=== PATIENT | female | born 1965 | race Caucasian/White ===

== ENCOUNTER 2018-08-12 06:33 | Inpatient (IN) | payer OTHER ==
[~2018-08-12] VITALS: Ht 144.8 cm; Wt 45.5 kg
[~2018-08-12 06:33] MED LIST: ACET-514 PO; ATOR20TA38 PO; CHOL100062 PO; CLON-379 PO; DICL100G37 TOP; DOCU-144 PO; ENOX40DI12 SQ; FER325 PO; HYDR5TAB7 PO; LACO10SO PO; LACT1CAP28 PO; LEVO500T48 PO; LEVO50TA7 PO; LIDO700A29 TP; LOPE-123 PO; METO-429 PO; METO-448 PO; MULTI PO; NIFE60TA18 PO; NIFE90TA PO; ONDA4TAB13 PO; ONDA4TAB14 PO; OXCA300T41 PO; PANT40TA4 PO; RISP0.2553 PO; SENOKOTS PO; SODI650T PO
--- NOTE | 2018-08-12 07:08 | ERD ---
ER Documentation Chief Complaint Chief Complaint ruma le pain r. more than l. HPI 53-year-old female history of hypertension, dyslipidemia, adrenal insufficiency, hypothyroidism, seizure disorder, recent left femoral subcapital femur fracture being treated conservatively, left pelvic fracture and recent admission August 02, 2018 through August 10, 2018 for encephalopathy presumed secondary to urinary tract infection presents the ED complaining of a 1 day history of severe, sharp, crampy and pressure-like right lower leg/calf pain which radiates up to her hip. Denies any trauma or injury since discharge. Denies weakness or numbness. No shortness of breath, cough or hemoptysis. Denies chest pain or palpitations. Mild nausea but no vomiting, hematochezia, melena or abdominal pain. No skin rash. No fevers or chills. ROS All systems reviewed and are negative except as per history of present illness. Medications Home Meds Active Scripts Levothyroxine Sodium* (Levothyroxine Sodium*) 50 Mcg Tablet, 50 MCG PO BEFORE BREAKFAST for 30 Days, #30 TAB Prov:ANALISA MOSS MD 08/10/18 Nifedipine (Procardia Xl) 90 Mg Tab.er.24, 90 MG PO DAILY for 10 Days, #10 TAB 1 Refill Prov:ANALISA MOSS MD 08/10/18 Metoprolol Tartrate* (Lopressor*) 50 Mg Tab, 50 MG PO BID for 10 Days, #20 TAB 1 Refill Prov:ANALISA MOSS MD 08/10/18 Ferrous Sulfate* (Ferrous Sulfate*) 325 Mg Tabec, 325 MG PO TID for 30 Days, #30 TAB 1 Refill Prov:ANALISA MOSS MD 08/10/18 Sennosides/Docusate Sodium (Dok Plus Tablet) 1 Each Tablet, 2 TAB PO HS for 7 Days, TAB Prov:ANALISA MOSS MD 08/09/18 Pantoprazole* (Pantoprazole*) 40 Mg Tablet.dr, 40 MG PO BID@0600,1800 for 10 Days Prov:ANALISA MOSS MD 08/09/18 Lactobacillus Rhamnosus GG (Culturelle) 1 Each Capsule, 1 CAP PO BID for 10 Days, CAP Prov:ANALISA MOSS MD 08/09/18 Risperidone* (Risperdal*) 0.25 Mg Tablet, 0.25 MG PO BID for 10 Days, TAB Prov:ANALISA MOSS MD 08/09/18 Lacosamide (Vimpat) 10 Mg/1 Ml Solution, 100 MG PO BID for 30 Days Prov:ANALISA MOSS MD 08/09/18 Oxcarbazepine* (Oxcarbazepine*) 300 Mg Tablet, 300 MG PO BID for 30 Days, TAB Prov:ANALISA MOSS MD 08/09/18 Docusate Sodium* (Colace*) 100 Mg Capsule, 100 MG PO TID, #30 CAP Prov:SARWAT CEDILLO 08/02/18 Reported Medications Sodium Bicarbonate* (Sodium Bicarbonate*) 650 Mg Tablet, 1950 MG PO TID, TAB 08/02/18 Ondansetron Hcl* (Zofran*) 4 Mg Tab, 4 MG PO Q6H PRN for NAUSEA AND OR VOMITING, TAB 08/02/18 Multivitamins* (Theragran*) 1 Tab Tab, 1 TAB PO DAILY, TAB 08/02/18 Lidocaine (Lidoderm) 1 Each Adh..patch, 1 EACH TP DAILY 08/02/18 Enoxaparin Sodium (Enoxaparin Sodium) 40 Mg/0.4 Ml Syringe, 40 MG SQ DAILY, SYR 08/02/18 Diclofenac Sodium* (Voltaren* Gel) 1% -100 Gm Gel, 2 GM TOP QID, #1 TUB 08/02/18 Clonidine Hcl* (Clonidine Hcl*) 0.1 Mg Tab, 0.1 MG PO BID PRN for ELEVATED BLOOD PRESSURE, TAB 08/02/18 Metoprolol Tartrate* (Lopressor*) 25 Mg Tab, 25 MG PO BID for HOLD IF BP <100 OR HR <55, #60 TAB 08/02/18 Loperamide Hcl* (Loperamide Hcl*) 2 Mg Cap, 2 MG PO QID PRN for DIARRHEA, CAP 08/02/18 Cholecalciferol* (Vitamin D3*) 1,000 Unit Tablet, 1000 UNIT PO DAILY, TAB 08/02/18 Nifedipine* (Nifedipine ER*) 60 Mg Tablet.sa, 60 MG PO DAILY, TAB.SA 08/02/18 Atorvastatin Calcium* (Atorvastatin Calcium*) 20 Mg Tablet, 40 MG PO DAILY, #30 TAB 08/02/18 Acetaminophen (Acetaminophen) 325 Mg Tablet, 650 MG PO Q6 PRN for PAIN, TAB 08/02/18 Discontinued Reported Medications Potassium Chloride* (Potassium Chloride*) 20 Meq Tablet.er, 20 MEQ PO BID, TAB.SA 08/02/18 Hydrocortisone* (Cortef*) 5 Mg Tab, 15 MG PO AT 9AM, #180 TAB 08/02/18 Hydrocortisone* (Cortef*) 5 Mg Tab, 10 MG PO QHS, #120 TAB 08/02/18 Hydrocortisone* (Cortef*) 5 Mg Tab, 5 MG PO AT 2PM, #60 TAB 08/02/18 Lacosamide (Vimpat) 200 Mg Tablet, 200 MG PO BID, TAB 08/02/18 Famotidine* (Famotidine*) 40 Mg Tablet, 40 MG PO BID, #60 TAB 08/02/18 Discontinued Scripts Hydrocortisone (Hydrocortisone) 5 Mg Tablet, 7.5 MG PO 1500 for 10 Days, TAB Prov:ANALISA MOSS MD 08/09/18 Hydrocortisone (Hydrocortisone) 5 Mg Tablet, 2.5 MG PO QHS for 10 Days, TAB Prov:ANALISA MOSS MD 08/09/18 Hydrocortisone (Hydrocortisone) 5 Mg Tablet, 12.5 MG PO AC BREAKFAST for 10 Days, TAB Prov:ANALISA MOSS MD 08/09/18 Levofloxacin* (Levaquin*) 500 Mg Tablet, 500 MG PO Q48H for 3 Days, TAB Prov:ANALISA MOSS MD 08/09/18 Ondansetron (Ondansetron Odt) 4 Mg Tab.rapdis, 4 MG PO Q6H PRN for NAUSEA AND/OR VOMITING, #10 TAB Prov:SARWAT CEDILLO 08/02/18 Tramadol HCl (Tramadol HCl) 50 Mg Tablet, 50 MG PO Q4 PRN for PAIN, #20 TAB Prov:SARWAT CEDILLO 08/02/18 Allergies Allergies: Coded Allergies: No Known Allergy (Unverified , 08/12/18) PMhx/Soc Reviewed in chart. As per HPI. Lives with family History of Surgery: Yes (HYSTERECTOMY, , STENTS) Anesthesia Reaction: No Hx Neurological Disorder: Yes (CVA, SEIZURES) Hx Respiratory Disorders: No Hx Cardiac Disorders: Yes (HTN, HYPOTENSION) Hx Psychiatric Problems: Yes (HALLUCINATIONS) Hx Miscellaneous Medical Probl: No Hx Alcohol Use: No Hx Substance Use: No Hx Tobacco Use: No FmHx No stroke or cancer Physical Exam Vitals Vital Signs Date Temp Pulse Resp B/P (MAP) Pulse Ox O2 O2 Flow FiO2 Time Delivery Rate 08/12/18 99.0 131 20 170/76 98 Room Air 12:00 (107) 08/12/18 99.0 120 20 168/66 98 Room Air 11:00 (100) 08/12/18 99.0 122 20 155/91 98 Room Air 10:58 (112) 08/12/18 101.6 126 20 155/91 100 Room Air 10:00 (112) 08/12/18 Nasal 08:09 Cannula 08/12/18 102.9 120 20 134/90 98 Room Air 08:00 (105) 08/12/18 103.2 129 20 174/85 100 Room Air 07:00 (114) Physical Exam Const: Severe distress due to pain Head: Atraumatic Eyes: Pupils equal reactive to light, extraocular movements are intact. No nystagmus. Normal Conjunctiva ENT: Normal External Ears, Nose and Mouth. Neck: Full range of motion. Nontender. No lymphadenopathy. No JVD. No meningismus. Resp: Breath sounds are equal and clear to auscultation bilaterally. No rales rhonchi or wheezes Cardio: Tachycardic. Regular rate and rhythm, no murmurs Abd: Soft, non tender, non distended. Normal bowel sounds Skin: No petechiae or rashes Back: No midline tenderness to palpation or percussion. No paraspinal muscle spasm. No CVA tenderness. Ext: Right lower extremity: No skin changes or rash. No edema. Severe calf tenderness but no swelling. No subcutaneous crepitus or lymphadenopathy. No ankle or knee swelling, tenderness or deformity. Range of motion is grossly normal. Distal neurovascular intact. Neur: Awake and alert. Cranial nerves II through XII are grossly intact. Motor and sensory are equal bilaterally. Plantar reflexes are downgoing. Psych: Anxious. Cooperative. Result Diagram: 08/16/18 0749 08/16/18 0749 Results 24 hrs Laboratory Tests Test 08/12/18 08:14 08/12/18 08:20 08/12/18 09:50 08/12/18 10:16 POC Venous Lactate 2.3 mmol/L 1.8 mmol/L White Blood Count 37.0 10^3/ul Red Blood Count 3.16 10^6/ul Hemoglobin 10.0 g/dl Hematocrit 30.7 % Mean Corpuscular 97.2 fl Volume Mean Corpuscular 31.6 pg Hemoglobin Mean Corpuscular 32.6 g/dl Hemoglobin Concent Red Cell 16.3 % Distribution Width Platelet Count 273 10^3/UL Mean Platelet 9.1 fl Volume Immature 1.900 % Granulocytes % Neutrophils % % Segmented 74 % Neutrophils % (Manual) Band Neutrophils % 7 % (Manual) Lymphocytes % % Lymphocytes % 9 % (Manual) Reactive 9 % Lymphocytes % (Manual) Monocytes % % Monocytes % 1 % (Manual) Eosinophils % % Basophils % % Nucleated Red Blood 0.0 /100WBC Cells % Immature 0.720 10^3/ul Granulocytes # Neutrophils # 10^3/ul Neutrophils # 28.3 10^3/ul (Manual) Band Neutrophils # 2.5 10^3/ul Lymphocytes 3.3 10^3/ul (Manual) Lymphocytes # 10^3/ul Reactive 3.3 10^3/ul Lymphocytes # Monocytes # 10^3/ul Monocytes # 0.3 10^3/ul (Manual) Eosinophils # 10^3/ul Basophils # 10^3/ul Nucleated Red Blood 10^3/ul Cells # White Cell @See below Morphology Comment Platelet Estimate NORMAL Polychromasia 2+ Poikilocytosis 1+ Anisocytosis 1+ Red Cell Morphology @See below Comment Prothrombin Time 13.1 Sec Prothrombin Time 1.0 Ratio INR International 0.98 Normalized Ratio Activated 29.2 Sec Partial Thromboplas t Time Sodium Level 139 mmol/L Potassium Level 4.0 mmol/L Chloride Level 112 mmol/L Carbon Dioxide 14 mmol/L Level Anion Gap 13 Blood Urea Nitrogen 17 mg/dl Creatinine 1.25 mg/dl Est Glomerular 45 mL/min Filtrat Rate mL/min Glucose Level 88 mg/dl Calcium Level 8.2 mg/dl Total Bilirubin 0.0 mg/dl Direct Bilirubin 0.00 mg/dl Indirect Bilirubin 0.0 mg/dl Aspartate Amino 43 IU/L Transf (AST/SGOT) Alanine 20 IU/L Aminotransferase (A LT/SGPT) Alkaline 98 IU/L Phosphatase Troponin I < 0.012 ng/ml C-Reactive Protein 4.4 mg/dl Total Protein 6.3 g/dl Albumin 3.5 g/dl Globulin 2.80 g/dl Albumin/Globulin 1.25 Ratio Urine Color YELLOW Urine Clarity CLEAR Urine pH 5.0 Urine Specific 1.013 [place] Urine Ketones NEGATIVE mg/dL Urine Nitrite NEGATIVE mg/dL Urine Bilirubin NEGATIVE mg/dL Urine Urobilinogen NEGATIVE mg/dL Urine Leukocyte NEGATIVE [place]/ul Esterase Urine Hemoglobin NEGATIVE mg/dL Urine Glucose NEGATIVE mg/dL Urine Total Protein NEGATIVE mg/dl Test 08/12/18 11:15 Lactic Acid Level 1.6 mmol/L Current Medications Medications Dose Sig/Mery Start Time Status Last (Trade) Ordered Route PRN Stop Time Admin Dose Reason Admin Sodium 1,360 ml BOLUS OVER 2 08/12/18 DC 08/12/18 Chloride HOURS STAT 07:13 08/12/18 07:49 (NS) IV* 07:15 650 mg ONCE STAT 08/12/18 DC 08/12/18 Acetaminophen PO 07:13 08/12/18 07:49 (Tylenol 07:15 Tab) Cefepime HCl 50 ml @ ONCE STAT 08/12/18 DC 08/12/18 100 mls/hr IVPB 07:13 08/12/18 08:23 07:42 Vancomycin 250 ml @ ONCE ONCE 08/12/18 DC 08/12/18 HCl 125 mls/hr IVPB 07:30 08/12/18 09:29 09:29 0.5 mg ONCE STAT 08/12/18 DC 08/12/18 Hydromorphone IM 07:37 08/12/18 07:47 HCl 07:39 (Dilaudid) Lidocaine 5 ml ONCE ONCE 08/12/18 DC (Xylocaine SC 09:00 08/12/18 1% (Mpf)) 09:01 0.5 mg ONCE STAT 08/12/18 DC 08/12/18 Hydromorphone IV 11:05 08/12/18 11:10 HCl 11:06 (Dilaudid) Ondansetron 4 mg ER BRIDGE 08/12/18 DC 08/13/18 HCl (Zofran PRN IV 12:00 08/13/18 08:53 Inj) NAUSEA/VOMITI 11:59 NG 650 mg ER BRIDGE 08/12/18 DC 08/12/18 Acetaminophen PRN PO 12:00 08/13/18 17:53 (Tylenol .MILD PAIN 11:59 Tab) 1-3 OR TEMP Procedures/MDM DOCUMENTS REVIEWED: ED nurse, prior ED, prior records and lab results. LAB INTERPRETATION: CBC to evaluate for leukocytosis, anemia and thrombocytopen ia reveals a significant leukocytosis of 37,000 and anemia with H/H 10/30.7 which is actually improved from 7.6/23.4 on August 08. Chemistry to evaluate for electrolyte abnormalities and renal insufficiency reveals a metabolic acidosis with a bicarb of 14, elevated creatinine consistent with previously diagnosed chronic kidney disease consistent with prior results but no acute electrolyte abnormalities or hyperglycemia. Troponin is negative. Initial lactate is 2.3 and repeat is 1.8. Urinalysis is negative for hematuria, pyuria or bacteria and a culture is pending. EKG: Time: 08. Sinus tachycardia. Ventricular rate 117. Nonspecific T wave changes. No acute ST elevation or depression. No ectopy. My Interpretation IMAGING: PROCEDURE: XR Chest. CLINICAL INDICATION: chest pain TECHNIQUE: Single frontal view of the chest was obtained COMPARISON: None FINDINGS: The heart and mediastinum are within normal limits. The lungs are clear. There is no pleural effusion or pneumothorax. RPTAT: AA IMPRESSION: No acute disease. .Hilton Monson MD, Date Time Electronically viewed and signed by .Hilton Monson MD, MD on 08/12/2018 07:59 .S/ PROCEDURE: US Lower extremity Venous. CLINICAL INDICATION: Right leg edema, pain TECHNIQUE: Multiple sonographic images of the right lower extremity deep venous system was obtained utilizing grayscale, color-flow, compressive sonography and doppler imaging with augmentation. The images were reviewed on a PACS workstation. COMPARISON: None. FINDINGS: There is normal compressibility and flow within the right common femoral, femoral, posterior tibial, peroneal and popliteal veins. RPTAT: AA IMPRESSION: No sonographic evidence for deep venous thrombosis. .Hilton Monson MD, MD Date Time Electronically viewed and signed by .Hilton Monson MD, MD on 08/12/2018 07:49 .S/ PROCEDURE: Right leg series CLINICAL INDICATION: Pain TECHNIQUE: AP and lateral portable right leg images were obtained. COMPARISON: None FINDINGS: No evidence of acute fractures or dislocations. The bony mineralization is normal. No focal bony blastic or lytic lesions or erosions. Soft tissues are unremarkable. IMPRESSION: No evidence of acute fracture or or malalignment. RPTAT:AAJJ Physician Afshan Date Time Electronically viewed and signed by Physician Afshan on 08/12/2018 09:12 BM/ ED COURSE: [] MEDICAL DECISION MAKIN-year-old female history of hypertension, dy slipidemia, adrenal insufficiency, hypothyroidism, seizure disorder, recent left femoral subcapital femur fracture being treated conservatively, left pelvic fracture and recent admission August 02, 2018 through August 10, 2018 for encephalopathy presumed secondary to ESBL urinary tract infection presents the ED complaining of a 1 day history of severe, sharp, crampy and pressure-like right lower leg/calf pain which radiates up to her hip. Patient with multiple criteria for systemic inflammatory response syndrome including fever, tachycardia, tachypnea and leukocytosis. Elevated lactate 2.3 mmol/L consistent with severe sepsis. No hypotension or criteria for septic shock. Normal salin e 30 cc/kg fluid boluses given and broad spectrum antibiotics initiated after cultures. Infectious etiology is not established. Urinalysis is negative as patient has just completed a course of antibiotics. No radiographic evidence of pneumonia. Abdominal exam is benign without significant tenderness, rebound, guarding, signs of peritonitis or an acute intra-abdominal process including but not limited to appendicitis, diverticulitis, mesenteric ischemia and colitis hence imaging is deferred. No meningismus, signs of meningitis or encephalitis and CT/lumbar puncture was deferred. MRI brain from08/04/2018 reviewed. Leg pain of uncertain etiology. No radiographic evidence of acute bony injury, fracture or dislocation. Venous Dopplers are negative for deep vein thrombosis. No signs of cellulitis or necrotizing fasciitis. No midline back tenderness or acute neurologic deficit or however discitis and spinal epidural abscess were considered. Patient required multiple doses of intravenous opiates for pain control. Patient's infectious symptoms have not stabilized and the patient is a t risk of rapid decompensation. The patient will be admitted to a monitored bed for careful hydration, antibiotic therapy, infectious source control, further evaluation and management. PATIENT CARE TRANSITIONED: Time: 10:24, Dr. Moss. Severe Sepsis criteria: Infectious source: Undefined End organ damage indicated by: Lactate > 2.0 mmol/L Sepsis Management: Time of recognition of severe sepsis: 08:14 Within 3 hours of recognition: Blood cultures x 2 before broad-spectrum antibiotics:Yes 30 ml/kg NS bolus Completed Initial lactate 2.3 Repeat lactate 1.8 Septic Shock Assessment: Any lactic acid > 4.0 No Persistent hypotension (SBP < 90 or 40 mmHg drop, MAP < 65) despite 30 mL/kg IV fluid bolus No Central line Not indicated and PICC is to be placed Critical Care Time: 35 minutes Treatments/Evaluations: Close monitoring and treatment of unstable vital signs, cardiorespiratory, and neurologic status, while maintaining tight balance of fluid, respiratory, and cardiac interventions. This includes the administration of emergency fluid management while maintaining close respiratory support as well as the provision of immediate and broad-spectrum antibiotic therapy, while performing a simultaneous assessment for possible sources in order to direct targeted therapy. This time includes discussing the case with the patient and the patient's family. This time also includes the consideration for invasive and chemical support to prevent cardiopulmonary collapse. This time does not include all procedures stated elsewhere in this record. This time also includes reviewing old records, labs and radiological studies. This time includes examining and re-examining the patient. Additionally, this time also includes arranging care with admitting and consulting physicians. Departure Diagnosis: Primary Impression: Pain of right leg Additional Impressions: Fever Fever type: unspecified Qualified Codes: R50.9 - Fever, unspecified SIRS (systemic inflammatory response syndrome) History of adrenal insufficiency Hypothyroidism Hypothyroidism type: unspecified Qualified Codes: E03.9 - Hypothyroidism, unspecified Subcapital fracture of left femur Encounter type: sequela Fracture type: closed Qualified Codes: S72.012S - Unspecified intracapsular fracture of left femur, sequela Condition: Serious NATA SCHWARTZ MD Aug 12, 2018 07:08
[2018-08-12] MEDS ORDERED: ACETAMINOPHEN 325 MG TAB PO STA (07:13)
[2018-08-12] MEDS ORDERED: CEFEPIME 2GM/50 ML (PMX) 50 ML IVPB STA (07:13)
[2018-08-12] MEDS ORDERED: SODIUM CHLORIDE 0.9% 1L BAG IV* STA (07:13)
[2018-08-12] MEDS ORDERED: VANCOMYCIN 1 GM (PMX) 250 ML IVPB ONE (07:30)
[2018-08-12] MEDS ORDERED: HYDROmorphONE 0.5 MG/0.5 ML SYG IM STA (07:37)
[2018-08-12] MEDS ORDERED: LIDOCAINE 1% (MPF) 5 ML VIAL SC ONE (09:00)
[2018-08-12] MEDS ORDERED: HYDROmorphONE 0.5 MG/0.5 ML SYG IV STA (11:05)
[2018-08-12] MEDS ORDERED: ACETAMINOPHEN 325 MG TAB PO PRN (12:00)
[2018-08-12 12:55] VITALS: PULSE 133
[2018-08-12 13:00] VITALS: BP 178/77; PULSE 134; RESP 26; Ht 144.8 cm; Wt 45.5 kg
[2018-08-12] MEDS ORDERED: NACL 0.9% 3 ML SYG IV SCH (13:30)
[2018-08-12] MEDS ORDERED: ACETAMINOPHEN 650 MG SUPP PR PRN (13:30)
[2018-08-12] MEDS: morphine 4 MG/ML VIAL IV PRN ×3 (14:18→22:41)
[2018-08-12] MEDS: SOD CHLORIDE 0.9% 1,000 ML IV SCH (14:20)
--- NOTE | 2018-08-12 15:22 | HP ---
Date/Time of Note Date/Time of Note DATE: 08/12/18 TIME: 15:18 Assessment/Plan VTE Prophylaxis SCD contraindicated: bilateral LE trauma Pharmacological prophylaxis: LMWH Lines/Catheters IV Catheter Type (from Nrsg): PICC Line Central line still needed: Yes Urinary Cath still in place: Yes Reason Cath still needed: skin wounds contaminated by urine Assessment/Plan Hospital Course Chief complaint Pain History of present illness 53-year-old female admitted with bilateral leg pain? Poor historian due to psychosis? -Recently discharged after a stay here for altered mental status. ER: Stable vital signs, kept fever Medical history Surgical history PELVIC XRIMPRESSION: Impacted, minimally displaced fracture through the subcapital left femoral neck. Sclerosis at the fracture site could reflect healing and the fracture could be subacute to chronic. The healing or healed left superior and inferior pubic rami fractures and left sacral ala fracture are not well visualized on the current x-ray. Osteopenia. Moderate osteoarthritis of both hips. Degenerative changes in the lower lumbar spine. Potential subcutaneous fat stranding over the left hip. Finding could reflect edema or bruising. If further characterization is needed CT or MRI could be helpful. If there is high clinical suspicion for additional traumatic injury, further evaluation with CT should be considered. Social history No active tobacco or alcohol. Has psychosis placement may be an issue Review of systems Neuro: No loss of vision or vision headache Cardia vascular: No chest pain no dyspnea no edema lungs Lungs: No cough no wheezing no fever Abdomen: Pain no nausea vomiting Genitourinary: No dysuria hematuria positive pain Musculoskeletal: Moderate gait dysfunction respiration anemia Psychiatry: Little bit agitation anxiety distress Endocrine: No increased diabetes dyslipidemia.. Positive adrenal insufficiency and hypothyroidism Hematologic system no: No hematochezia melena hematuria Constitutional: No fever no chills no weight loss that I am aware of Exam No pallor adenopathy Regular Clear Bs+ nt nd; no RRG Both extremities without any hypotonia reflex symmetrical. Diminished range of motion left greater than right hip A/P 1. Fever with leukocytosis r/o sepsis. [Await urine blood culture skin, consider om/ discitis]. Probable Sirs due to pelvic fracture pain. 2. Subacute pelvic fracture 3. Subacute left hip fracture on conservative management may need orthopedic surgery 4. Adrenal insufficiency 5. Hypothyroidism 6. 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 stable for re-eval as outpatient. 9. Nonadherence to meds, for her endocrine processes. Presently excepting replacement therapy. 10. History of stroke 11. History of seizures? 12. Chr hallucinations for many months possible acute psychosis vs delirium. 13. Recent ESBL cystitis s/p Levaquin. 14. Ckd III 15. Dyslipidemia 16. Hypertension 17. Constipation 18. Mechanical fall fractures a few months back 19. Left femur subcapital fracture, subacute. On conservative management treat pain PT probably nonweightbearing. 20. Left pelvic fracture, subacute 21. L4 fracture 22. Secondary osteoporosis? Result Diagram: 08/12/18 0820 08/12/18 0820 Results 24hrs Laboratory Tests Test 08/12/18 08:14 08/12/18 08:20 08/12/18 09:50 08/12/18 10:16 POC Venous Lactate 2.3 *H 1.8 White Blood Count 37.0 #H Red Blood Count 3.16 #L Hemoglobin 10.0 #L Hematocrit 30.7 #L Mean Corpuscular Volume 97.2 Mean Corpuscular 31.6 Hemoglobin Mean Corpuscular 32.6 Hemoglobin Concent Red Cell Distribution 16.3 H Width Platelet Count 273 Mean Platelet Volume 9.1 Immature Granulocytes % 1.900 H Neutrophils % Segmented Neutrophils 74 % (Manual) Band Neutrophils % 7 H (Manual) Lymphocytes % Lymphocytes % (Manual) 9 L Reactive Lymphocytes 9 H % (Manual) Monocytes % Monocytes % (Manual) 1 Eosinophils % Basophils % Nucleated Red Blood 0.0 Cells % Immature Granulocytes # 0.720 H Neutrophils # Neutrophils # (Manual) 28.3 H Band Neutrophils # 2.5 H Lymphocytes (Manual) 3.3 H Lymphocytes # Reactive Lymphocytes # 3.3 H Monocytes # Monocytes # (Manual) 0.3 Eosinophils # Basophils # Nucleated Red Blood Cells # White Cell Morphology @See below Comment Platelet Estimate NORMAL Polychromasia 2+ Poikilocytosis 1+ Anisocytosis 1+ Red Cell Morphology @See below Comment Prothrombin Time 13.1 Prothrombin Time Ratio 1.0 INR International 0.98 Normalized Ratio Activated 29.2 Partial Thromboplast Time Sodium Level 139 Potassium Level 4.0 Chloride Level 112 H Carbon Dioxide Level 14 L Anion Gap 13 Blood Urea Nitrogen 17 Creatinine 1.25 H Est Glomerular Filtrat 45 L Rate mL/min Glucose Level 88 Calcium Level 8.2 L Total Bilirubin 0.0 L Direct Bilirubin 0.00 Indirect Bilirubin 0.0 Aspartate Amino 43 Transf (AST/SGOT) Alanine 20 Aminotransferase (ALT/SG PT) Alkaline Phosphatase 98 Troponin I < 0.012 C-Reactive Protein 4.4 H Total Protein 6.3 Albumin 3.5 Globulin 2.80 Albumin/Globulin Ratio 1.25 Urine Color YELLOW Urine Clarity CLEAR Urine pH 5.0 Urine Specific [place] 1.013 Urine Ketones NEGATIVE Urine Nitrite NEGATIVE Urine Bilirubin NEGATIVE Urine Urobilinogen NEGATIVE Urine Leukocyte Esterase NEGATIVE Urine Hemoglobin NEGATIVE Urine Glucose NEGATIVE Urine Total Protein NEGATIVE Test 08/12/18 11:15 Lactic Acid Level 1.6 HPI/ROS Admit Date/Time Admit Date/Time Aug 12, 2018 at 12:45 PMH/Family/Social Past Medical History Medications Current Medications Ondansetron HCl (Zofran Inj) 4 mg ER BRIDGE PRN IV NAUSEA/VOMITING; Start 08/12/18 at 12:00; Stop 08/13/18 at 11:59 Acetaminophen (Tylenol Tab) 650 mg ER BRIDGE PRN PO .MILD PAIN 1-3 OR TEMP; Start 08/12/18 at 12:00; Stop 08/13/18 at 11:59 Sodium Chloride 1,000 ml @ 100 mls/hr Q10H IV Last administered on 08/12/18at 14:20; Admin Dose 100 MLS/HR; Start 08/12/18 at 13:16 IV Flush (NS 3 ml) 3 ml PER PROTOCOL IV ; Start 08/12/18 at 13:30 Ondansetron HCl (Zofran Inj) 4 mg Q6H PRN IV NAUSEA/VOMITING; Start 08/12/18 at 13:30 Acetaminophen (Tylenol Tab) 650 mg Q6H PRN PO .PAIN 1-3 OR TEMP; Start 08/12/18 at 13:30 Acetaminophen (Tylenol Supp) 650 mg Q6H PRN [place] .PAIN 1-3 OR TEMP; Start 08/12/18 at 13:30 Acetaminophen/ Hydrocodone Bitart ([place] (5/325)) 1 tab Q6H PRN PO .MOD PAIN 4- 6; Start 08/12/18 at 13:30 Morphine Sulfate (morphine) 2 mg Q4H PRN IV .SEVERE PAIN 7-10 Last administered on 08/12/18at 14:18; Admin Dose 2 MG; Start 08/12/18 at 13:30 Coded Allergies: No Known Allergy (Unverified , 08/12/18) Past Surgical History Past Surgical Hx: noncontributory Family History Significant Family History: no pertinent family hx Social History Smoking Status: Never smoker Exam/Review of Systems Vital Signs Vitals Vital Signs Date Temp Pulse Resp B/P (MAP) Pulse Ox O2 O2 Flow FiO2 Time Delivery Rate 08/12/18 99.8 134 26 178/77 98 Room Air 13:00 (110) ANALISA MOSS MD Aug 12, 2018 15:22
[2018-08-12] MEDS ORDERED: HYDROmorphONE 2 MG/ML SYG IV STA (15:28)
[2018-08-12] MEDS ORDERED: LABETALOL HCL 20MG INJ IV ONE (15:30)
[2018-08-12 15:46] VITALS: BP 129/58; PULSE 148; RESP 20
[2018-08-12 16:00] VITALS: PULSE 147
[2018-08-12] MEDS: CLONIDINE 0.1 MG/24 HR PATCH TRANSDERM SCH (17:54)
[2018-08-12] MEDS: PANTOPRAZOLE (EC) 40 MG TAB PO SCH (17:54)
[2018-08-12] MEDS: DICLOFENAC SODIUM 1% GEL 100 GM TUBE TP SCH ×2 (17:54→20:23)
[2018-08-12 20:00] VITALS: PULSE 129
[2018-08-12 20:16] VITALS: BP 125/58; PULSE 131; RESP 21
[2018-08-12] MEDS: LACOSAMIDE (100 MG/10 ML PO SYR) PO SCH (20:21)
[2018-08-12] MEDS: RISPERIDONE 0.25 MG TAB PO SCH (20:22)
[2018-08-12] MEDS: LACTOBACILLUS RHAMNOSUS CAP PO SCH (20:22)
[2018-08-12] MEDS: OXCARBAZEPINE 300 MG TAB PO SCH (20:22)
[2018-08-12] MEDS: SENNA/DOCUSATE NA (8.6MG/50MG) TAB PO SCH (20:22)
[2018-08-12] MEDS ORDERED: ZOLPIDEM 5 MG TAB PO ONE (21:00)
[2018-08-12] MEDS: ACETAMINOPHEN 325 MG TAB PO PRN (23:20)
[2018-08-13] VITALS (12 sets, daily range): BP systolic 84–141; BP diastolic 44–64; PULSE 76–138; RESP 18–22
[2018-08-13] MEDS: IBUPROFEN 600 MG TAB PO PRN (01:08)
[2018-08-13] MEDS: morphine 4 MG/ML VIAL IV PRN ×3 (04:13→16:06)
[2018-08-13] MEDS: ONDANSETRON 4 MG INJ IV PRN ×2 (05:37→08:53)
[2018-08-13] MEDS: PANTOPRAZOLE (EC) 40 MG TAB PO SCH ×2 (05:37→17:32)
[2018-08-13] MEDS: LEVOTHYROXINE 50 MCG TAB PO SCH (06:42)
[2018-08-13] MEDS: SOD CHLORIDE 0.9% 1,000 ML IV SCH ×2 (06:50→16:02)
[2018-08-13] MEDS: OXCARBAZEPINE 300 MG TAB PO SCH ×2 (08:46→20:40)
[2018-08-13] MEDS: NIFEdipine (XL) 90 MG TAB PO SCH (08:46)
[2018-08-13] MEDS: FAMOTIDINE 20 MG INJ IV SCH (08:46)
[2018-08-13] MEDS: LACOSAMIDE (100 MG/10 ML PO SYR) PO SCH ×2 (08:46→20:48)
[2018-08-13] MEDS: LACTOBACILLUS RHAMNOSUS CAP PO SCH ×2 (08:46→20:40)
[2018-08-13] MEDS: RISPERIDONE 0.25 MG TAB PO SCH ×2 (08:46→20:41)
[2018-08-13] MEDS: DICLOFENAC SODIUM 1% GEL 100 GM TUBE TP SCH ×4 (08:48→20:41)
[2018-08-13] MEDS: LIDOCAINE 5% PATCH TRANSDERM SCH (08:48)
[2018-08-13] MEDS: ENOXAPARIN 40 MG/0.4 ML SYG SC SCH (09:10)
--- NOTE | 2018-08-13 12:54 | CONS ---
DATE OF ADMISSION: 08/12/2018 DATE OF CONSULTATION: 08/13/2018 TYPE OF CONSULTATION: Infectious disease. REASON FOR CONSULTATION: Antibiotic management. HISTORY OF PRESENT ILLNESS: Itzel Casillas is a 53-year-old female who comes in with bilatera l lower extremity pain, right greater than left. Her past problems include: 1. Status post hysterectomy. 2. Status post . 3. Stents placed. 4. History of CVA. 5. Seizures. 6. Hypertension. 7. Hallucinations. On admission, her white count was 37,000, H and H of 10 and 30.7, platelet count 273,000. BUN and cr eatinine is 17/1.25. Her temperature was up to 103.4. The patient was in sinus tachycardia at a rat e of 117. Her chest x-ray showed no acute disease. Her DVT studies showed no sonographic evidence o f DVTs. There was no evidence of acute fracture or malalignment. The patient has systemic inflammat ory response syndrome. Her blood cultures so far are negative. Urine culture is negative. C. diffi cile is negative. The patient has a PICC line placed and a Flowers catheter placed. The patient has a history of psychosis, recently discharged after stay for altered mental status. PHYSICAL EXAMINATION: GENERAL: She is an elderly, ill-appearing female who is awake, responsive, in no acute distress. VITAL SIGNS: As outlined. Pulse is up to 130, T-max 103.4. SKIN: Without generalized rash. HEENT: Within normal limits. NECK: Supple. LYMPH NODES: None palpable. CHEST: Decreased breath sounds at the bases. HEART: Without murmur or gallop. ABDOMEN: Soft, nontender without organosplenomegaly or masses. EXTREMITIES: Without cyanosis, clubbing or edema. RECTAL AND GENITAL: Deferred. NEUROLOGICAL: No focal neurological abnormality. IMPRESSION AND PLAN: The patient presents now with systemic inflammatory response syndrome with feve rs. Etiology of her sepsis is unclear. We would consider osteomyelitis and diskitis. She has numer ous problems as outlined. She has chronic encephalopathy with myopathy, recent extended-spectrum bet a-lactamase cystitis. Continue on current therapy. At the present time from what I can see, she is off all antibiotics since all of her cultures so far are negative. We will continue to observe. I w ill dictate my findings to the hospitalist, Dr. Moss. Dictated By: KELVIN PIÑA MD, JD/JORDYN Conf#: [id number] DID#: [id number] CC: ANALISA MOSS MD;*EndCC*
[2018-08-13] MEDS: HYDROCODONE/APAP (5/325) TAB PO PRN (13:10)
--- NOTE | 2018-08-13 18:00 | PN ---
Date/Time of Note Date/Time of Note DATE: 08/13/18 TIME: 17:58 Assessment/Plan VTE Prophylaxis Risk score (from Ns)>0 risk: 10 SCD applied (from Ns): No SCD contraindicated: other Pharmacological prophylaxis: LMWH Lines/Catheters IV Catheter Type (from [facility]): PICC Line Central line still needed: Yes Urinary Cath still in place: Yes Reason Cath still needed: other (indicate) Assessment/Plan Hospital Course SUBJECTIVE: Complains of B/L LE pain. OBJECTIVE: Physical Exam general: Adequately build 53 year-old female lying in bed in no apparent distress. HEENT: Normocephalic, atraumatic. Eyes: Anicteric sclerae, conjunctivae clear. ENT: Nasal septum midline, oral mucosa moist. Neck supple. Respiratory: Bilaterally clear breath sounds. No use of accessory muscles of respiration. No adventitious breath sounds. Cardiovascular: S1, S2 heard. Regular rate and rhythm. Abdomen: Soft and nondistended. Left upper quadrant tenderness. Bowel sounds positive in all 4 quadrants. Genitourinary: Deferred. Extremities: No cyanosis, no clubbing, no edema. Peripheral pulses palpable. Neurologic: The patient is awake and alert. Oriented to self. Flat affect. Skin: Normal skin turgor. No skin rashes. Labs & Vitals per chart ASSESSMENT & PLAN 53-year-old female with comorbidities including hypertension, dyslipidemia, hypothyroidism, chronic kidney disease, GERD, CVA, and chronic pelvic fracture and chronic sub-capital left femoral fracture. The patient was recently discharged from [facility] on 08/10/2018 when she had a E. coli ESBL urinary tract infection. The patient returned back to the emergency room at [facility] on 08/12/2018 because of fevers and bilateral lower extremity edema. The patient was noticed to have leukocytosis with a WBC of 37,000 and febrile illn ess with underlying tachycardia. Therefore, the patient was admitted to inpatient setting for further treatment and evaluation. 1. Sepsis with leukocytosis, febrile illness, bandemia, and tachycardia, present on admission. -Etiology unclear. -Status post antimicrobials. -Currently off antimicrobials since cultures are negative. -Being followed by infectious diseases. 2. Persistent leukocytosis -Etiology unclear. -The patient be monitored off antimicrobials. 3. Chronic kidney disease. -Continue to monitor BUN and creatinine closely. 4. Seizure disorder. -Continue Vimpat. 5. 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 -Continue conservative management. 6. Essential hypertension. -Continue antihypertensives. 7. GERD. -Continue PPI. 8. Chronic encephalopathy. -Status post evaluation by neurology on her previous visit. -Refused lumbar puncture. 9. Dyslipidemia. -Continue statins. 10. Normocytic, normochromic anemia. -Monitor H&H closely. 11. Fluids, electrolytes, and nutrition. -Low-cholesterol diet. 12. DVT prophylaxis. -Subcutaneous Lovenox (renal dose). 13. Plan. -Monitor leukocytosis. -Await clinical improvement. The patient was seen in collaboration with Dr. Olson Result Diagram: 08/13/18 0554 08/13/18 0554 Results 24hrs Laboratory Tests Test 08/13/18 05:54 White Blood Count 51.5 #H Red Blood Count 2.73 L Hemoglobin 8.7 L Hematocrit 27.2 L Mean Corpuscular Volume 99.6 Mean Corpuscular Hemoglobin 31.9 Mean Corpuscular Hemoglobin Concent 32.0 Red Cell Distribution Width 17.2 H Platelet Count 245 Mean Platelet Volume 9.3 Immature Granulocytes % 9.400 H Neutrophils % Segmented Neutrophils % (Manual) 83 H Band Neutrophils % (Manual) 10 H Lymphocytes % Lymphocytes % (Manual) 6 L Monocytes % Monocytes % (Manual) 1 Eosinophils % Basophils % Nucleated Red Blood Cells % 0.0 Immature Granulocytes # 4.850 H Neutrophils # Neutrophils # (Manual) 45.4 H Band Neutrophils # 5.1 H Lymphocytes (Manual) 3.0 H Lymphocytes # Monocytes # Monocytes # (Manual) 0.5 Eosinophils # Basophils # Nucleated Red Blood Cells # Platelet Estimate NORMAL Poikilocytosis 1+ Sodium Level 139 Potassium Level 4.2 Chloride Level 120 H Carbon Dioxide Level 11 L Anion Gap 8 Blood Urea Nitrogen 22 H Creatinine 1.95 H Est Glomerular Filtrat Rate mL/min 27 L Glucose Level 74 Calcium Level 6.9 L Creatine Kinase 85 Troponin I 0.033 Exam/Review of Systems Exam Vitals Vital Signs Date Temp Pulse Resp B/P (MAP) Pulse Ox O2 O2 Flow FiO2 Time Delivery Rate 08/13/18 117 16:30 08/13/18 99.2 20 120/63 96 16:05 (82) 08/13/18 Room Air 05:07 Intake and Output 08/12/18 08/12/18 08/13/18 1515:00 23:00 07:00 IntakeIntake Total 850 ml OutputOutput Total 500 ml 425 ml BalanceBalance -500 ml 425 ml Results Results 24hrs Laboratory Tests Test 08/13/18 05:54 White Blood Count 51.5 #H Red Blood Count 2.73 L Hemoglobin 8.7 L Hematocrit 27.2 L Mean Corpuscular Volume 99.6 Mean Corpuscular Hemoglobin 31.9 Mean Corpuscular Hemoglobin Concent 32.0 Red Cell Distribution Width 17.2 H Platelet Count 245 Mean Platelet Volume 9.3 Immature Granulocytes % 9.400 H Neutrophils % Segmented Neutrophils % (Manual) 83 H Band Neutrophils % (Manual) 10 H Lymphocytes % Lymphocytes % (Manual) 6 L Monocytes % Monocytes % (Manual) 1 Eosinophils % Basophils % Nucleated Red Blood Cells % 0.0 Immature Granulocytes # 4.850 H Neutrophils # Neutrophils # (Manual) 45.4 H Band Neutrophils # 5.1 H Lymphocytes (Manual) 3.0 H Lymphocytes # Monocytes # Monocytes # (Manual) 0.5 Eosinophils # Basophils # Nucleated Red Blood Cells # Platelet Estimate NORMAL Poikilocytosis 1+ Sodium Level 139 Potassium Level 4.2 Chloride Level 120 H Carbon Dioxide Level 11 L Anion Gap 8 Blood Urea Nitrogen 22 H Creatinine 1.95 H Est Glomerular Filtrat Rate mL/min 27 L Glucose Level 74 Calcium Level 6.9 L Creatine Kinase 85 Troponin I 0.033 Medications Medication Current Medications Sodium Chloride 1,000 ml @ 50 mls/hr Q20H IV Last administered on 08/13/18at 16:02; Admin Dose 50 MLS/HR; Start 08/12/18 at 13:16 IV Flush (NS 3 ml) 3 ml PER PROTOCOL IV ; Start 08/12/18 at 13:30 Ondansetron HCl (Zofran Inj) 4 mg Q6H PRN IV NAUSEA/VOMITING; Start 08/12/18 at 13:30 Acetaminophen (Tylenol Tab) 650 mg Q6H PRN PO .PAIN 1-3 OR TEMP Last administered on 08/12/18at 23:20; Admin Dose 650 MG; Start 08/12/18 at 13:30 Acetaminophen (Tylenol Supp) 650 mg Q6H PRN [place] .PAIN 1-3 OR TEMP; Start 08/12/18 at 13:30 Acetaminophen/ Hydrocodone Bitart ([place] (5/325)) 1 tab Q6H PRN PO .MOD PAIN 4-6 Last administered on 08/13/18 13:10; Admin Dose 1 TAB; Start 08/12/18 at 13:30 Morphine Sulfate (morphine) 2 mg Q4H PRN IV .SEVERE PAIN 7-10 Last administered on 08/13/18 16:06; Admin Dose 2 MG; Start 08/12/18 at 13:30 Clonidine HCl (Catapres-Tts 1 Patch) 1 patch Q7D TRANSDERM Last administered on 08/12/18 17:54; Admin Dose 1 PATCH; Start 08/12/18 at 17:00 Famotidine (Pepcid Iv) 20 mg DAILY IV Last administered on 08/13/18 08:46; Admin Dose 20 MG; Start 08/13/18 at 09:00 Enoxaparin Sodium (Lovenox) 40 mg DAILY SC Last administered on 08/13/18 09:10; Admin Dose 40 MG; Start 08/13/18 at 09:00 Senna/Docusate Sodium (Senokot-S) 2 tab HS PO Last administered on 08/12/18 20:22; Admin Dose 2 TAB; Start 08/12/18 at 21:00 Diclofenac Sodium (Voltaren 1% Gel) 2 gm QID TP Last administered on 08/13/18 16:02; Admin Dose 2 GM; Start 08/12/18 at 17:00 Lacosamide (Vimpat Liq) 100 mg BID PO Last administered on 08/13/18 08:46; Admin Dose 100 MG; Start 08/12/18 at 21:00 Lactobacillus Acidophilus/ Rhamnosus (Culturelle) 1 cap BID PO Last administered on 08/13/18 08:46; Admin Dose 1 CAP; Start 08/12/18 at 21:00 Levothyroxine Sodium (Synthroid) 50 mcg BEFORE BREAKFAST PO Last administered on 08/13/18 06:42; Admin Dose 50 MCG; Start 08/13/18 at 07:00 Lidocaine (Lidoderm) 1 patch DAILY TRANSDERM Last administered on 08/13/18 08:48; Admin Dose 1 PATCH; Start 08/13/18 at 09:00 Nifedipine (Procardia Xl) 90 mg DAILY PO Last administered on 2/4/19at 08:46; Admin Dose 90 MG; Start 08/13/18 at 09:00 Oxcarbazepine (Trileptal) 300 mg BID PO Last administered on 08/13/18 08:46; Admin Dose 300 MG; Start 08/12/18 at 21:00 Pantoprazole (Protonix Tab) 40 mg BID@0600,1800 PO Last administered on 08/13/18at 17:32; Admin Dose 40 MG; Start 08/12/18 at 18:00 Risperidone (Risperdal) 0.25 mg BID PO Last administered on 08/13/18at 08:46; Admin Dose 0.25 MG; Start 08/12/18 at 21:00 Ibuprofen (Motrin) 600 mg Q6H PRN PO MILD PAIN LEVEL 1-3 Last administered on 08/13/18at 01:08; Admin Dose 600 MG; Start 08/13/18 at 01:00 FELIX FERNANDES NP Aug 13, 2018 18:00
[2018-08-13] MEDS: SENNA/DOCUSATE NA (8.6MG/50MG) TAB PO SCH (20:41)
[2018-08-14] VITALS (11 sets, daily range): BP systolic 90–126; BP diastolic 49–62; PULSE 96–117; RESP 16–20
[2018-08-14] MEDS: PANTOPRAZOLE (EC) 40 MG TAB PO SCH ×2 (05:19→18:01)
[2018-08-14] MEDS: HYDROCODONE/APAP (5/325) TAB PO PRN (05:19)
[2018-08-14] MEDS: LEVOTHYROXINE 50 MCG TAB PO SCH (06:09)
[2018-08-14] MEDS: OXCARBAZEPINE 300 MG TAB PO SCH ×2 (08:53→20:03)
[2018-08-14] MEDS: RISPERIDONE 0.25 MG TAB PO SCH ×2 (08:53→20:04)
[2018-08-14] MEDS: LACTOBACILLUS RHAMNOSUS CAP PO SCH ×2 (08:53→21:00)
[2018-08-14] MEDS: ONDANSETRON 4 MG INJ IV PRN (08:54)
[2018-08-14] MEDS: FAMOTIDINE 20 MG INJ IV SCH (08:57)
[2018-08-14] MEDS: LACOSAMIDE (100 MG/10 ML PO SYR) PO SCH ×2 (08:58→20:04)
[2018-08-14] MEDS: NIFEdipine (XL) 90 MG TAB PO SCH (09:00)
[2018-08-14] MEDS: ENOXAPARIN 40 MG/0.4 ML SYG SC SCH (09:08)
[2018-08-14] MEDS: LIDOCAINE 5% PATCH TRANSDERM SCH (09:55)
[2018-08-14] MEDS: DICLOFENAC SODIUM 1% GEL 100 GM TUBE TP SCH ×4 (09:55→20:04)
--- NOTE | 2018-08-14 10:57 | PN ---
Date/Time of Note Date/Time of Note DATE: 08/14/18 TIME: 10:55 Assessment/Plan VTE Prophylaxis Risk score (from Ns)>0 risk: 6 SCD applied (from Ns): No SCD contraindicated: other Pharmacological prophylaxis: LMWH [facility] Central line still needed: Yes Urinary Cath still in place: Yes Reason Cath still needed: other (indicate) Assessment/Plan Hospital Course SUBJECTIVE: Complains of B/L LE pain. OBJECTIVE: Physical Exam general: Adequately build 53 year-old female lying in bed in no apparent distress. HEENT: Normocephalic, atraumatic. Eyes: Anicteric sclerae, conjunctivae clear. ENT: Nasal septum midline, oral mucosa moist. Neck supple. Respiratory: Bilaterally clear breath sounds. No use of accessory muscles of respiration. No adventitious breath sounds. Cardiovascular: S1, S2 heard. Regular rate and rhythm. Abdomen: Soft and nondistended. Left upper quadrant tenderness. Bowel sounds positive in all 4 quadrants. Genitourinary: Deferred. Extremities: No cyanosis, no clubbing, no edema. Peripheral pulses palpable. Neurologic: The patient is awake and alert. Oriented to self. Flat affect. Skin: Normal skin turgor. No skin rashes. Labs & Vitals per chart ASSESSMENT & PLAN 53-year-old female with comorbidities including hypertension, dyslipidemia, hypothyroidism, chronic kidney disease, GERD, CVA, and chronic pelvic fracture and chronic sub-capital left femoral fracture. The patient was recently discharged from [facility] on 08/10/2018 when she had a E. coli ESBL urinary tract infection. The patient returned back to the emergency room at [facility] on 08/12/2018 because of fevers and bilateral lower extremity edema. The patient was noticed to have leukocytosis with a WBC of 37,000 and febrile illne ss with underlying tachycardia. Therefore, the patient was admitted to inpatient setting for further treatment and evaluation. 1. Sepsis with leukocytosis, febrile illness, bandemia, and tachycardia, present on admission. -Etiology unclear. -Status post antimicrobials. -Currently off antimicrobials since cultures are negative. -Being followed by infectious diseases. 2. Persistent leukocytosis -Etiology unclear. -The patient be monitored off antimicrobials. 3. Chronic kidney disease. -Continue to monitor BUN and creatinine closely. 4. Seizure disorder. -Continue Vimpat. 5. 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 -Continue conservative management. 6. Essential hypertension. -Continue antihypertensives. 7. GERD. -Continue PPI. 8. Chronic encephalopathy. -Status post evaluation by neurology on her previous visit. -Refused lumbar puncture. 9. Dyslipidemia. -Continue statins. 10. Normocytic, normochromic anemia. -Monitor H&H closely. 11. Fluids, electrolytes, and nutrition. -Low-cholesterol diet. 12. DVT prophylaxis. -Subcutaneous Lovenox (renal dose). Will hold this if the patient has worsening H&H on repeat labs. 13. Plan. -Monitor leukocytosis. -Await clinical improvement. -Repeat labs including BMP and CBC (possible lab error). The patient was seen in collaboration with Dr. Olson Result Diagram: 08/14/18 0850 08/14/18 0850 Results 24hrs Laboratory Tests Test 08/14/18 08:50 White Blood Count 26.7 #H Red Blood Count 2.11 #L Hemoglobin 6.6 #*L Hematocrit 20.7 #L Mean Corpuscular Volume 98.1 Mean Corpuscular Hemoglobin 31.3 Mean Corpuscular Hemoglobin Concent 31.9 L Red Cell Distribution Width 17.2 H Platelet Count 189 # Mean Platelet Volume 9.6 Immature Granulocytes % 7.600 H Neutrophils % Segmented Neutrophils % (Manual) 80 H Band Neutrophils % (Manual) 14 H Lymphocytes % Lymphocytes % (Manual) 5 L Monocytes % Monocytes % (Manual) 1 Eosinophils % Basophils % Nucleated Red Blood Cells % 0.0 Immature Granulocytes # 2.040 H Neutrophils # Neutrophils # (Manual) 22.3 H Band Neutrophils # 3.7 H Lymphocytes (Manual) 1.3 Lymphocytes # Monocytes # Monocytes # (Manual) 0.2 L Eosinophils # Basophils # Nucleated Red Blood Cells # Platelet Estimate NORMAL Polychromasia 3+ Poikilocytosis 3+ Anisocytosis 1+ Sodium Level 142 Potassium Level 3.4 L Chloride Level 123 H Carbon Dioxide Level 11 L Anion Gap 8 Blood Urea Nitrogen 21 H Creatinine 1.93 H Est Glomerular Filtrat Rate mL/min 27 L Glucose Level 56 #L Calcium Level 6.9 L Phosphorus Level 4.1 Magnesium Level 0.8 *L Exam/Review of Systems Exam Vitals Vital Signs Date Temp Pulse Resp B/P (MAP) Pulse Ox O2 O2 Flow FiO2 Time Delivery Rate 08/14/18 111 08:01 08/14/18 98.0 18 96/52 (67) 96 Room Air 07:17 Intake and Output 08/13/18 08/13/18 08/14/18 1515:00 23:00 07:00 IntakeIntake Total 850 ml 250 ml OutputOutput Total 650 ml 400 ml BalanceBalance 200 ml -150 ml Results Results 24hrs Laboratory Tests Test 08/14/18 08:50 White Blood Count 26.7 #H Red Blood Count 2.11 #L Hemoglobin 6.6 #*L Hematocrit 20.7 #L Mean Corpuscular Volume 98.1 Mean Corpuscular Hemoglobin 31.3 Mean Corpuscular Hemoglobin Concent 31.9 L Red Cell Distribution Width 17.2 H Platelet Count 189 # Mean Platelet Volume 9.6 Immature Granulocytes % 7.600 H Neutrophils % Segmented Neutrophils % (Manual) 80 H Band Neutrophils % (Manual) 14 H Lymphocytes % Lymphocytes % (Manual) 5 L Monocytes % Monocytes % (Manual) 1 Eosinophils % Basophils % Nucleated Red Blood Cells % 0.0 Immature Granulocytes # 2.040 H Neutrophils # Neutrophils # (Manual) 22.3 H Band Neutrophils # 3.7 H Lymphocytes (Manual) 1.3 Lymphocytes # Monocytes # Monocytes # (Manual) 0.2 L Eosinophils # Basophils # Nucleated Red Blood Cells # Platelet Estimate NORMAL Polychromasia 3+ Poikilocytosis 3+ Anisocytosis 1+ Sodium Level 142 Potassium Level 3.4 L Chloride Level 123 H Carbon Dioxide Level 11 L Anion Gap 8 Blood Urea Nitrogen 21 H Creatinine 1.93 H Est Glomerular Filtrat Rate mL/min 27 L Glucose Level 56 #L Calcium Level 6.9 L Phosphorus Level 4.1 Magnesium Level 0.8 *L Medications Medication Current Medications Sodium Chloride 1,000 ml @ 50 mls/hr Q20H IV Last administered on 08/13/18at 16 :02; Admin Dose 50 MLS/HR; Start 08/12/18 at 13:16 IV Flush (NS 3 ml) 3 ml PER PROTOCOL IV ; Start 08/12/18 at 13:30 Ondansetron HCl (Zofran Inj) 4 mg Q6H PRN IV NAUSEA/VOMITING Last administered on 08/14/18at 08:54; Admin Dose 4 MG; Start 08/12/18 at 13:30 Acetaminophen (Tylenol Tab) 650 mg Q6H PRN PO .PAIN 1-3 OR TEMP Last administered on 08/12/18 23:20; Admin Dose 650 MG; Start 08/12/18 at 13:30 Acetaminophen (Tylenol Supp) 650 mg Q6H PRN [place] .PAIN 1-3 OR TEMP; Start 08/12/18 at 13:30 Acetaminophen/ Hydrocodone Bitart ([place] (5/325)) 1 tab Q6H PRN PO .MOD PAIN 4- 6 Last administered on 08/14/18 05:19; Admin Dose 1 TAB; Start 08/12/18 at 13:30 Morphine Sulfate (morphine) 2 mg Q4H PRN IV .SEVERE PAIN 7-10 Last administered on 08/13/18 16:06; Admin Dose 2 MG; Start 08/12/18 at 13:30 Clonidine HCl (Catapres-Tts 1 Patch) 1 patch Q7D TRANSDERM Last administered on 08/12/18 17:54; Admin Dose 1 PATCH; Start 08/12/18 at 17:00 Famotidine (Pepcid Iv) 20 mg DAILY IV Last administered on 08/14/18 08:57; Admin Dose 20 MG; Start 08/13/18 at 09:00 Enoxaparin Sodium (Lovenox) 40 mg DAILY SC Last administered on 08/14/18 09:08; Admin Dose 40 MG; Start 08/13/18 at 09:00 Senna/Docusate Sodium (Senokot-S) 2 tab HS PO Last administered on 08/13/18 20:41; Admin Dose 2 TAB; Start 08/12/18 at 21:00 Diclofenac Sodium (Voltaren 1% Gel) 2 gm QID TP Last administered on 08/14/18 09:55; Admin Dose 2 GM; Start 08/12/18 at 17:00 Lacosamide (Vimpat Liq) 100 mg BID PO Last administered on 08/14/18 08:58; Admin Dose 100 MG; Start 08/12/18 at 21:00 Lactobacillus Acidophilus/ Rhamnosus (Culturelle) 1 cap BID PO Last administered on 08/14/18 08:53; Admin Dose 1 CAP; Start 08/12/18 at 21:00 Levothyroxine Sodium (Synthroid) 50 mcg BEFORE BREAKFAST PO Last administered on 08/14/18 06:09; Admin Dose 50 MCG; Start 08/13/18 at 07:00 Lidocaine (Lidoderm) 1 patch DAILY TRANSDERM Last administered on 08/14/18 09:55; Admin Dose 1 PATCH; Start 08/13/18 at 09:00 Nifedipine (Procardia Xl) 90 mg DAILY PO Last administered on 08/13/18 08:46; Admin Dose 90 MG; Start 08/13/18 at 09:00 Oxcarbazepine (Trileptal) 300 mg BID PO Last administered on 08/14/18 08:53; Admin Dose 300 MG; Start 08/12/18 at 21:00 Pantoprazole (Protonix Tab) 40 mg BID@0600,1800 PO Last administered on 08/14/18 05:19; Admin Dose 40 MG; Start 08/12/18 at 18:00 Risperidone (Risperdal) 0.25 mg BID PO Last administered on 08/14/18 08:53; Admin Dose 0.25 MG; Start 08/12/18 at 21:00 Ibuprofen (Motrin) 600 mg Q6H PRN PO MILD PAIN LEVEL 1-3 Last administered on 08/13/18 01:08; Admin Dose 600 MG; Start 08/13/18 at 01:00 Alteplase, Recombinant (Cathflo (Activase)) 2 mg MAY REPEAT X1 PRN CATHETER IF CATHETER REMAINS OCCULUDED; Start 08/14/18 at 11:00; Stop 08/14/18 at 17:00 FELIX FERNANDES NP Aug 14, 2018 10:57
[2018-08-14] MEDS ORDERED: ALTEPLASE (CATHFLO) 2 MG INJ CATHETER PRN (11:00)
[2018-08-14] MEDS ORDERED: POTASSIUM CHLORIDE (SR) 20 MEQ TAB PO STA (12:30)
[2018-08-14] MEDS ORDERED: SOD CHLORIDE 0.9% 250 ML IV* ONE (12:30)
[2018-08-14] MEDS ORDERED: MAGNESIUM SULFATE 4 GM/100 ML 100 ML IVPB ONE (13:00)
--- NOTE | 2018-08-14 14:45 | CONS ---
Assessment/Plan Assessment/Plan Hospital Course (Demo Recall) All noted, pt is awake, looks comfortable, with sluggish responses, no fevers Antimicrobials: Vanco Cefepime Microbiology: all cx's negative Physical examination: Well-nourished well-developed ill-appearing middle-aged woman in no distress. Head atraumatic normocephalic sclera nonicteric, neck is supple, chest rise symmetrical, breath sounds diminished bases, heart S1-S2, abdomen soft, bowel sounds present, extremities without cyanosis Assessment: 1. Sepsis ?etiology, poss urinary retention 2. Acute encephalopathy, resolving 3. S/p E coli ESBL UTI 4. History of CVA 5. Hypertension 6. Seizure disorder 7. Acute possibly on chronic kidney disease Plan: Clinically stable, continue abx, will order WBC scan Consultation Date/Type/Reason Admit Date/Time Aug 12, 2018 at 12:45 Initial Consult Date Type of Consult id Date/Time of Note DATE: 08/14/18 TIME: 14:41 Exam/Review of Systems Exam Vitals Vital Signs Date Temp Pulse Resp B/P (MAP) Pulse Ox O2 O2 Flow FiO2 Time Delivery Rate 08/14/18 103 12:01 08/14/18 98.1 18 112/59 100 Room Air 11:35 (76) Intake and Output 08/13/18 08/13/18 08/14/18 1515:00 23:00 07:00 IntakeIntake Total 850 ml 250 ml OutputOutput Total 650 ml 400 ml BalanceBalance 200 ml -150 ml Results Result Diagram: 08/14/18 1140 08/14/18 1140 Results 24hrs Laboratory Tests Test 08/14/18 08:50 08/14/18 11:40 White Blood Count 26.7 #H Red Blood Count 2.11 #L Hemoglobin 6.6 #*L 7.2 L Hematocrit 20.7 #L 22.5 L Mean Corpuscular Volume 98.1 Mean Corpuscular Hemoglobin 31.3 Mean Corpuscular Hemoglobin Concent 31.9 L Red Cell Distribution Width 17.2 H Platelet Count 189 # Mean Platelet Volume 9.6 Immature Granulocytes % 7.600 H Neutrophils % Segmented Neutrophils % (Manual) 80 H Band Neutrophils % (Manual) 14 H Lymphocytes % Lymphocytes % (Manual) 5 L Monocytes % Monocytes % (Manual) 1 Eosinophils % Basophils % Nucleated Red Blood Cells % 0.0 Immature Granulocytes # 2.040 H Neutrophils # Neutrophils # (Manual) 22.3 H Band Neutrophils # 3.7 H Lymphocytes (Manual) 1.3 Lymphocytes # Monocytes # Monocytes # (Manual) 0.2 L Eosinophils # Basophils # Nucleated Red Blood Cells # Platelet Estimate NORMAL Polychromasia 3+ Poikilocytosis 3+ Anisocytosis 1+ Sodium Level 142 142 Potassium Level 3.4 L 3.3 L Chloride Level 123 H 119 H Carbon Dioxide Level 11 L 12 L Anion Gap 8 11 Blood Urea Nitrogen 21 H 21 H Creatinine 1.93 H 1.93 H Est Glomerular Filtrat Rate mL/min 27 L 27 L Glucose Level 56 #L 77 Calcium Level 6.9 L 7.2 L Phosphorus Level 4.1 Magnesium Level 0.8 *L 0.9 *L Medications Medication Current Medications Sodium Chloride 1,000 ml @ 50 mls/hr Q20H IV Last administered on 08/13/18 16:02; Admin Dose 50 MLS/HR; Start 08/12/18 at 13:16 IV Flush (NS 3 ml) 3 ml PER PROTOCOL IV ; Start 08/12/18 at 13:30 Ondansetron HCl (Zofran Inj) 4 mg Q6H PRN IV NAUSEA/VOMITING Last administered on 08/14/18 08:54; Admin Dose 4 MG; Start 08/12/18 at 13:30 Acetaminophen (Tylenol Tab) 650 mg Q6H PRN PO .PAIN 1-3 OR TEMP Last administered on 08/12/18 23:20; Admin Dose 650 MG; Start 08/12/18 at 13:30 Acetaminophen (Tylenol Supp) 650 mg Q6H PRN [place] .PAIN 1-3 OR TEMP; Start 08/12/18 at 13:30 Acetaminophen/ Hydrocodone Bitart ([place] (5/325)) 1 tab Q6H PRN PO .MOD PAIN 4- 6 Last administered on 08/14/18 05:19; Admin Dose 1 TAB; Start 08/12/18 at 13:30 Morphine Sulfate (morphine) 2 mg Q4H PRN IV .SEVERE PAIN 7-10 Last administered on 08/13/18 16:06; Admin Dose 2 MG; Start 08/12/18 at 13:30 Clonidine HCl (Catapres-Tts 1 Patch) 1 patch Q7D TRANSDERM Last administered on 08/12/18 17:54; Admin Dose 1 PATCH; Start 08/12/18 at 17:00 Famotidine (Pepcid Iv) 20 mg DAILY IV Last administered on 08/14/18 08:57; Admin Dose 20 MG; Start 08/13/18 at 09:00 Enoxaparin Sodium (Lovenox) 40 mg DAILY SC Last administered on 08/14/18 09:08; Admin Dose 40 MG; Start 08/13/18 at 09:00 Senna/Docusate Sodium (Senokot-S) 2 tab HS PO Last administered on 08/13/18 20:41; Admin Dose 2 TAB; Start 08/12/18 at 21:00 Diclofenac Sodium (Voltaren 1% Gel) 2 gm QID TP Last administered on 08/14/18 13:16; Admin Dose 2 GM; Start 08/12/18 at 17:00 Lacosamide (Vimpat Liq) 100 mg BID PO Last administered on 08/14/18 08:58; Adm in Dose 100 MG; Start 08/12/18 at 21:00 Lactobacillus Acidophilus/ Rhamnosus (Culturelle) 1 cap BID PO Last administered on 08/14/18 08:53; Admin Dose 1 CAP; Start 08/12/18 at 21:00 Levothyroxine Sodium (Synthroid) 50 mcg BEFORE BREAKFAST PO Last administered on 08/14/18 06:09; Admin Dose 50 MCG; Start 08/13/18 at 07:00 Lidocaine (Lidoderm) 1 patch DAILY TRANSDERM Last administered on 08/14/18 09 :55; Admin Dose 1 PATCH; Start 08/13/18 at 09:00 Nifedipine (Procardia Xl) 90 mg DAILY PO Last administered on 08/13/18 08:46; Admin Dose 90 MG; Start 08/13/18 at 09:00 Oxcarbazepine (Trileptal) 300 mg BID PO Last administered on 08/14/18 08:53; Admin Dose 300 MG; Start 08/12/18 at 21:00 Pantoprazole (Protonix Tab) 40 mg BID@0600,1800 PO Last administered on 08/14/18 05:19; Admin Dose 40 MG; Start 08/12/18 at 18:00 Risperidone (Risperdal) 0.25 mg BID PO Last administered on 08/14/18at 08:53; Admin Dose 0.25 MG; Start 08/12/18 at 21:00 Ibuprofen (Motrin) 600 mg Q6H PRN PO MILD PAIN LEVEL 1-3 Last administered on 08/13/18at 01:08; Admin Dose 600 MG; Start 08/13/18 at 01:00 Alteplase, Recombinant (Cathflo (Activase)) 2 mg MAY REPEAT X1 PRN CATHETER IF CATHETER REMAINS OCCULUDED Last administered on 08/14/18at 10:55; Admin Dose 2 MG; Start 08/14/18 at 11:00; Stop 08/14/18 at 17:00 Magnesium Sulfate 100 ml @ 25 mls/hr ONCE ONCE IVPB ; Start 08/14/18 at 13:00; Stop 08/14/18 at 16:59 CAILIN ROBBINS NP Aug 14, 2018 14:45
[2018-08-14] MEDS ORDERED: VANCOMYCIN IV PER PHARMACY XX SCH (15:00)
[2018-08-14] MEDS ORDERED: VANCOMYCIN 1 GM 250 ML IVPB SCH ×2 (16:30→20:00)
[2018-08-14] MEDS ORDERED: CEFEPIME 1GM/50 ML (PMX) 50 ML IVPB SCH (16:30)
[2018-08-14] MEDS: SENNA/DOCUSATE NA (8.6MG/50MG) TAB PO SCH (20:04)
[2018-08-14] MEDS ORDERED: VANCOMYCIN 1 GM (PMX) 250 ML IVPB SCH (20:30)
[2018-08-14] MEDS: CEFEPIME 1GM/50 ML (PMX) 50 ML IVPB SCH (22:06)
[2018-08-14] MEDS: SOD CHLORIDE 0.9% 1,000 ML IV SCH (23:16)
[2018-08-15 01:28] VITALS: BP 109/51; PULSE 101; RESP 16
[2018-08-15] MEDS: PANTOPRAZOLE (EC) 40 MG TAB PO SCH ×2 (06:27→18:23)
[2018-08-15] MEDS: LEVOTHYROXINE 50 MCG TAB PO SCH (06:27)
[2018-08-15] MEDS: morphine 4 MG/ML VIAL IV PRN (06:52)
[2018-08-15 08:00] VITALS: BP 119/57; PULSE 88; RESP 18
[2018-08-15] MEDS: OXCARBAZEPINE 300 MG TAB PO SCH ×2 (09:52→21:31)
[2018-08-15] MEDS: LACOSAMIDE (100 MG/10 ML PO SYR) PO SCH ×2 (09:53→21:31)
[2018-08-15] MEDS: LACTOBACILLUS RHAMNOSUS CAP PO SCH ×2 (09:53→21:31)
[2018-08-15] MEDS: NIFEdipine (XL) 90 MG TAB PO SCH (09:53)
[2018-08-15] MEDS: FAMOTIDINE 20 MG INJ IV SCH (09:53)
[2018-08-15] MEDS: RISPERIDONE 0.25 MG TAB PO SCH ×2 (09:54→21:31)
[2018-08-15] MEDS: DICLOFENAC SODIUM 1% GEL 100 GM TUBE TP SCH ×4 (09:55→21:32)
[2018-08-15] MEDS: ENOXAPARIN 40 MG/0.4 ML SYG SC SCH (09:58)
[2018-08-15] MEDS: LIDOCAINE 5% PATCH TRANSDERM SCH (10:09)
--- NOTE | 2018-08-15 13:15 | CONS ---
Assessment/Plan Assessment/Plan Hospital Course (Demo Recall) All noted, no acute events, looks comfortable, no fevers Antimicrobials: Vanco Cefepime Microbiology: all cx's negative Physical examination: Well-nourished well-developed ill-appearing middle-aged woman in no distress. Head atraumatic normocephalic sclera nonicteric, neck is supple, chest rise symmetrical, breath sounds diminished bases, heart S1-S2, abdomen soft, bowel sounds present, extremities without cyanosis Assessment: 1. Sepsis ?etiology, poss urinary retention 2. Acute encephalopathy, resolving 3. S/p E coli ESBL UTI 4. History of CVA 5. Hypertension 6. Seizure disorder 7. Acute possibly on chronic kidney disease Plan: Clinically stable, wbc continues to decrease, continue abx, pending WBC scan Consultation Date/Type/Reason Admit Date/Time Aug 12, 2018 at 12:45 Initial Consult Date Type of Consult id Date/Time of Note DATE: 08/15/18 TIME: 13:14 Exam/Review of Systems Exam Vitals Vital Signs Date Temp Pulse Resp B/P (MAP) Pulse Ox O2 O2 Flow FiO2 Time Delivery Rate 08/15/18 98.2 88 18 119/57 98 Room Air 08:00 (77) Intake and Output 08/14/18 08/14/18 08/15/18 1515:00 23:00 07:00 IntakeIntake Total 600 ml 300 ml 450 ml OutputOutput Total 550 ml 1500 ml BalanceBalance 600 ml -250 ml -1050 ml Results Result Diagram: 08/15/18 0555 08/15/18 0555 Results 24hrs Laboratory Tests Test 08/15/18 05:55 08/15/18 07:20 White Blood Count 20.0 #H Red Blood Count 2.93 #L Hemoglobin 9.2 #L Hematocrit 28.9 #L Mean Corpuscular Volume 98.6 Mean Corpuscular Hemoglobin 31.4 Mean Corpuscular Hemoglobin Concent 31.8 L Red Cell Distribution Width 16.7 H Platelet Count 152 Mean Platelet Volume 9.4 Immature Granulocytes % 1.900 H Neutrophils % 85.6 H Lymphocytes % 6.8 L Monocytes % 5.1 Eosinophils % 0.3 Basophils % 0.3 Nucleated Red Blood Cells % 0.1 H Immature Granulocytes # 0.370 H Neutrophils # 17.1 H Lymphocytes # 1.4 Monocytes # 1.0 H Eosinophils # 0.1 Basophils # 0.1 Nucleated Red Blood Cells # 0.0 Sodium Level 142 Potassium Level 4.3 Chloride Level 123 H Carbon Dioxide Level 11 L Anion Gap 8 Blood Urea Nitrogen 15 Creatinine 1.53 H Est Glomerular Filtrat Rate mL/min 35 L Glucose Level 109 Calcium Level 7.8 L Phosphorus Level 3.4 Magnesium Level 2.6 #H Lab Scanned Report BLOOD TRANSFUSION Medications Medication Current Medications Sodium Chloride 1,000 ml @ 50 mls/hr Q20H IV Last administered on 08/14/18 23:16; Admin Dose 50 MLS/HR; Start 08/12/18 at 13:16 IV Flush (NS 3 ml) 3 ml PER PROTOCOL IV ; Start 08/12/18 at 13:30 Ondansetron HCl (Zofran Inj) 4 mg Q6H PRN IV NAUSEA/VOMITING Last administered on 08/14/18 08:54; Admin Dose 4 MG; Start 08/12/18 at 13:30 Acetaminophen (Tylenol Tab) 650 mg Q6H PRN PO .PAIN 1-3 OR TEMP Last administered on 08/12/18 23:20; Admin Dose 650 MG; Start 08/12/18 at 13:30 Acetaminophen (Tylenol Supp) 650 mg Q6H PRN [place] .PAIN 1-3 OR TEMP; Start 08/12/18 at 13:30 Acetaminophen/ Hydrocodone Bitart ([place] (5/325)) 1 tab Q6H PRN PO .MOD PAIN 4- 6 Last administered on 08/14/18 05:19; Admin Dose 1 TAB; Start 08/12/18 at 13:30 Morphine Sulfate (morphine) 2 mg Q4H PRN IV .SEVERE PAIN 7-10 Last administered on 08/15/18 06:52; Admin Dose 2 MG; Start 08/12/18 at 13:30 Clonidine HCl (Catapres-Tts 1 Patch) 1 patch Q7D TRANSDERM Last administered on 08/12/18 17:54; Admin Dose 1 PATCH; Start 08/12/18 at 17:00 Famotidine (Pepcid Iv) 20 mg DAILY IV Last administered on 08/15/18 09:53; Admin Dose 20 MG; Start 08/13/18 at 09:00 Enoxaparin Sodium (Lovenox) 40 mg DAILY SC Last administered on 08/15/18 09:58; Admin Dose 40 MG; Start 08/13/18 at 09:00 Senna/Docusate Sodium (Senokot-S) 2 tab HS PO Last administered on 08/14/18 20:04; Admin Dose 2 TAB; Start 08/12/18 at 21:00 Diclofenac Sodium (Voltaren 1% Gel) 2 gm QID TP Last administered on 08/15/18 09:55; Admin Dose 2 GM; Start 08/12/18 at 17:00 Lacosamide (Vimpat Liq) 100 mg BID PO Last administered on 08/15/18 09:53; Admin Dose 100 MG; Start 08/12/18 at 21:00 Lactobacillus Acidophilus/ Rhamnosus (Culturelle) 1 cap BID PO Last administered on 08/15/18 09:53; Admin Dose 1 CAP; Start 08/12/18 at 21:00 Levothyroxine Sodium (Synthroid) 50 mcg BEFORE BREAKFAST PO Last administered on 08/15/18 06:27; Admin Dose 50 MCG; Start 08/13/18 at 07:00 Lidocaine (Lidoderm) 1 patch DAILY TRANSDERM Last administered on 08/15/18 10:09; Admin Dose 1 PATCH; Start 08/13/18 at 09:00 Nifedipine (Procardia Xl) 90 mg DAILY PO Last administered on 08/15/18 09:53; Admin Dose 90 MG; Start 08/13/18 at 09:00 Oxcarbazepine (Trileptal) 300 mg BID PO Last administered on 08/15/18 09:52; Admin Dose 300 MG; Start 08/12/18 at 21:00 Pantoprazole (Protonix Tab) 40 mg BID@0600,1800 PO Last administered on 06:27; Admin Dose 40 MG; Start 08/12/18 at 18:00 Risperidone (Risperdal) 0.25 mg BID PO Last administered on 08/15/18 09:54; Admin Dose 0.25 MG; Start 08/12/18 at 21:00 Ibuprofen (Motrin) 600 mg Q6H PRN PO MILD PAIN LEVEL 1-3 Last administered on 08/13/18 01:08; Admin Dose 600 MG; Start 08/13/18 at 01:00 Vancomycin HCl (Vanco Iv Per Pharmacy) VANCOMYCIN PER PHARMACY PER PROTOCOL XX ; Start 08/14/18 at 15:00 Vancomycin HCl 100 ml @ 100 mls/hr Q24H IVPB ; Start 08/15/18 at 16:30 Cefepime HCl 50 ml @ 100 mls/hr Q24H IVPB Last administered on 08/14/18at 22:06; Admin Dose 100 MLS/HR; Start 08/14/18 at 20:00 Vancomycin HCl 250 ml @ 125 mls/hr ONCE@2200 IVPB ; Start 08/15/18 at 22:00; Stop 08/15/18 at 23:59 CAILIN ROBBINS NP Aug 15, 2018 13:15
--- NOTE | 2018-08-15 13:44 | PN ---
Date/Time of Note Date/Time of Note DATE: 08/15/18 TIME: 13:39 Assessment/Plan VTE Prophylaxis Risk score (from N[facility])>0 risk: 8 [place] [facility] [place] contraindicated: other Pharmacological prophylaxis: NA/contraindicated Pharm contraindication: anticoag not tolerated Lines/Catheters [facility] Mid Line Urinary Cath still in place: Yes Reason Cath still needed: urinary retention Assessment/Plan Hospital Course SUBJECTIVE: The patient was more confused on 08/14/2018 and pulled out her PICC line. OBJECTIVE: Physical Exam General: Adequately build 53 year-old female lying in bed in no apparent distress. HEENT: Normocephalic, atraumatic. Eyes: Anicteric sclerae, conjunctivae clear. ENT: Nasal septum midline, oral mucosa moist. Neck supple. Respiratory: Bilaterally clear breath sounds. No use of accessory muscles of respiration. No adventitious breath sounds. Cardiovascular: S1, S2 heard. Regular rate and rhythm. Abdomen: Soft and nondistended. Left upper quadrant tenderness. Bowel sounds positive in all 4 quadrants. Genitourinary: Deferred. Extremities: No cyanosis, no clubbing, no edema. Peripheral pulses palpable. Neurologic: The patient is awake and alert. Oriented to self. Flat affect. Skin: Normal skin turgor. No skin rashes. Labs & Vitals per chart ASSESSMENT & PLAN 53-year-old female with comorbidities including hypertension, dyslipidemia, hypothyroidism, chronic kidney disease, GERD, CVA, and chronic pelvic fracture and chronic sub-capital left femoral fracture. The patient was recently discharged from [facility] on 08/10/2018 when she had a E. coli ESBL urinary tract infection. The patient returned back to the emergency room at [facility] on 08/12/2018 because of fevers and bilateral lower extremity edema. The patient was noticed to have leukocytosis with a WBC of 37,000 and febrile illness with underlying tachycardia. Therefore, the patient was admitted to inpatient setting for further treatment and evaluation. 1. Sepsis with leukocytosis, febrile illness, bandemia, and tachycardia, present on admission. -Etiology unclear. -On antimicrobials. -Being followed by infectious diseases. 2. Chronic kidney disease. -Continue to monitor BUN and creatinine closely. 3. Seizure disorder. -Continue Vimpat. 4. 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 -Continue conservative management. -Status post evaluation by orthopedic surgery during her prior visit. 5. Essential hypertension. -Continue antihypertensives. 6. GERD. -Continue PPI. 7. Chronic encephalopathy. -Recent brain CT scan negative. -Neurology reconsulted. 8. Dyslipidemia. -Continue statins. 9. Normocytic, normochromic anemia. -Monitor H&H closely. -Status post 1 unit of PRBC transfusion on 08/14/2018. 10. Fluids, electrolytes, and nutrition. -Low-cholesterol diet. 11. DVT prophylaxis. -Subcutaneous Lovenox (on hold because of anemia) 12. Plan. -Monitor leukocytosis. -Await clinical improvement. -Await neurology evaluation. -Pending WBC scan. The patient was seen in collaboration with Dr. Olson. The patient's current status, the plan of care regarding the chronic fractures, and prognosis was explained to the patient's daughter over the phone on 08/14/2018. Result Diagram: 08/15/18 0555 08/15/18 0555 Results 24hrs Laboratory Tests Test 08/15/18 05:55 08/15/18 07:20 White Blood Count 20.0 #H Red Blood Count 2.93 #L Hemoglobin 9.2 #L Hematocrit 28.9 #L Mean Corpuscular Volume 98.6 Mean Corpuscular Hemoglobin 31.4 Mean Corpuscular Hemoglobin Concent 31.8 L Red Cell Distribution Width 16.7 H Platelet Count 152 Mean Platelet Volume 9.4 Immature Granulocytes % 1.900 H Neutrophils % 85.6 H Lymphocytes % 6.8 L Monocytes % 5.1 Eosinophils % 0.3 Basophils % 0.3 Nucleated Red Blood Cells % 0.1 H Immature Granulocytes # 0.370 H Neutrophils # 17.1 H Lymphocytes # 1.4 Monocytes # 1.0 H Eosinophils # 0.1 Basophils # 0.1 Nucleated Red Blood Cells # 0.0 Sodium Level 142 Potassium Level 4.3 Chloride Level 123 H Carbon Dioxide Level 11 L Anion Gap 8 Blood Urea Nitrogen 15 Creatinine 1.53 H Est Glomerular Filtrat Rate mL/min 35 L Glucose Level 109 Calcium Level 7.8 L Phosphorus Level 3.4 Magnesium Level 2.6 #H Lab Scanned Report BLOOD TRANSFUSION Exam/Review of Systems Exam Vitals Vital Signs Date Temp Pulse Resp B/P (MAP) Pulse Ox O2 O2 Flow FiO2 Time Delivery Rate 08/15/18 98.2 88 18 119/57 98 Room Air 08:00 (77) Intake and Output 08/14/18 08/14/18 08/15/18 1414:59 22:59 06:59 IntakeIntake Total 850 ml 200 ml 550 ml OutputOutput Total 400 ml 550 ml 1500 ml BalanceBalance 450 ml -350 ml -950 ml Results Results 24hrs Laboratory Tests Test 08/15/18 05:55 08/15/18 07:20 White Blood Count 20.0 #H Red Blood Count 2.93 #L Hemoglobin 9.2 #L Hematocrit 28.9 #L Mean Corpuscular Volume 98.6 Mean Corpuscular Hemoglobin 31.4 Mean Corpuscular Hemoglobin Concent 31.8 L Red Cell Distribution Width 16.7 H Platelet Count 152 Mean Platelet Volume 9.4 Immature Granulocytes % 1.900 H Neutrophils % 85.6 H Lymphocytes % 6.8 L Monocytes % 5.1 Eosinophils % 0.3 Basophils % 0.3 Nucleated Red Blood Cells % 0.1 H Immature Granulocytes # 0.370 H Neutrophils # 17.1 H Lymphocytes # 1.4 Monocytes # 1.0 H Eosinophils # 0.1 Basophils # 0.1 Nucleated Red Blood Cells # 0.0 Sodium Level 142 Potassium Level 4.3 Chloride Level 123 H Carbon Dioxide Level 11 L Anion Gap 8 Blood Urea Nitrogen 15 Creatinine 1.53 H Est Glomerular Filtrat Rate mL/min 35 L Glucose Level 109 Calcium Level 7.8 L Phosphorus Level 3.4 Magnesium Level 2.6 #H Lab Scanned Report BLOOD TRANSFUSION Medications Medication Current Medications Sodium Chloride 1,000 ml @ 50 mls/hr Q20H IV Last administered on 08/14/18at 23:16; Admin Dose 50 MLS/HR; Start 08/12/18 at 13:16 IV Flush (NS 3 ml) 3 ml PER PROTOCOL IV ; Start 08/12/18 at 13:30 Ondansetron HCl (Zofran Inj) 4 mg Q6H PRN IV NAUSEA/VOMITING Last administered on 08/14/18at 08:54; Admin Dose 4 MG; Start 08/12/18 at 13:30 Acetaminophen (Tylenol Tab) 650 mg Q6H PRN PO .PAIN 1-3 OR TEMP Last administered on 08/12/18at 23:20; Admin Dose 650 MG; Start 08/12/18 at 13:30 Acetaminophen (Tylenol Supp) 650 mg Q6H PRN [place] .PAIN 1-3 OR TEMP; Start 08/12/18 at 13:30 Acetaminophen/ Hydrocodone Bitart ([place] (5/325)) 1 tab Q6H PRN PO .MOD PAIN 4- 6 Last administered on 08/14/18 05:19; Admin Dose 1 TAB; Start 08/12/18 at 13:30 Morphine Sulfate (morphine) 2 mg Q4H PRN IV .SEVERE PAIN 7-10 Last administered on 08/15/18 06:52; Admin Dose 2 MG; Start 08/12/18 at 13:30 Clonidine HCl (Catapres-Tts 1 Patch) 1 patch Q7D TRANSDERM Last administered on 08/12/18 17:54; Admin Dose 1 PATCH; Start 08/12/18 at 17:00 Famotidine (Pepcid Iv) 20 mg DAILY IV Last administered on 08/15/18 09:53; Admin Dose 20 MG; Start 08/13/18 at 09:00 Enoxaparin Sodium (Lovenox) 40 mg DAILY SC Last administered on 08/15/18 09:58; Admin Dose 40 MG; Start 08/13/18 at 09:00 Senna/Docusate Sodium (Senokot-S) 2 tab HS PO Last administered on 08/14/18 20:04; Admin Dose 2 TAB; Start 08/12/18 at 21:00 Diclofenac Sodium (Voltaren 1% Gel) 2 gm QID TP Last administered on 08/15/18 09:55; Admin Dose 2 GM; Start 08/12/18 at 17:00 Lacosamide (Vimpat Liq) 100 mg BID PO Last administered on 08/15/18 09:53; Admin Dose 100 MG; Start 08/12/18 at 21:00 Lactobacillus Acidophilus/ Rhamnosus (Culturelle) 1 cap BID PO Last admi nistered on 08/15/18 09:53; Admin Dose 1 CAP; Start 08/12/18 at 21:00 Levothyroxine Sodium (Synthroid) 50 mcg BEFORE BREAKFAST PO Last administered on 08/15/18 06:27; Admin Dose 50 MCG; Start 08/13/18 at 07:00 Lidocaine (Lidoderm) 1 patch DAILY TRANSDERM Last administered on 08/15/18 10:09; Admin Dose 1 PATCH; Start 08/13/18 at 09:00 Nifedipine (Procardia Xl) 90 mg DAILY PO Last administered on 08/15/18 09:53; Admin Dose 90 MG; Start 08/13/18 at 09:00 Oxcarbazepine (Trileptal) 300 mg BID PO Last administered on 08/15/18 09:52; Admin Dose 300 MG; Start 08/12/18 at 21:00 Pantoprazole (Protonix Tab) 40 mg BID@0600,1800 PO Last administered on 08/15/18 06:27; Admin Dose 40 MG; Start 08/12/18 at 18:00 Risperidone (Risperdal) 0.25 mg BID PO Last administered on 08/15/18 09:54; Admin Dose 0.25 MG; Start 08/12/18 at 21:00 Ibuprofen (Motrin) 600 mg Q6H PRN PO MILD PAIN LEVEL 1-3 Last administered on 08/13/18 01:08; Admin Dose 600 MG; Start 08/13/18 at 01:00 Vancomycin HCl (Vanco Iv Per Pharmacy) VANCOMYCIN PER PHARMACY PER PROTOCOL XX ; Start 08/14/18 at 15:00 Vancomycin HCl 100 ml @ 100 mls/hr Q24H IVPB ; Start 08/15/18 at 16:30 Cefepime HCl 50 ml @ 100 mls/hr Q24H IVPB Last administered on 08/14/18at 22:06; Admin Dose 100 MLS/HR; Start 08/14/18 at 20:00 Vancomycin HCl 250 ml @ 125 mls/hr ONCE@2200 IVPB ; Start 08/15/18 at 22:00; Stop 08/15/18 at 23:59 FELIX FERNANDES NP Aug 15, 2018 13:44
[2018-08-15 14:00] VITALS: BP 142/64; PULSE 110; RESP 18
[2018-08-15] MEDS: BALSAM PERU/CASTOR OIL 60 GM TUBE TOP SCH ×2 (14:15→21:32)
--- NOTE | 2018-08-15 14:35 | CONS ---
Assessment/Plan Assessment/Plan Hospital Course 53 F c/ Hx of prior strokes c/b epilepsy...and other comorbidities...who reportedly presents for evaluation of ams. 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 The clinical picture suggests an acute toxic-metabolic encephalopathy.. Recurrent seizure is unlikely.. Recurrent stroke is unlikely.. Head CT is reassuringly without acute intracranial pathology. P: Start low dose asa for secondary stroke prevention when medically able Continued medical management per primary Continue Trileptal 300 mg bid for now; repeat trileptal level Continue Vimpat 100mg bid for now Reorient as necessary Limit sedating medications where possible PT/OT/ST as necessary Will follow clinically Consultation Date/Type/Reason Admit Date/Time Aug 12, 2018 at 12:45 Type of Consult Neurology Reason for Consultation ams Requesting Provider: FELIX FERNANDES NP Date/Time of Note DATE: 08/15/18 TIME: 14:20 Hx of Present Illness 53 F c/ prior Hx of adrenal insufficiency, prior strokes c/b epilepsy and other comorbidities, who presents for evaluation of ams. She is unable to contribute a Hx.. limited by ams Exam/Review of Systems Exam Vitals Vital Signs Date Temp Pulse Resp B/P (MAP) Pulse Ox O2 O2 Flow FiO2 Time Delivery Rate 08/15/18 98.2 88 18 119/57 98 Room Air 08:00 (77) Intake and Output 08/14/18 08/14/18 08/15/18 1515:00 23:00 07:00 IntakeIntake Total 600 ml 300 ml 450 ml OutputOutput Total 550 ml 1500 ml BalanceBalance 600 ml -250 ml -1050 ml Exam PE: Gen Appearance: No Apparent Distress HEENT: Normocephalic Cardiovascular: Regular rate Abdomen: Soft Extremities: Dry NE: The patient was lethargic and incomprehensibly verbal (hypophonic)... perseverative.. Cranial nerve examination was limited by mental status. Pupils were equal and reactive to light. There was no afferent pupillary defect. Funduscopic examination was limited. Face was grossly symmetric, w/ present corneal and cough reflexes. Tone was increased on the left. Muscle bulk was normal. I did not see fasciculations. Appreciably weak on the left... Coordination and gait testing was limited by mental status. Arm and leg reflexes were within normal limits and symmetric. Calloway's sign was absent. Plantar responses were flexor. Results Result Diagram: 08/15/18 0555 08/15/18 0555 Results 24hrs Laboratory Tests Test 08/15/18 05:55 08/15/18 07:20 White Blood Count 20.0 #H Red Blood Count 2.93 #L Hemoglobin 9.2 #L Hematocrit 28.9 #L Mean Corpuscular Volume 98.6 Mean Corpuscular Hemoglobin 31.4 Mean Corpuscular Hemoglobin Concent 31.8 L Red Cell Distribution Width 16.7 H Platelet Count 152 Mean Platelet Volume 9.4 Immature Granulocytes % 1.900 H Neutrophils % 85.6 H Lymphocytes % 6.8 L Monocytes % 5.1 Eosinophils % 0.3 Basophils % 0.3 Nucleated Red Blood Cells % 0.1 H Immature Granulocytes # 0.370 H Neutrophils # 17.1 H Lymphocytes # 1.4 Monocytes # 1.0 H Eosinophils # 0.1 Basophils # 0.1 Nucleated Red Blood Cells # 0.0 Sodium Level 142 Potassium Level 4.3 Chloride Level 123 H Carbon Dioxide Level 11 L Anion Gap 8 Blood Urea Nitrogen 15 Creatinine 1.53 H Est Glomerular Filtrat Rate mL/min 35 L Glucose Level 109 Calcium Level 7.8 L Phosphorus Level 3.4 Magnesium Level 2.6 #H Lab Scanned Report BLOOD TRANSFUSION Medications Medication Current Medications Sodium Chloride 1,000 ml @ 50 mls/hr Q20H IV Last administered on 08/14/18at 23:16; Admin Dose 50 MLS/HR; Start 08/12/18 at 13:16 IV Flush (NS 3 ml) 3 ml PER PROTOCOL IV ; Start 08/12/18 at 13:30 Ondansetron HCl (Zofran Inj) 4 mg Q6H PRN IV NAUSEA/VOMITING Last administered on 08/14/18at 08:54; Admin Dose 4 MG; Start 08/12/18 at 13:30 Acetaminophen (Tylenol Tab) 650 mg Q6H PRN PO .PAIN 1-3 OR TEMP Last administered on 08/12/18at 23:20; Admin Dose 650 MG; Start 08/12/18 at 13:30 Acetaminophen (Tylenol Supp) 650 mg Q6H PRN [place] .PAIN 1-3 OR TEMP; Start 08/12/18 at 13:30 Acetaminophen/ Hydrocodone Bitart ([place] (5/325)) 1 tab Q6H PRN PO .MOD PAIN 4- 6 Last administered on 08/14/18 05:19; Admin Dose 1 TAB; Start 08/12/18 at 13:30 Morphine Sulfate (morphine) 2 mg Q4H PRN IV .SEVERE PAIN 7-10 Last administered on 08/15/18 06:52; Admin Dose 2 MG; Start 08/12/18 at 13:30 Clonidine HCl (Catapres-Tts 1 Patch) 1 patch Q7D TRANSDERM Last administered on 08/12/18 17:54; Admin Dose 1 PATCH; Start 08/12/18 at 17:00 Famotidine (Pepcid Iv) 20 mg DAILY IV Last administered on 08/15/18 09:53; Admin Dose 20 MG; Start 08/13/18 at 09:00 Enoxaparin Sodium (Lovenox) 40 mg DAILY SC Last administered on 08/15/18 09:58; Admin Dose 40 MG; Start 08/13/18 at 09:00; Status Hold Senna/Docusate Sodium (Senokot-S) 2 tab HS PO Last administered on 08/14/18 20:04; Admin Dose 2 TAB; Start 08/12/18 at 21:00 Diclofenac Sodium (Voltaren 1% Gel) 2 gm QID TP Last administered on 08/15/18 14:18; Admin Dose 2 GM; Start 08/12/18 at 17:00 Lacosamide (Vimpat Liq) 100 mg BID PO Last administered on 08/15/18 09:53; Admin Dose 100 MG; Start 08/12/18 at 21:00 Lactobacillus Acidophilus/ Rhamnosus (Culturelle) 1 cap BID PO Last administered on 08/15/18 09:53; Admin Dose 1 CAP; Start 08/12/18 at 21:00 Levothyroxine Sodium (Synthroid) 50 mcg BEFORE BREAKFAST PO Last administered on 08/15/18 06:27; Admin Dose 50 MCG; Start 08/13/18 at 07:00 Lidocaine (Lidoderm) 1 patch DAILY TRANSDERM Last administered on 08/15/18 10:09; Admin Dose 1 PATCH; Start 08/13/18 at 09:00 Nifedipine (Procardia Xl) 90 mg DAILY PO Last administered on 08/15/18 09:53; Admin Dose 90 MG; Start 08/13/18 at 09:00 Oxcarbazepine (Trileptal) 300 mg BID PO Last administered on 08/15/18at 09:52; A dmin Dose 300 MG; Start 08/12/18 at 21:00 Pantoprazole (Protonix Tab) 40 mg BID@0600,1800 PO Last administered on 08/15/18at 06:27; Admin Dose 40 MG; Start 08/12/18 at 18:00 Risperidone (Risperdal) 0.25 mg BID PO Last administered on 08/15/18at 09:54; Admin Dose 0.25 MG; Start 08/12/18 at 21:00 Ibuprofen (Motrin) 600 mg Q6H PRN PO MILD PAIN LEVEL 1-3 Last administered on 08/13/18at 01:08; Admin Dose 600 MG; Start 08/13/18 at 01:00 Vancomycin HCl (Vanco Iv Per Pharmacy) VANCOMYCIN PER PHARMACY PER PROTOCOL XX ; Start 08/14/18 at 15:00 Vancomycin HCl 100 ml @ 100 mls/hr Q24H IVPB ; Start 08/15/18 at 16:30 Cefepime HCl 50 ml @ 100 mls/hr Q24H IVPB Last administered on 08/14/18at 22:06; Admin Dose 100 MLS/HR; Start 08/14/18 at 20:00 Vancomycin HCl 250 ml @ 125 mls/hr ONCE@2200 IVPB ; Start 08/15/18 at 22:00; Stop 08/15/18 at 23:59 Past Medical History reviewed Home Meds Active Scripts Levothyroxine Sodium* (Levothyroxine Sodium*) 50 Mcg Tablet, 50 MCG PO BEFORE BREAKFAST for 30 Days, #30 TAB Prov:ANALISA MOSS MD 08/10/18 Nifedipine (Procardia Xl) 90 Mg Tab.er.24, 90 MG PO DAILY for 10 Days, #10 TAB 1 Refill Prov:ANALISA MOSS MD 08/10/18 Metoprolol Tartrate* (Lopressor*) 50 Mg Tab, 50 MG PO BID for 10 Days, #20 TAB 1 Refill Prov:ANALISA MOSS MD 08/10/18 Ferrous Sulfate* (Ferrous Sulfate*) 325 Mg Tabec, 325 MG PO TID for 30 Days, #30 TAB 1 Refill Prov:ANALISA MOSS MD 08/10/18 Sennosides/Docusate Sodium (Dok Plus Tablet) 1 Each Tablet, 2 TAB PO HS for 7 Days, TAB Prov:ANALISA MOSS MD 08/09/18 Pantoprazole* (Pantoprazole*) 40 Mg Tablet.dr, 40 MG PO BID@0600,1800 for 10 Days Prov:ANALISA MOSS MD 08/09/18 Lactobacillus Rhamnosus GG (Culturelle) 1 Each Capsule, 1 CAP PO BID for 10 Days, CAP Prov:ANALISA MOSS MD 08/09/18 Risperidone* (Risperdal*) 0.25 Mg Tablet, 0.25 MG PO BID for 10 Days, TAB Prov:ANALISA MOSS MD 08/09/18 Lacosamide (Vimpat) 10 Mg/1 Ml Solution, 100 MG PO BID for 30 Days Prov:ANALISA MOSS MD 08/09/18 Oxcarbazepine* (Oxcarbazepine*) 300 Mg Tablet, 300 MG PO BID for 30 Days, TAB Prov:ANALISA MOSS MD 08/09/18 Docusate Sodium* (Colace*) 100 Mg Capsule, 100 MG PO TID, #30 CAP Prov:SARWAT CEDILLO 08/02/18 Reported Medications Sodium Bicarbonate* (Sodium Bicarbonate*) 650 Mg Tablet, 1950 MG PO TID, TAB 08/02/18 Ondansetron Hcl* (Zofran*) 4 Mg Tab, 4 MG PO Q6H PRN for NAUSEA AND OR VOMITING, TAB 08/02/18 Multivitamins* (Theragran*) 1 Tab Tab, 1 TAB PO DAILY, TAB 08/02/18 Lidocaine (Lidoderm) 1 Each Adh..patch, 1 EACH TP DAILY 08/02/18 Enoxaparin Sodium (Enoxaparin Sodium) 40 Mg/0.4 Ml Syringe, 40 MG SQ DAILY, SYR 08/02/18 Diclofenac Sodium* (Voltaren* Gel) 1% -100 Gm Gel, 2 GM TOP QID, #1 TUB 08/02/18 Clonidine Hcl* (Clonidine Hcl*) 0.1 Mg Tab, 0.1 MG PO BID PRN for ELEVATED BLOOD PRESSURE, TAB 08/02/18 Metoprolol Tartrate* (Lopressor*) 25 Mg Tab, 25 MG PO BID for HOLD IF BP <100 OR HR <55, #60 TAB 08/02/18 Loperamide Hcl* (Loperamide Hcl*) 2 Mg Cap, 2 MG PO QID PRN for DIARRHEA, CAP 08/02/18 Cholecalciferol* (Vitamin D3*) 1,000 Unit Tablet, 1000 UNIT PO DAILY, TAB 08/02/18 Nifedipine* (Nifedipine ER*) 60 Mg Tablet.sa, 60 MG PO DAILY, TAB.SA 08/02/18 Atorvastatin Calcium* (Atorvastatin Calcium*) 20 Mg Tablet, 40 MG PO DAILY, #30 TAB 08/02/18 Acetaminophen (Acetaminophen) 325 Mg Tablet, 650 MG PO Q6 PRN for PAIN, TAB 08/02/18 Discontinued Reported Medications Potassium Chloride* (Potassium Chloride*) 20 Meq Tablet.er, 20 MEQ PO BID, TAB.SA 08/02/18 Hydrocortisone* (Cortef*) 5 Mg Tab, 15 MG PO AT 9AM, #180 TAB 08/02/18 Hydrocortisone* (Cortef*) 5 Mg Tab, 10 MG PO QHS, #120 TAB 08/02/18 Hydrocortisone* (Cortef*) 5 Mg Tab, 5 MG PO AT 2PM, #60 TAB 08/02/18 Lacosamide (Vimpat) 200 Mg Tablet, 200 MG PO BID, TAB 08/02/18 Famotidine* (Famotidine*) 40 Mg Tablet, 40 MG PO BID, #60 TAB 08/02/18 Discontinued Scripts Hydrocortisone (Hydrocortisone) 5 Mg Tablet, 7.5 MG PO 1500 for 10 Days, TAB Prov:ANALISA MOSS MD 08/09/18 Hydrocortisone (Hydrocortisone) 5 Mg Tablet, 2.5 MG PO QHS for 10 Days, TAB Prov:ANALISA MOSS MD 08/09/18 Hydrocortisone (Hydrocortisone) 5 Mg Tablet, 12.5 MG PO AC BREAKFAST for 10 Days, TAB Prov:ANALISA MOSS MD 08/09/18 Levofloxacin* (Levaquin*) 500 Mg Tablet, 500 MG PO Q48H for 3 Days, TAB Prov:ANALISA MOSS MD 08/09/18 Ondansetron (Ondansetron Odt) 4 Mg Tab.rapdis, 4 MG PO Q6H PRN for NAUSEA AND/OR VOMITING, #10 TAB Prov:SARWAT CEDILLO 08/02/18 Tramadol HCl (Tramadol HCl) 50 Mg Tablet, 50 MG PO Q4 PRN for PAIN, #20 TAB Prov:SARWAT CEDILLO 08/02/18 Medications Current Medications Sodium Chloride 1,000 ml @ 50 mls/hr Q20H IV Last administered on 08/14/18 23:16; Admin Dose 50 MLS/HR; Start 08/12/18 at 13:16 IV Flush (NS 3 ml) 3 ml PER PROTOCOL IV ; Start 08/12/18 at 13:30 Ondansetron HCl (Zofran Inj) 4 mg Q6H PRN IV NAUSEA/VOMITING Last administered on 08/14/18 08:54; Admin Dose 4 MG; Start 08/12/18 at 13:30 Acetaminophen (Tylenol Tab) 650 mg Q6H PRN PO .PAIN 1-3 OR TEMP Last administered on 08/12/18 23:20; Admin Dose 650 MG; Start 08/12/18 at 13:30 Acetaminophen (Tylenol Supp) 650 mg Q6H PRN [place] .PAIN 1-3 OR TEMP; Start 08/12/18 at 13:30 Acetaminophen/ Hydrocodone Bitart ([place] (5/325)) 1 tab Q6H PRN PO .MOD PAIN 4- 6 Last administered on 08/14/18 05:19; Admin Dose 1 TAB; Start 08/12/18 at 13:30 Morphine Sulfate (morphine) 2 mg Q4H PRN IV .SEVERE PAIN 7-10 Last administered on 08/15/18 06:52; Admin Dose 2 MG; Start 08/12/18 at 13:30 Clonidine HCl (Catapres-Tts 1 Patch) 1 patch Q7D TRANSDERM Last administered on 08/12/18 17:54; Admin Dose 1 PATCH; Start 08/12/18 at 17:00 Famotidine (Pepcid Iv) 20 mg DAILY IV Last administered on 08/15/18 09:53; Admin Dose 20 MG; Start 08/13/18 at 09:00 Enoxaparin Sodium (Lovenox) 40 mg DAILY SC Last administered on 08/15/18 09:58; Admin Dose 40 MG; Start 08/13/18 at 09:00; Status Hold Senna/Docusate Sodium (Senokot-S) 2 tab HS PO Last administered on 08/14/18 20:04; Admin Dose 2 TAB; Start 08/12/18 at 21:00 Diclofenac Sodium (Voltaren 1% Gel) 2 gm QID TP Last administered on 08/15/18 14:18; Admin Dose 2 GM; Start 08/12/18 at 17:00 Lacosamide (Vimpat Liq) 100 mg BID PO Last administered on 08/15/18 09:53; Admin Dose 100 MG; Start 08/12/18 at 21:00 Lactobacillus Acidophilus/ Rhamnosus (Culturelle) 1 cap BID PO Last administered on 08/15/18 09:53; Admin Dose 1 CAP; Start 08/12/18 at 21:00 Levothyroxine Sodium (Synthroid) 50 mcg BEFORE BREAKFAST PO Last administered on 08/15/18 06:27; Admin Dose 50 MCG; Start 08/13/18 at 07:00 Lidocaine (Lidoderm) 1 patch DAILY TRANSDERM Last administered on 08/15/18 10:09; Admin Dose 1 PATCH; Start 08/13/18 at 09:00 Nifedipine (Procardia Xl) 90 mg DAILY PO Last administered on 08/15/18 09:53; Admin Dose 90 MG; Start 08/13/18 at 09:00 Oxcarbazepine (Trileptal) 300 mg BID PO Last administered on 08/15/18 09:52; Admin Dose 300 MG; Start 08/12/18 at 21:00 Pantoprazole (Protonix Tab) 40 mg BID@0600,1800 PO Last administered on 08/15/18 06:27; Admin Dose 40 MG; Start 08/12/18 at 18:00 Risperidone (Risperdal) 0.25 mg BID PO Last administered on 08/15/18 09:54; Admin Dose 0.25 MG; Start 08/12/18 at 21:00 Ibuprofen (Motrin) 600 mg Q6H PRN PO MILD PAIN LEVEL 1-3 Last administered on 08/13/18 01:08; Admin Dose 600 MG; Start 08/13/18 at 01:00 Vancomycin HCl (Vanco Iv Per Pharmacy) VANCOMYCIN PER PHARMACY PER PROTOCOL XX ; Start 08/14/18 at 15:00 Vancomycin HCl 100 ml @ 100 mls/hr Q24H IVPB ; Start 08/15/18 at 16:30 Cefepime HCl 50 ml @ 100 mls/hr Q24H IVPB Last administered on 08/14/18at 22:06; Admin Dose 100 MLS/HR; Start 08/14/18 at 20:00 Vancomycin HCl 250 ml @ 125 mls/hr ONCE@2200 IVPB ; Start 08/15/18 at 22:00; Stop 08/15/18 at 23:59 Allergies: Coded Allergies: No Known Allergy (Unverified , 08/12/18) Past Surgical History Past Surgical Hx: noncontributory Social History reviewed Smoking Status: Never smoker PATRIC LAWLER Aug 15, 2018 14:30
[2018-08-15 19:53] VITALS: BP 144/67; PULSE 108; RESP 20
[2018-08-15] MEDS: SOD CHLORIDE 0.9% 1,000 ML IV SCH (21:30)
[2018-08-15] MEDS: SENNA/DOCUSATE NA (8.6MG/50MG) TAB PO SCH (21:31)
[2018-08-15] MEDS: CEFEPIME 1GM/50 ML (PMX) 50 ML IVPB SCH (21:31)
[2018-08-15] MEDS ORDERED: VANCOMYCIN 1 GM 250 ML IVPB SCH (22:00)
[2018-08-16] MEDS: VANCOMYCIN 500 MG (PMX) 100 ML IVPB SCH (01:09)
[2018-08-16 02:30] VITALS: BP 112/59; RESP 18
[2018-08-16] MEDS: LEVOTHYROXINE 50 MCG TAB PO SCH (06:33)
[2018-08-16] MEDS: PANTOPRAZOLE (EC) 40 MG TAB PO SCH ×2 (06:33→17:10)
[2018-08-16] MEDS: HYDROCODONE/APAP (5/325) TAB PO PRN ×2 (07:34→18:10)
[2018-08-16 08:01] VITALS: BP 146/79; PULSE 97; RESP 18
[2018-08-16] MEDS: OXCARBAZEPINE 300 MG TAB PO SCH ×2 (08:32→20:40)
[2018-08-16] MEDS: RISPERIDONE 0.25 MG TAB PO SCH ×2 (08:32→20:39)
[2018-08-16] MEDS: LACOSAMIDE (100 MG/10 ML PO SYR) PO SCH ×2 (08:33→20:41)
[2018-08-16] MEDS: LACTOBACILLUS RHAMNOSUS CAP PO SCH ×2 (08:33→20:38)
[2018-08-16] MEDS: FAMOTIDINE 20 MG TAB PO SCH (08:33)
[2018-08-16] MEDS: NIFEdipine (XL) 90 MG TAB PO SCH (08:33)
[2018-08-16] MEDS: BALSAM PERU/CASTOR OIL 60 GM TUBE TOP SCH ×2 (08:34→20:46)
[2018-08-16] MEDS: DICLOFENAC SODIUM 1% GEL 100 GM TUBE TP SCH ×4 (08:34→20:46)
[2018-08-16] MEDS: LIDOCAINE 5% PATCH TRANSDERM SCH (08:34)
--- NOTE | 2018-08-16 11:45 | PN ---
Date/Time of Note Date/Time of Note DATE: 08/16/18 TIME: 11:44 Assessment/Plan VTE Prophylaxis Risk score (from Ns)>0 risk: 2 SCD applied (from [facility]): No SCD contraindicated: other Pharmacological prophylaxis: NA/contraindicated Pharm contraindication: anticoag not tolerated Lines/Catheters IV C[facility] Type [facility]from [facility] Mid Line Urinary Cath still in place: Yes Reason Cath still needed: urinary retention Assessment/Plan Hospital Course SUBJECTIVE: Patient is more calm and cooperative today. Remains afebrile. OBJECTIVE: Physical Exam General: Adequately build 53 year-old female lying in bed in no apparent distress. HEENT: Normocephalic, atraumatic. Eyes: Anicteric sclerae, conjunctivae clear. E NT: Nasal septum midline, oral mucosa moist. Neck supple. Respiratory: Bilaterally clear breath sounds. No use of accessory muscles of respiration. No adventitious breath sounds. Cardiovascular: S1, S2 heard. Regular rate and rhythm. Abdomen: Soft and nondistended. Left upper quadrant tenderness. Bowel sounds positive in all 4 quadrants. Genitourinary: Deferred. Extremities: No cyanosis, no clubbing, no edema. Peripheral pulses palpable. Neurologic: The patient is awake and alert. Oriented to self. Flat affect. Skin: Normal skin turgor. No skin rashes. Labs & Vitals per chart ASSESSMENT & PLAN 53-year-old female with comorbidities including hypertension, dyslipidemia, h ypothyroidism, chronic kidney disease, GERD, CVA, and chronic pelvic fracture and chronic sub-capital left femoral fracture. The patient was recently discharged from [facility] on 08/10/2018 when she had a E. coli ESBL urinary tract infection. The patient returned back to the emergency room at [facility] on 08/12/2018 because of fevers and bilateral lower extremity edema. The patient was noticed to have leukocytosis with a WBC of 37,000 and febrile illness with underlying tachycardia. Therefore, the patient was admitted to inpatient setting for further treatment and evaluation. 1. Sepsis with leukocytosis, febrile illness, bandemia, and tachycardia, present on admission. -Etiology unclear. -On antimicrobials. -Being followed by infectious diseases. 2. Chronic kidney disease. -Continue to monitor BUN and creatinine closely. 3. Seizure disorder. -Continue Vimpat. 4. 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 -Continue conservative management. -Status post evaluation by orthopedic surgery during her prior visit. 5. Essential hypertension. -Continue antihypertensives. 6. GERD. -Continue H2 receptor blockers.. 7. Chronic encephalopathy. -?Toxic metabolic. -Recent brain CT scan negative. -Neurology following. 8. Dyslipidemia. -Continue statins. 9. Normocytic, normochromic anemia. -Monitor H&H closely. -Status post 1 unit of PRBC transfusion on 08/14/2018. 10. Fluids, electrolytes, and nutrition. -Low-cholesterol diet. 11. DVT prophylaxis. -Subcutaneous Lovenox (on hold because of anemia) 12. Plan. -Monitor leukocytosis. -Await clinical improvement. -Pending WBC scan. The patient was seen in collaboration with Dr. Olson. The patient's current status, the plan of care regarding the chronic fractures, and prognosis was explained to the patient's daughter over the phone on 08/14/2018. Result Diagram: 08/16/18 0749 08/16/18 0749 Results 24hrs Laboratory Tests Test 08/16/18 07:49 White Blood Count 15.0 #H Red Blood Count 3.03 L Hemoglobin 9.5 L Hematocrit 28.8 L Mean Corpuscular Volume 95.0 Mean Corpuscular Hemoglobin 31.4 Mean Corpuscular Hemoglobin Concent 33.0 Red Cell Distribution Width 17.1 H Platelet Count 204 # Mean Platelet Volume 9.4 Immature Granulocytes % 0.700 H Neutrophils % Segmented Neutrophils % (Manual) 68 Band Neutrophils % (Manual) 6 H Lymphocytes % Lymphocytes % (Manual) 14 L Reactive Lymphocytes % (Manual) 5 H Monocytes % Monocytes % (Manual) 6 Eosinophils % Basophils % Basophils % (Manual) 1 Nucleated Red Blood Cells % 0.0 Immature Granulocytes # 0.100 H Neutrophils # Neutrophils # (Manual) 10.3 H Band Neutrophils # 0.9 H Lymphocytes (Manual) 2.1 Lymphocytes # Reactive Lymphocytes # 0.7 H Monocytes # Monocytes # (Manual) 0.9 Eosinophils # Basophils # Basophils # (Manual) 0.1 H Nucleated Red Blood Cells # Platelet Estimate NORMAL Giant Platelets 1 H Polychromasia 1+ Poikilocytosis 1+ Anisocytosis 1+ Microcytosis 1+ Sodium Level 140 Potassium Level 3.7 Chloride Level 118 H Carbon Dioxide Level 13 L Anion Gap 9 Blood Urea Nitrogen 10 Creatinine 1.18 H Est Glomerular Filtrat Rate mL/min 48 L Glucose Level 88 Calcium Level 8.2 L Phosphorus Level 3.5 Magnesium Level 1.9 Exam/Review of Systems Exam Vitals Vital Signs Date Temp Pulse Resp B/P (MAP) Pulse Ox O2 O2 Flow FiO2 Time Delivery Rate 08/16/18 98.1 97 18 146/79 99 Room Air 08:01 (101) Intake and Output 08/15/18 08/15/18 08/16/18 1414:59 22:59 06:59 IntakeIntake Total 240 ml 1020 ml OutputOutput Total 700 ml BalanceBalance -460 ml 1020 ml Results Results 24hrs Laboratory Tests Test 08/16/18 07:49 White Blood Count 15.0 #H Red Blood Count 3.03 L Hemoglobin 9.5 L Hematocrit 28.8 L Mean Corpuscular Volume 95.0 Mean Corpuscular Hemoglobin 31.4 Mean Corpuscular Hemoglobin Concent 33.0 Red Cell Distribution Width 17.1 H Platelet Count 204 # Mean Platelet Volume 9.4 Immature Granulocytes % 0.700 H Neutrophils % Segmented Neutrophils % (Manual) 68 Band Neutrophils % (Manual) 6 H Lymphocytes % Lymphocytes % (Manual) 14 L Reactive Lymphocytes % (Manual) 5 H Monocytes % Monocytes % (Manual) 6 Eosinophils % Basophils % Basophils % (Manual) 1 Nucleated Red Blood Cells % 0.0 Immature Granulocytes # 0.100 H Neutrophils # Neutrophils # (Manual) 10.3 H Band Neutrophils # 0.9 H Lymphocytes (Manual) 2.1 Lymphocytes # Reactive Lymphocytes # 0.7 H Monocytes # Monocytes # (Manual) 0.9 Eosinophils # Basophils # Basophils # (Manual) 0.1 H Nucleated Red Blood Cells # Platelet Estimate NORMAL Giant Platelets 1 H Polychromasia 1+ Poikilocytosis 1+ Anisocytosis 1+ Microcytosis 1+ Sodium Level 140 Potassium Level 3.7 Chloride Level 118 H Carbon Dioxide Level 13 L Anion Gap 9 Blood Urea Nitrogen 10 Creatinine 1.18 H Est Glomerular Filtrat Rate mL/min 48 L Glucose Level 88 Calcium Level 8.2 L Phosphorus Level 3.5 Magnesium Level 1.9 Medications Medication Current Medications Sodium Chloride 1,000 ml @ 50 mls/hr Q20H IV Last administered on 08/15/18at 21:30; Admin Dose 50 MLS/HR; Start 08/12/18 at 13:16 IV Flush (NS 3 ml) 3 ml PER PROTOCOL IV ; Start 08/12/18 at 13:30 Ondansetron HCl (Zofran Inj) 4 mg Q6H PRN IV NAUSEA/VOMITING Last administered on 08/14/18 08:54; Admin Dose 4 MG; Start 08/12/18 at 13:30 Acetaminophen (Tylenol Tab) 650 mg Q6H PRN PO .PAIN 1-3 OR TEMP Last administered on 08/12/18 23:20; Admin Dose 650 MG; Start 08/12/18 at 13:30 Acetaminophen (Tylenol Supp) 650 mg Q6H PRN [place] .PAIN 1-3 OR TEMP; Start 08/12/18 at 13:30 Acetaminophen/ Hydrocodone Bitart ([place] (5/325)) 1 tab Q6H PRN PO .MOD PAIN 4- 6 Last administered on 08/16/18 07:34; Admin Dose 1 TAB; Start 08/12/18 at 13:30 Clonidine HCl (Catapres-Tts 1 Patch) 1 patch Q7D TRANSDERM Last administered on 08/12/18 17:54; Admin Dose 1 PATCH; Start 08/12/18 at 17:00 Enoxaparin Sodium (Lovenox) 40 mg DAILY SC Last administered on 08/15/18 09:58; Admin Dose 40 MG; Start 08/13/18 at 09:00; Status Hold Senna/Docusate Sodium (Senokot-S) 2 tab HS PO Last administered on 08/15/18 21:31; Admin Dose 2 TAB; Start 08/12/18 at 21:00 Diclofenac Sodium (Voltaren 1% Gel) 2 gm QID TP Last administered on 08/16/18 08:34; Admin Dose 2 GM; Start 08/12/18 at 17:00 Lacosamide (Vimpat Liq) 100 mg BID PO Last administered on 08/16/18 08:33; Admin Dose 100 MG; Start 08/12/18 at 21:00 Lactobacillus Acidophilus/ Rhamnosus (Culturelle) 1 cap BID PO Last administered on 08/16/18 08:33; Admin Dose 1 CAP; Start 08/12/18 at 21:00 Levothyroxine Sodium (Synthroid) 50 mcg BEFORE BREAKFAST PO Last administered on 08/16/18 06:33; Admin Dose 50 MCG; Start 08/13/18 at 07:00 Lidocaine (Lidoderm) 1 patch DAILY TRANSDERM Last administered on 08/16/18 08:34; Admin Dose 1 PATCH; Start 08/13/18 at 09:00 Nifedipine (Procardia Xl) 90 mg DAILY PO Last administered on 08/16/18 08:33; Admin Dose 90 MG; Start 08/13/18 at 09:00 Oxcarbazepine (Trileptal) 300 mg BID PO Last administered on 08/16/18 08:32; Admin Dose 300 MG; Start 08/12/18 at 21:00 Pantoprazole (Protonix Tab) 40 mg BID@0600,1800 PO Last administered on 08/16/18 06:33; Admin Dose 40 MG; Start 08/12/18 at 18:00 Risperidone (Risperdal) 0.25 mg BID PO Last administered on 08/16/18 08:32; Admin Dose 0.25 MG; Start 08/12/18 at 21:00 Ibuprofen (Motrin) 600 mg Q6H PRN PO MILD PAIN LEVEL 1-3 Last administered on 08/13/18 01:08; Admin Dose 600 MG; Start 08/13/18 at 01:00 Vancomycin HCl (Vanco Iv Per Pharmacy) VANCOMYCIN PER PHARMACY PER PROTOCOL XX ; Start 08/14/18 at 15:00 Vancomycin HCl 100 ml @ 100 mls/hr Q24H IVPB Last administered on 08/16/18 01:09; Admin Dose 100 MLS/HR; Start 08/16/18 at 01:00 Cefepime HCl 50 ml @ 100 mls/hr Q24H IVPB Last administered on 08/15/18 21:31; Admin Dose 100 MLS/HR; Start 08/14/18 at 20:00 Morphine Sulfate (morphine) 6 mg Q4H PRN PO SEVERE PAIN LEVEL 7-10; Start 08/15/18 at 16:00 Famotidine (Pepcid) 20 mg DAILY PO Last administered on 08/16/18 08:33; Admin Dose 20 MG; Start 08/16/18 at 09:00 FELIX FERNANDES NP Aug 16, 2018 11:45
--- NOTE | 2018-08-16 13:47 | CONS ---
Assessment/Plan Assessment/Plan Hospital Course (Demo Recall) Clinically unchanged on and off confused. WBC today 15 bands 6 BUN 10 creatinine 1.18 Antimicrobials: Vanco Cefepime Microbiology: all cx's negative Physical examination: Well-nourished well-developed ill-appearing middle-aged woman in no distress. Head atraumatic normocephalic sclera nonicteric, neck is supple, chest rise symmetrical, breath sounds diminished bases, heart S1-S2, abdomen soft, bowel sounds present, extremities without cyanosis Assessment: 1. Sepsis ?etiology, poss urinary retention 2. Acute encephalopathy 3. S/p E coli ESBL UTI 4. History of CVA 5. Hypertension 6. Seizure disorder 7. Acute possibly on chronic kidney disease Plan: Clinically unchanged, wbc continues to decrease, continue abx, pending WBC scan Consultation Date/Type/Reason Admit Date/Time Aug 12, 2018 at 12:45 Initial Consult Date Type of Consult id Requesting Provider: FELIX FERNANDES NP Date/Time of Note DATE: 08/16/18 TIME: 13:47 Exam/Review of Systems Exam Vitals Vital Signs Date Temp Pulse Resp B/P (MAP) Pulse Ox O2 O2 Flow FiO2 Time Delivery Rate 08/16/18 98.1 97 18 146/79 99 Room Air 08:01 (101) Intake and Output 08/15/18 08/15/18 08/16/18 1515:00 23:00 07:00 IntakeIntake Total 240 ml 1020 ml OutputOutput Total 700 ml BalanceBalance -460 ml 1020 ml Results Result Diagram: 08/16/18 0749 08/16/18 0749 Results 24hrs Laboratory Tests Test 08/16/18 07:49 White Blood Count 15.0 #H Red Blood Count 3.03 L Hemoglobin 9.5 L Hematocrit 28.8 L Mean Corpuscular Volume 95.0 Mean Corpuscular Hemoglobin 31.4 Mean Corpuscular Hemoglobin Concent 33.0 Red Cell Distribution Width 17.1 H Platelet Count 204 # Mean Platelet Volume 9.4 Immature Granulocytes % 0.700 H Neutrophils % Segmented Neutrophils % (Manual) 68 Band Neutrophils % (Manual) 6 H Lymphocytes % Lymphocytes % (Manual) 14 L Reactive Lymphocytes % (Manual) 5 H Monocytes % Monocytes % (Manual) 6 Eosinophils % Basophils % Basophils % (Manual) 1 Nucleated Red Blood Cells % 0.0 Immature Granulocytes # 0.100 H Neutrophils # Neutrophils # (Manual) 10.3 H Band Neutrophils # 0.9 H Lymphocytes (Manual) 2.1 Lymphocytes # Reactive Lymphocytes # 0.7 H Monocytes # Monocytes # (Manual) 0.9 Eosinophils # Basophils # Basophils # (Manual) 0.1 H Nucleated Red Blood Cells # Platelet Estimate NORMAL Giant Platelets 1 H Polychromasia 1+ Poikilocytosis 1+ Anisocytosis 1+ Microcytosis 1+ Sodium Level 140 Potassium Level 3.7 Chloride Level 118 H Carbon Dioxide Level 13 L Anion Gap 9 Blood Urea Nitrogen 10 Creatinine 1.18 H Est Glomerular Filtrat Rate mL/min 48 L Glucose Level 88 Calcium Level 8.2 L Phosphorus Level 3.5 Magnesium Level 1.9 Medications Medication Current Medications Sodium Chloride 1,000 ml @ 50 mls/hr Q20H IV Last administered on 08/15/18 21:30; Admin Dose 50 MLS/HR; Start 08/12/18 at 13:16 IV Flush (NS 3 ml) 3 ml PER PROTOCOL IV ; Start 08/12/18 at 13:30 Ondansetron HCl (Zofran Inj) 4 mg Q6H PRN IV NAUSEA/VOMITING Last administered on 08/14/18 08:54; Admin Dose 4 MG; Start 08/12/18 at 13:30 Acetaminophen (Tylenol Tab) 650 mg Q6H PRN PO .PAIN 1-3 OR TEMP Last administered on 08/12/18 23:20; Admin Dose 650 MG; Start 08/12/18 at 13:30 Acetaminophen (Tylenol Supp) 650 mg Q6H PRN [place] .PAIN 1-3 OR TEMP; Start 08/12/18 at 13:30 Acetaminophen/ Hydrocodone Bitart ([place] (5/325)) 1 tab Q6H PRN PO .MOD PAIN 4- 6 Last administered on 08/16/18 07:34; Admin Dose 1 TAB; Start 08/12/18 at 13:30 Clonidine HCl (Catapres-Tts 1 Patch) 1 patch Q7D TRANSDERM Last administered on 08/12/18 17:54; Admin Dose 1 PATCH; Start 08/12/18 at 17:00 Enoxaparin Sodium (Lovenox) 40 mg DAILY SC Last administered on 08/15/18 09:58; Admin Dose 40 MG; Start 08/13/18 at 09:00; Status Hold Senna/Docusate Sodium (Senokot-S) 2 tab HS PO Last administered on 08/15/18 21:31; Admin Dose 2 TAB; Start 08/12/18 at 21:00 Diclofenac Sodium (Voltaren 1% Gel) 2 gm QID TP Last administered on 08/16/18 12:18; Admin Dose 2 GM; Start 08/12/18 at 17:00 Lacosamide (Vimpat Liq) 100 mg BID PO Last administered on 08/16/18 08:33; Admin Dose 100 MG; Start 08/12/18 at 21:00 Lactobacillus Acidophilus/ Rhamnosus (Culturelle) 1 cap BID PO Last administered on 08/16/18 08:33; Admin Dose 1 CAP; Start 08/12/18 at 21:00 Levothyroxine Sodium (Synthroid) 50 mcg BEFORE BREAKFAST PO Last administered on 08/16/18 06:33; Admin Dose 50 MCG; Start 08/13/18 at 07:00 Lidocaine (Lidoderm) 1 patch DAILY TRANSDERM Last administered on 08/16/18 08:34; Admin Dose 1 PATCH; Start 08/13/18 at 09:00 Nifedipine (Procardia Xl) 90 mg DAILY PO Last administered on 08/16/18 08:33; Admin Dose 90 MG; Start 08/13/18 at 09:00 Oxcarbazepine (Trileptal) 300 mg BID PO Last administered on 08/16/18 08:32; Admin Dose 300 MG; Start 08/12/18 at 21:00 Pantoprazole (Protonix Tab) 40 mg BID@0600,1800 PO Last administered on 08/16 06:33; Admin Dose 40 MG; Start 08/12/18 at 18:00 Risperidone (Risperdal) 0.25 mg BID PO Last administered on 08/16/18 08:32; Admin Dose 0.25 MG; Start 08/12/18 at 21:00 Ibuprofen (Motrin) 600 mg Q6H PRN PO MILD PAIN LEVEL 1-3 Last administered on 08/13/18 01:08; Admin Dose 600 MG; Start 08/13/18 at 01:00 Vancomycin HCl (Vanco Iv Per Pharmacy) VANCOMYCIN PER PHARMACY PER PROTOCOL XX ; Start 08/14/18 at 15:00 Vancomycin HCl 100 ml @ 100 mls/hr Q24H IVPB Last administered on 08/16/18at 01:09; Admin Dose 100 MLS/HR; Start 08/16/18 at 01:00 Cefepime HCl 50 ml @ 100 mls/hr Q24H IVPB Last administered on 08/15/18at 21:31; Admin Dose 100 MLS/HR; Start 08/14/18 at 20:00 Morphine Sulfate (morphine) 6 mg Q4H PRN PO SEVERE PAIN LEVEL 7-10; Start 08/15/18 at 16:00 Famotidine (Pepcid) 20 mg DAILY PO Last administered on 08/16/18at 08:33; Admin Dose 20 MG; Start 08/16/18 at 09:00 CAILIN ROBBINS NP Aug 16, 2018 13:47
[2018-08-16 14:00] VITALS: BP 140/75; PULSE 115; RESP 18
[2018-08-16] MEDS: SOD CHLORIDE 0.9% 1,000 ML IV SCH ×2 (15:03→20:50)
--- NOTE | 2018-08-16 16:16 | CONS ---
Assessment/Plan Assessment/Plan Hospital Course 53 F c/ Hx of prior strokes c/b epilepsy...and other comorbidities...who reportedly presents for evaluation of ams. 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 The clinical picture suggests an acute toxic-metabolic encephalopathy.. Recurrent seizure is unlikely.. Recurrent stroke is unlikely.. Head CT is reassuringly without acute intracranial pathology. P: Start low dose asa for secondary stroke prevention when medically able Continued medical management per primary Continue Trileptal 300 mg bid for now; await trileptal level Continue Vimpat 100mg bid for now Reorient as necessary Limit sedating medications where possible PT/OT/ST as necessary Will follow clinically Consultation Date/Type/Reason Admit Date/Time Aug 12, 2018 at 12:45 Type of Consult Neurology Requesting Provider: FELIX FERNANDES NP Date/Time of Note DATE: 08/16/18 TIME: 16:06 24 HR Interval Summary Free Text/Dictation Continues medsurg monitoring. No acute events reported. Pt unable to contribute at this time Exam Vital Signs Vitals Vital Signs Date Temp Pulse Resp B/P (MAP) Pulse Ox O2 O2 Flow FiO2 Time Delivery Rate 08/16/18 98.1 115 18 140/75 100 Room Air 14:00 (96) Intake and Output 08/15/18 08/15/18 08/16/18 1515:00 23:00 07:00 IntakeIntake Total 240 ml 1020 ml OutputOutput Total 700 ml BalanceBalance -460 ml 1020 ml Exam PE: Gen Appearance: Appears withdrawn, with flat affect HEENT: Normocephalic Cardiovascular: Regular rate Abdomen: Soft Extremities: Dry NE: The patient was lethargic and incomprehensibly verbal (hypophonic)... perseverative.. Cranial nerve examination was limited by mental status. Pupils were equal and reactive to light. There was no afferent pupillary defect. Funduscopic examination was limited. Face was grossly symmetric, w/ present corneal and cough reflexes. Tone was increased on the left. Muscle bulk was normal. I did not see fasciculations. Appreciably weak on the left... Coordination and gait testing was limited by mental status. Arm and leg reflexes were within normal limits and symmetric. Calloway's sign was absent. Plantar responses were flexor. SID LYNCH NP Aug 16, 2018 16:16
[2018-08-16 20:00] VITALS: BP 134/65; PULSE 104; RESP 19
[2018-08-16] MEDS: CEFEPIME 1GM/50 ML (PMX) 50 ML IVPB SCH (20:35)
[2018-08-16] MEDS: SENNA/DOCUSATE NA (8.6MG/50MG) TAB PO SCH (20:40)
[2018-08-17] MEDS: VANCOMYCIN 500 MG (PMX) 100 ML IVPB SCH (00:08)
[2018-08-17 02:00] VITALS: BP 138/69; PULSE 98; RESP 19
[2018-08-17] MEDS: PANTOPRAZOLE (EC) 40 MG TAB PO SCH ×2 (06:06→17:10)
[2018-08-17] MEDS: LEVOTHYROXINE 50 MCG TAB PO SCH (06:07)
[2018-08-17 07:49] VITALS: BP 135/71; PULSE 94; RESP 18
[2018-08-17] MEDS: LACOSAMIDE (100 MG/10 ML PO SYR) PO SCH ×2 (08:18→20:18)
[2018-08-17] MEDS: RISPERIDONE 0.25 MG TAB PO SCH ×2 (08:18→20:19)
[2018-08-17] MEDS: FAMOTIDINE 20 MG TAB PO SCH (08:19)
[2018-08-17] MEDS: OXCARBAZEPINE 300 MG TAB PO SCH ×2 (08:19→20:18)
[2018-08-17] MEDS: LACTOBACILLUS RHAMNOSUS CAP PO SCH ×2 (08:19→20:19)
[2018-08-17] MEDS: NIFEdipine (XL) 90 MG TAB PO SCH (08:19)
[2018-08-17] MEDS: LIDOCAINE 5% PATCH TRANSDERM SCH (08:20)
[2018-08-17] MEDS: BALSAM PERU/CASTOR OIL 60 GM TUBE TOP SCH ×2 (08:20→20:31)
[2018-08-17] MEDS: DICLOFENAC SODIUM 1% GEL 100 GM TUBE TP SCH ×4 (08:20→20:31)
--- NOTE | 2018-08-17 11:00 | PN ---
Date/Time of Note Date/Time of Note DATE: 08/17/18 TIME: 10:58 Assessment/Plan VTE Prophylaxis Risk score (from Ns)>0 risk: 2 SCD applied (from Ns): Yes Pharmacological prophylaxis: NA/contraindicated Pharm contraindication: anticoag not tolerated Lines/Catheters [facility] Urinary Cath still in place: Yes Reason Cath still needed: other (indicate) Assessment/Plan Hospital Course SUBJECTIVE: Patient is more calm and cooperative today. Remains afebrile. OBJECTIVE: Physical Exam General: Adequately build 53 year-old female lying in bed in no apparent distress. HEENT: Normocephalic, atraumatic. Eyes: Anicteric sclerae, conjunctivae clear. ENT: Nasal septum midline, oral mucosa moist. Neck supple. Respiratory: Bilaterally clear breath sounds. No use of accessory muscles of respiration. No adventitious breath sounds. Cardiovascular: S1, S2 heard. Regular rate and rhythm. Abdomen: Soft and nondistended. Left upper quadrant tenderness. Bowel sounds positive in all 4 quadrants. Genitourinary: Deferred. Extremities: No cyanosis, no clubbing, no edema. Peripheral pulses palpable. Neurologic: The patient is awake and alert. Oriented to self. Flat affect. Skin: Normal skin turgor. No skin rashes. Labs & Vitals per chart ASSESSMENT & PLAN 53-year-old female with comorbidities including hypertension, dyslipidemia, hypothyroidism, chronic kidney disease, GERD, CVA, and chronic pelvic fracture and chronic sub-capital left femoral fracture. The patient was recently discharged from [facility] on 08/10/2018 when she had a E. coli ESBL urinary tract infection. The patient returned back to the emergency room at [facility] on 08/12/2018 because of fevers and bilateral lower extremity edema. The patient was noticed to have leukocytosis with a WBC of 37,000 and febrile illness with underlying tachycardia. Therefore, the patient was admitted to inpatient setting for further treatment and evaluation. 1. Sepsis with leukocytosis, febrile illness, bandemia, and tachycardia, present on admission. -Etiology unclear. -On antimicrobials. -Being followed by infectious diseases. -WBC scan showed area of increased activity in the right proximal thigh/right proximal femur; 2. Chronic kidney disease. -Continue to monitor BUN and creatinine closely. 3. Seizure disorder. -Continue Vimpat. 4. 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 -Continue conservative management. -Status post evaluation by orthopedic surgery during her prior visit. 5. Essential hypertension. -Continue antihypertensives. 6. GERD. -Continue H2 receptor blockers.. 7. Chronic encephalopathy. -?Toxic metabolic. -Recent brain CT scan negative. -Neurology following. 8. Dyslipidemia. -Continue statins. 9. Normocytic, normochromic anemia. -Monitor H&H closely. -Status post 1 unit of PRBC transfusion on 08/14/2018. -Stool OBX1 negative. 10. Fluids, electrolytes, and nutrition. -Low-cholesterol diet. 11. DVT prophylaxis. -Subcutaneous Lovenox (on hold because of anemia) 12. Plan. -Monitor leukocytosis. -Await clinical improvement. The patient was seen in collaboration with Dr. Olson. The patient's current status, the plan of care regarding the chronic fractures, and prognosis was explained to the patient's daughter over the phone on 08/14/2018. Result Diagram: 08/17/18 0536 08/17/18 0536 Results 24hrs Laboratory Tests Test 08/16/18 12:25 08/16/18 23:04 08/17/18 05:36 Stool Occult Blood NEGATIVE Lactic Acid Level 1.1 White Blood Count 8.7 # Red Blood Count 3.07 L Hemoglobin 9.5 L Hematocrit 28.5 L Mean Corpuscular Volume 92.8 Mean Corpuscular Hemoglobin 30.9 Mean Corpuscular Hemoglobin Concent 33.3 Red Cell Distribution Width 16.6 H Platelet Count 237 Mean Platelet Volume 8.9 Immature Granulocytes % 1.600 H Neutrophils % 67.7 Lymphocytes % 18.1 Monocytes % 11.5 H Eosinophils % 0.6 Basophils % 0.5 Nucleated Red Blood Cells % 0.0 Immature Granulocytes # 0.140 H Neutrophils # 5.9 Lymphocytes # 1.6 Monocytes # 1.0 H Eosinophils # 0.1 Basophils # 0.0 Nucleated Red Blood Cells # 0.0 Sodium Level 143 Potassium Level 3.4 L Chloride Level 123 H Carbon Dioxide Level 13 L Anion Gap 7 Blood Urea Nitrogen 9 Creatinine 1.11 H Est Glomerular Filtrat Rate mL/min 51 L Glucose Level 80 Calcium Level 8.1 L Phosphorus Level 4.4 Magnesium Level 1.6 L Exam/Review of Systems Exam Vitals Vital Signs Date Temp Pulse Resp B/P (MAP) Pulse Ox O2 O2 Flow FiO2 Time Delivery Rate 08/17/18 98.1 94 18 135/71 100 Room Air 07:49 (92) Intake and Output 08/16/18 08/16/18 08/17/18 1414:59 22:59 06:59 IntakeIntake Total 120 ml 670 ml 820 ml OutputOutput Total 1850 ml 800 ml 1500 ml BalanceBalance -1730 ml -130 ml -680 ml Results Results 24hrs Laboratory Tests Test 08/16/18 12:25 08/16/18 23:04 08/17/18 05:36 Stool Occult Blood NEGATIVE Lactic Acid Level 1.1 White Blood Count 8.7 # Red Blood Count 3.07 L Hemoglobin 9.5 L Hematocrit 28.5 L Mean Corpuscular Volume 92.8 Mean Corpuscular Hemoglobin 30.9 Mean Corpuscular Hemoglobin Concent 33.3 Red Cell Distribution Width 16.6 H Platelet Count 237 Mean Platelet Volume 8.9 Immature Granulocytes % 1.600 H Neutrophils % 67.7 Lymphocytes % 18.1 Monocytes % 11.5 H Eosinophils % 0.6 Basophils % 0.5 Nucleated Red Blood Cells % 0.0 Immature Granulocytes # 0.140 H Neutrophils # 5.9 Lymphocytes # 1.6 Monocytes # 1.0 H Eosinophils # 0.1 Basophils # 0.0 Nucleated Red Blood Cells # 0.0 Sodium Level 143 Potassium Level 3.4 L Chloride Level 123 H Carbon Dioxide Level 13 L Anion Gap 7 Blood Urea Nitrogen 9 Creatinine 1.11 H Est Glomerular Filtrat Rate mL/min 51 L Glucose Level 80 Calcium Level 8.1 L Phosphorus Level 4.4 Magnesium Level 1.6 L Medications Medication Current Medications Sodium Chloride 1,000 ml @ 50 mls/hr Q20H IV Last administered on 08/16/18at 20:50; Admin Dose 50 MLS/HR; Start 08/12/18 at 13:16 IV Flush (NS 3 ml) 3 ml PER PROTOCOL IV ; Start 08/12/18 at 13:30 Ondansetron HCl (Zofran Inj) 4 mg Q6H PRN IV NAUSEA/VOMITING Last administered on 08/14/18at 08:54; Admin Dose 4 MG; Start 08/12/18 at 13:30 Acetaminophen (Tylenol Tab) 650 mg Q6H PRN PO .PAIN 1-3 OR TEMP Last administered on 08/12/18 23:20; Admin Dose 650 MG; Start 08/12/18 at 13:30 Acetaminophen (Tylenol Supp) 650 mg Q6H PRN [place] .PAIN 1-3 OR TEMP; Start 08/12/18 at 13:30 Acetaminophen/ Hydrocodone Bitart ([place] (5/325)) 1 tab Q6H PRN PO .MOD PAIN 4- 6 Last administered on 08/16/18 18:10; Admin Dose 1 TAB; Start 08/12/18 at 13:30 Clonidine HCl (Catapres-Tts 1 Patch) 1 patch Q7D TRANSDERM Last administered on 08/12/18 17:54; Admin Dose 1 PATCH; Start 08/12/18 at 17:00 Enoxaparin Sodium (Lovenox) 40 mg DAILY SC Last administered on 08/15/18 09:58; Admin Dose 40 MG; Start 08/13/18 at 09:00; Status Hold Senna/Docusate Sodium (Senokot-S) 2 tab HS PO Last administered on 08/16/18 20:40; Admin Dose 2 TAB; Start 08/12/18 at 21:00 Diclofenac Sodium (Voltaren 1% Gel) 2 gm QID TP Last administered on 08/17/18 08:20; Admin Dose 2 GM; Start 08/12/18 at 17:00 Lacosamide (Vimpat Liq) 100 mg BID PO Last administered on 08/17/18 08:18; Admin Dose 100 MG; Start 08/12/18 at 21:00 Lactobacillus Acidophilus/ Rhamnosus (Culturelle) 1 cap BID PO Last administered on 08/17/18 08:19; Admin Dose 1 CAP; Start 08/12/18 at 21:00 Levothyroxine Sodium (Synthroid) 50 mcg BEFORE BREAKFAST PO Last administered on 08/17/18 06:07; Admin Dose 50 MCG; Start 08/13/18 at 07:00 Lidocaine (Lidoderm) 1 patch DAILY TRANSDERM Last administered on 08/17/18 08:20; Admin Dose 1 PATCH; Start 08/13/18 at 09:00 Nifedipine (Procardia Xl) 90 mg DAILY PO Last administered on 08/17/18 08:19; Admin Dose 90 MG; Start 08/13/18 at 09:00 Oxcarbazepine (Trileptal) 300 mg BID PO Last administered on 08/17/18 08:19; Admin Dose 300 MG; Start 08/12/18 at 21:00 Pantoprazole (Protonix Tab) 40 mg BID@0600,1800 PO Last administered on 08/17/18 t 06:06; Admin Dose 40 MG; Start 08/12/18 at 18:00 Risperidone (Risperdal) 0.25 mg BID PO Last administered on 08/17/18 08:18; Admin Dose 0.25 MG; Start 08/12/18 at 21:00 Ibuprofen (Motrin) 600 mg Q6H PRN PO MILD PAIN LEVEL 1-3 Last administered on 08/13/18 01:08; Admin Dose 600 MG; Start 08/13/18 at 01:00 Vancomycin HCl (Vanco Iv Per Pharmacy) VANCOMYCIN PER PHARMACY PER PROTOCOL XX ; Start 08/14/18 at 15:00 Vancomycin HCl 100 ml @ 100 mls/hr Q24H IVPB Last administered on 08/17/18 00:08; Admin Dose 100 MLS/HR; Start 08/16/18 at 01:00 Cefepime HCl 50 ml @ 100 mls/hr Q24H IVPB Last administered on 08/16/18 20:35; Admin Dose 100 MLS/HR; Start 08/14/18 at 20:00 Morphine Sulfate (morphine) 6 mg Q4H PRN PO SEVERE PAIN LEVEL 7-10; Start 08/15/18 at 16:00 Famotidine (Pepcid) 20 mg DAILY PO Last administered on 08/17/18 08:19; Admin Dose 20 MG; Start 08/16/18 at 09:00 FELIX FERNANDES NP Aug 17, 2018 11:00
[2018-08-17] MEDS: HYDROCODONE/APAP (5/325) TAB PO PRN (11:10)
[2018-08-17] MEDS: ONDANSETRON 4 MG INJ IV PRN (11:14)
--- NOTE | 2018-08-17 11:14 | CONS ---
Assessment/Plan Assessment/Plan Hospital Course (Demo Recall) All noted, no fevers over night WBC scan revealed area of increased activity in the right proximal thigh/right proximal femur; inflammatory/infectious process cannot be ruled out. Antimicrobials: Vanco Cefepime Microbiology: all cx's negative Physical examination: Well-nourished well-developed ill-appearing middle-aged woman in no distress. Head atraumatic normocephalic sclera nonicteric, neck is supple, chest rise symmetrical, breath sounds diminished bases, heart S1-S2, abdomen soft, bowel sounds present, extremities without cyanosis Assessment: 1. Sepsis present on admission 2. Acute encephalopathy 3. S/p E coli ESBL UTI 4. History of CVA 5. Hypertension 6. Seizure disorder 7. Acute possibly on chronic kidney disease Plan: Clinically unchanged, wbc normalized, continue abx, consider R thigh MRI Consultation Date/Type/Reason Admit Date/Time Aug 12, 2018 at 12:45 Initial Consult Date Type of Consult id Requesting Provider: FELIX FERNANDES NP Date/Time of Note DATE: 08/17/18 TIME: 11:11 Exam/Review of Systems Exam Vitals Vital Signs Date Temp Pulse Resp B/P (MAP) Pulse Ox O2 O2 Flow FiO2 Time Delivery Rate 08/17/18 98.1 94 18 135/71 100 Room Air 07:49 (92) Intake and Output 08/16/18 08/16/18 08/17/18 1515:00 23:00 07:00 IntakeIntake Total 120 ml 670 ml 820 ml OutputOutput Total 1850 ml 800 ml 1500 ml BalanceBalance -1730 ml -130 ml -680 ml Results Result Diagram: 08/17/18 0536 08/17/18 0536 Results 24hrs Laboratory Tests Test 08/16/18 12:25 08/16/18 23:04 08/17/18 05:36 Stool Occult Blood NEGATIVE Lactic Acid Level 1.1 White Blood Count 8.7 # Red Blood Count 3.07 L Hemoglobin 9.5 L Hematocrit 28.5 L Mean Corpuscular Volume 92.8 Mean Corpuscular Hemoglobin 30.9 Mean Corpuscular Hemoglobin Concent 33.3 Red Cell Distribution Width 16.6 H Platelet Count 237 Mean Platelet Volume 8.9 Immature Granulocytes % 1.600 H Neutrophils % 67.7 Lymphocytes % 18.1 Monocytes % 11.5 H Eosinophils % 0.6 Basophils % 0.5 Nucleated Red Blood Cells % 0.0 Immature Granulocytes # 0.140 H Neutrophils # 5.9 Lymphocytes # 1.6 Monocytes # 1.0 H Eosinophils # 0.1 Basophils # 0.0 Nucleated Red Blood Cells # 0.0 Sodium Level 143 Potassium Level 3.4 L Chloride Level 123 H Carbon Dioxide Level 13 L Anion Gap 7 Blood Urea Nitrogen 9 Creatinine 1.11 H Est Glomerular Filtrat Rate mL/min 51 L Glucose Level 80 Calcium Level 8.1 L Phosphorus Level 4.4 Magnesium Level 1.6 L Medications Medication Current Medications Sodium Chloride 1,000 ml @ 50 mls/hr Q20H IV Last administered on 08/16/18 20:50; Admin Dose 50 MLS/HR; Start 08/12/18 at 13:16 IV Flush (NS 3 ml) 3 ml PER PROTOCOL IV ; Start 08/12/18 at 13:30 Ondansetron HCl (Zofran Inj) 4 mg Q6H PRN IV NAUSEA/VOMITING Last administered on 08/14/18 08:54; Admin Dose 4 MG; Start 08/12/18 at 13:30 Acetaminophen (Tylenol Tab) 650 mg Q6H PRN PO .PAIN 1-3 OR TEMP Last administered on 08/12/18 23:20; Admin Dose 650 MG; Start 08/12/18 at 13:30 Acetaminophen (Tylenol Supp) 650 mg Q6H PRN [place] .PAIN 1-3 OR TEMP; Start 08/12/18 at 13:30 Acetaminophen/ Hydrocodone Bitart ([place] (5/325)) 1 tab Q6H PRN PO .MOD PAIN 4- 6 Last administered on 08/17/18 11:10; Admin Dose 1 TAB; Start 08/12/18 at 13:30 Clonidine HCl (Catapres-Tts 1 Patch) 1 patch Q7D TRANSDERM Last administered on 08/12/18 17:54; Admin Dose 1 PATCH; Start 08/12/18 at 17:00 Enoxaparin Sodium (Lovenox) 40 mg DAILY SC Last administered on 08/15/18 09:58; Admin Dose 40 MG; Start 08/13/18 at 09:00; Status Hold Senna/Docusate Sodium (Senokot-S) 2 tab HS PO Last administered on 08/16/18 20:40; Admin Dose 2 TAB; Start 08/12/18 at 21:00 Diclofenac Sodium (Voltaren 1% Gel) 2 gm QID TP Last administered on 08/17/18 08:20; Admin Dose 2 GM; Start 08/12/18 at 17:00 Lacosamide (Vimpat Liq) 100 mg BID PO Last administered on 08/17/18 08:18; Admin Dose 100 MG; Start 08/12/18 at 21:00 Lactobacillus Acidophilus/ Rhamnosus (Culturelle) 1 cap BID PO Last administered on 08/17/18 08:19; Admin Dose 1 CAP; Start 08/12/18 at 21:00 Levothyroxine Sodium (Synthroid) 50 mcg BEFORE BREAKFAST PO Last administered on 08/17/18 06:07; Admin Dose 50 MCG; Start 08/13/18 at 07:00 Lidocaine (Lidoderm) 1 patch DAILY TRANSDERM Last administered on 08/17/18 08:20; Admin Dose 1 PATCH; Start 08/13/18 at 09:00 Nifedipine (Procardia Xl) 90 mg DAILY PO Last administered on 08/17/18 08:19; Admin Dose 90 MG; Start 08/13/18 at 09:00 Oxcarbazepine (Trileptal) 300 mg BID PO Last administered on 08/17/18 08:19; Admin Dose 300 MG; Start 08/12/18 at 21:00 Pantoprazole (Protonix Tab) 40 mg BID@0600,1800 PO Last administered on 08/17/18 06:06; Admin Dose 40 MG; Start 08/12/18 at 18:00 Risperidone (Risperdal) 0.25 mg BID PO Last administered on 08/17/18 08:18; Admin Dose 0.25 MG; Start 08/12/18 at 21:00 Ibuprofen (Motrin) 600 mg Q6H PRN PO MILD PAIN LEVEL 1-3 Last administered on 08/13/18 01:08; Admin Dose 600 MG; Start 08/13/18 at 01:00 Vancomycin HCl (Vanco Iv Per Pharmacy) VANCOMYCIN PER PHARMACY PER PROTOCOL XX ; Start 08/14/18 at 15:00 Vancomycin HCl 100 ml @ 100 mls/hr Q24H IVPB Last administered on 2/8/19at 00: 08; Admin Dose 100 MLS/HR; Start 08/16/18 at 01:00 Cefepime HCl 50 ml @ 100 mls/hr Q24H IVPB Last administered on 08/16/18at 20:35; Admin Dose 100 MLS/HR; Start 08/14/18 at 20:00 Morphine Sulfate (morphine) 6 mg Q4H PRN PO SEVERE PAIN LEVEL 7-10; Start 08/15/18 at 16:00 Famotidine (Pepcid) 20 mg DAILY PO Last administered on 08/17/18at 08:19; Admin Dose 20 MG; Start 08/16/18 at 09:00 Magnesium Sulfate 50 ml @ 25 mls/hr ONCE ONCE IVPB ; Start 08/17/18 at 12:00; Stop 08/17/18 at 13:59 Potassium Chloride (Klor-Con 10) 30 meq ONCE ONCE PO ; Start 08/17/18 at 12:00; Stop 08/17/18 at 12:01 CAILIN ROBBINS NP Aug 17, 2018 11:14
[2018-08-17] MEDS ORDERED: MAGNESIUM SULFATE 2 GM/50 ML 50 ML IVPB ONE (12:00)
[2018-08-17] MEDS ORDERED: POTASSIUM CHLORIDE (SR) 10 MEQ TAB PO ONE (12:00)
[2018-08-17 14:07] VITALS: BP 156/72; PULSE 93; RESP 16
--- NOTE | 2018-08-17 18:08 | CONS ---
Assessment/Plan Assessment/Plan Hospital Course 53 F c/ Hx of prior strokes c/b epilepsy...and other comorbidities...who reportedly presents for evaluation of ams. 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 The clinical picture suggests an acute toxic-metabolic encephalopathy.. Recurrent seizure is unlikely.. Recurrent stroke is unlikely.. Head CT is reassuringly without acute intracranial pathology. P: Start low dose asa for secondary stroke prevention when medically able Continued medical management per primary Continue Trileptal 300 mg bid for now; await trileptal level Continue Vimpat 100mg bid for now Reorient as necessary Limit sedating medications where possible PT/OT/ST as necessary Will follow clinically Consultation Date/Type/Reason Admit Date/Time Aug 12, 2018 at 12:45 Type of Consult Neurology Requesting Provider: FELIX FERNANDES NP Date/Time of Note DATE: 08/17/18 TIME: 18:08 24 HR Interval Summary Free Text/Dictation Continues medsurg monitoring. Reportedly more awake today. Pt states that she feels less confused than yesterday. Exam Vital Signs Vitals Vital Signs Date Temp Pulse Resp B/P (MAP) Pulse Ox O2 O2 Flow FiO2 Time Delivery Rate 08/17/18 97.2 93 16 156/72 100 Room Air 14:07 (100) Intake and Output 08/16/18 08/16/18 08/17/18 1515:00 23:00 07:00 IntakeIntake Total 120 ml 670 ml 820 ml OutputOutput Total 1850 ml 800 ml 1500 ml BalanceBalance -1730 ml -130 ml -680 ml Exam PE: Gen Appearance: No Apparent Distress HEENT: Normocephalic Cardiovascular: Regular rate Lungs: Clear bilaterally Abdomen: Soft Extremities: Dry NE: The patient was alert though mildly disoriented. Oriented to self, hospital, and situation. Language was normal. Fund of knowledge was normal. Pupils were equal and reactive to light. There was no afferent pupillary defect. Visual carven were normal. Funduscopic examination was limited. Extra-ocular movements were full. Ptosis was absent. There was no nystagmus. Facial sensation was normal. Face was symmetric with normal strength. Hearing was intact. Palate movements were normal. Neck strength was normal. There was normal tongue bulk and speed of movement. Tone was normal. Muscle bulk was normal. I did not see fasciculations. Arms and legs were mildly weak and symmetric. Vibration sensation was normal. Temperature and pinprick sensation was normal. Rapid alternating movements were normal. There was no dysmetria. There was no intention tremor. Gait was deferred due to bedrest. Arm and leg reflexes were 2+ and symmetric. Calloway's sign was absent. Plantar responses were flexor. SID LYNCH NP Aug 17, 2018 18:08
[2018-08-17 19:32] VITALS: BP 139/74; PULSE 81; RESP 18
[2018-08-17 19:49] VITALS: BP 137/66; PULSE 94; RESP 18
[2018-08-17] MEDS: SENNA/DOCUSATE NA (8.6MG/50MG) TAB PO SCH (20:19)
[2018-08-17] MEDS: CEFEPIME 1GM/50 ML (PMX) 50 ML IVPB SCH (20:19)
[2018-08-17] MEDS: IBUPROFEN 600 MG TAB PO PRN (20:22)
[2018-08-17] MEDS: SOD CHLORIDE 0.9% 1,000 ML IV SCH (20:36)
[2018-08-18] VITALS (8 sets, daily range): BP systolic 126–177; BP diastolic 58–89; PULSE 82–139; RESP 16–20
[2018-08-18] MEDS: VANCOMYCIN 500 MG (PMX) 100 ML IVPB SCH (02:19)
--- NOTE | 2018-08-18 06:22 | PN ---
Date/Time of Note Date/Time of Note DATE: 08/18/18 TIME: 06:21 Assessment/Plan VTE Prophylaxis Risk score (from Ns)>0 risk: 2 SCD applied (from [facility]): No SCD contraindicated: other Pharmacological prophylaxis: NA/contraindicated Pharm contraindication: anticoag not tolerated Lines/Catheters IV C[facility]ter Type (from [facility] Mid Line Urinary Cath still in place: Yes Reason Cath still needed: other (indicate) Assessment/Plan Hospital Course SUBJECTIVE: Patient is more calm and cooperative today. Remains afebrile. OBJECTIVE: Physical Exam General: Adequately build 53 year-old female lying in bed in no apparent distress. HEENT: Normocephalic, atraumatic. Eyes: Anicteric sclerae, conjunctivae clear. ENT: Nasal septum midline, oral mucosa moist. Neck supple. Respiratory: Bilaterally clear breath sounds. No use of accessory muscles of respiration. No adventitious breath sounds. Cardiovascular: S1, S2 heard. Regular rate and rhythm. Abdomen: Soft and nondistended. Left upper quadrant tenderness. Bowel sounds positive in all 4 quadrants. Genitourinary: Deferred. Extremities: No cyanosis, no clubbing, no edema. Peripheral pulses palpable. Neurologic: The patient is awake and alert. Oriented to self. Flat affect. Skin: Normal skin turgor. No skin rashes. Labs & Vitals per chart ASSESSMENT & PLAN 53-year-old female with comorbidities including hypertension, dyslipidemia, hy pothyroidism, chronic kidney disease, GERD, CVA, and chronic pelvic fracture and chronic sub-capital left femoral fracture. The patient was recently discharged from [facility] on 08/10/2018 when she had a E. coli ESBL urinary tract infection. The patient returned back to the emergency room at [facility] on 08/12/2018 because of fevers and bilateral lower extremity edema. The patient was noticed to have leukocytosis with a WBC of 37,000 and febrile illness with underlying tachycardia. Therefore, the patient was admitted to inpatient setting for further treatment and evaluation. 1. Sepsis with leukocytosis, febrile illness, bandemia, and tachycardia, present on admission. -Etiology unclear. -On antimicrobials. -Being followed by infectious diseases. -WBC scan showed area of increased activity in the right proximal thigh/right proximal femur. Will order MRI of the right femur. 2. Chronic kidney disease. -Continue to monitor BUN and creatinine closely. 3. Seizure disorder. -Continue Vimpat. 4. 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 -Continue conservative management. -Status post evaluation by orthopedic surgery during her prior visit. 5. Essential hypertension. -Continue antihypertensives. 6. GERD. -Continue H2 receptor blockers.. 7. Chronic encephalopathy. -?Toxic metabolic. -Recent brain CT scan negative. -Neurology following. 8. Dyslipidemia. -Continue statins. 9. Normocytic, normochromic anemia. -Monitor H&H closely. -Status post 1 unit of PRBC transfusion on 08/14/2018. -Stool OBX1 negative. 10. Fluids, electrolytes, and nutrition. -Low-cholesterol diet. 11. DVT prophylaxis. -Subcutaneous Lovenox (on hold because of anemia) 12. Plan. -Monitor leukocytosis. -MRI of the right femur. -Await clinical improvement. The patient was seen in collaboration with Dr. Olson. The patient's current status, the plan of care regarding the chronic fractures, and prognosis was explained to the patient's daughter over the phone on 08/14/2018. Result Diagram: 08/17/18 0536 08/17/18 0536 Results 24hrs Laboratory Tests Test 08/18/18 00:18 Vancomycin Level Trough 12.5 Exam/Review of Systems Exam Vitals Vital Signs Date Temp Pulse Resp B/P (MAP) Pulse Ox O2 O2 Flow FiO2 Time Delivery Rate 08/18/18 97.6 86 18 126/58 99 02:04 (80) 08/17/18 Room Air 14:07 Intake and Output 08/17/18 08/17/18 08/18/18 1515:00 23:00 07:00 IntakeIntake Total 50 ml 1910 ml OutputOutput Total 800 ml BalanceBalance 50 ml 1110 ml Results Results 24hrs Laboratory Tests Test 08/18/18 00:18 Vancomycin Level Trough 12.5 Medications Medication Current Medications Sodium Chloride 1,000 ml @ 50 mls/hr Q20H IV Last administered on 08/17/18at 20:36; Admin Dose 50 MLS/HR; Start 08/12/18 at 13:16 IV Flush (NS 3 ml) 3 ml PER PROTOCOL IV ; Start 08/12/18 at 13:30 Ondansetron HCl (Zofran Inj) 4 mg Q6H PRN IV NAUSEA/VOMITING Last administered on 08/17/18 11:14; Admin Dose 4 MG; Start 08/12/18 at 13:30 Acetaminophen (Tylenol Tab) 650 mg Q6H PRN PO .PAIN 1-3 OR TEMP Last administered on 08/12/18 23:20; Admin Dose 650 MG; Start 08/12/18 at 13:30 Acetaminophen (Tylenol Supp) 650 mg Q6H PRN [place] .PAIN 1-3 OR TEMP; Start 08/12/18 at 13:30 Acetaminophen/ Hydrocodone Bitart ([place] (5/325)) 1 tab Q6H PRN PO .MOD PAIN 4- 6 Last administered on 08/17/18 11:10; Admin Dose 1 TAB; Start 08/12/18 at 13:30 Clonidine HCl (Catapres-Tts 1 Patch) 1 patch Q7D TRANSDERM Last administered on 08/12/18 17:54; Admin Dose 1 PATCH; Start 08/12/18 at 17:00 Enoxaparin Sodium (Lovenox) 40 mg DAILY SC Last administered on 08/15/18 09:58; Admin Dose 40 MG; Start 08/13/18 at 09:00; Status Hold Senna/Docusate Sodium (Senokot-S) 2 tab HS PO Last administered on 08/17/18 2 0:19; Admin Dose 2 TAB; Start 08/12/18 at 21:00 Diclofenac Sodium (Voltaren 1% Gel) 2 gm QID TP Last administered on 08/17/18 20:31; Admin Dose 2 GM; Start 08/12/18 at 17:00 Lacosamide (Vimpat Liq) 100 mg BID PO Last administered on 08/17/18 20:18; Admin Dose 100 MG; Start 08/12/18 at 21:00 Lactobacillus Acidophilus/ Rhamnosus (Culturelle) 1 cap BID PO Last administered on 08/17/18 20:19; Admin Dose 1 CAP; Start 08/12/18 at 21:00 Levothyroxine Sodium (Synthroid) 50 mcg BEFORE BREAKFAST PO Last administered on 08/17/18 06:07; Admin Dose 50 MCG; Start 08/13/18 at 07:00 Lidocaine (Lidoderm) 1 patch DAILY TRANSDERM Last administered on 08/17/18 08:20; Admin Dose 1 PATCH; Start 08/13/18 at 09:00 Nifedipine (Procardia Xl) 90 mg DAILY PO Last administered on 08/17/18 08:19; Admin Dose 90 MG; Start 08/13/18 at 09:00 Oxcarbazepine (Trileptal) 300 mg BID PO Last administered on 08/17/18 20:18; Ad min Dose 300 MG; Start 08/12/18 at 21:00 Pantoprazole (Protonix Tab) 40 mg BID@0600,1800 PO Last administered on 08/17/18 17:10; Admin Dose 40 MG; Start 08/12/18 at 18:00 Risperidone (Risperdal) 0.25 mg BID PO Last administered on 08/17/18 20:19; Admin Dose 0.25 MG; Start 08/12/18 at 21:00 Ibuprofen (Motrin) 600 mg Q6H PRN PO MILD PAIN LEVEL 1-3 Last administered on 08/17/18 20:22; Admin Dose 600 MG; Start 08/13/18 at 01:00 Vancomycin HCl (Vanco Iv Per Pharmacy) VANCOMYCIN PER PHARMACY PER PROTOCOL XX ; Start 08/14/18 at 15:00 Vancomycin HCl 100 ml @ 100 mls/hr Q24H IVPB Last administered on 08/18/18 02:19; Admin Dose 100 MLS/HR; Start 08/16/18 at 01:00 Cefepime HCl 50 ml @ 100 mls/hr Q24H IVPB Last administered on 08/17/18 20:19; Admin Dose 100 MLS/HR; Start 08/14/18 at 20:00 Morphine Sulfate (morphine) 6 mg Q4H PRN PO SEVERE PAIN LEVEL 7-10; Start 08/15/18 at 16:00 Famotidine (Pepcid) 20 mg DAILY PO Last administered on 08/17/18 08:19; Admin Dose 20 MG; Start 08/16/18 at 09:00 FELIX FERNANDES NP Aug 18, 2018 06:22
[2018-08-18] MEDS: PANTOPRAZOLE (EC) 40 MG TAB PO SCH ×2 (06:24→18:17)
[2018-08-18] MEDS: LEVOTHYROXINE 50 MCG TAB PO SCH (06:24)
[2018-08-18] MEDS: SOD CHLORIDE 0.9% 1,000 ML IV SCH ×2 (07:03→17:41)
[2018-08-18] MEDS: LACOSAMIDE (100 MG/10 ML PO SYR) PO SCH ×2 (08:50→21:23)
[2018-08-18] MEDS: FAMOTIDINE 20 MG TAB PO SCH (08:50)
[2018-08-18] MEDS: OXCARBAZEPINE 300 MG TAB PO SCH ×2 (08:50→21:23)
[2018-08-18] MEDS: RISPERIDONE 0.25 MG TAB PO SCH ×2 (08:51→21:23)
[2018-08-18] MEDS: NIFEdipine (XL) 90 MG TAB PO SCH (08:51)
[2018-08-18] MEDS: LACTOBACILLUS RHAMNOSUS CAP PO SCH ×2 (08:51→21:23)
[2018-08-18] MEDS: LIDOCAINE 5% PATCH TRANSDERM SCH (08:52)
[2018-08-18] MEDS: DICLOFENAC SODIUM 1% GEL 100 GM TUBE TP SCH ×4 (09:00→21:36)
[2018-08-18] MEDS: BALSAM PERU/CASTOR OIL 60 GM TUBE TOP SCH ×2 (09:00→21:36)
--- NOTE | 2018-08-18 12:09 | CONS ---
Assessment/Plan Assessment/Plan Hospital Course (Demo Recall) All noted, no fevers over night, awake, looks comfortable, no fevers WBC scan revealed area of increased activity in the right proximal thigh/right proximal femur; inflammatory/infectious process cannot be ruled out. Antimicrobials: Vanco Cefepime Microbiology: all cx's negative Physical examination: Well-nourished well-developed ill-appearing middle-aged woman in no distress. Head atraumatic normocephalic sclera nonicteric, neck is supple, chest rise symmetrical, breath sounds diminished bases, heart S1-S2, abdomen soft, bowel sounds present, extremities without cyanosis Assessment: 1. Sepsis present on admission 2. Acute encephalopathy 3. S/p E coli ESBL UTI 4. History of CVA 5. Hypertension 6. Seizure disorder 7. Acute possibly on chronic kidney disease Plan: Stable, wbc normalized, continue abx, pending R thigh MRI Consultation Date/Type/Reason Admit Date/Time Aug 12, 2018 at 12:45 Initial Consult Date Type of Consult id Requesting Provider: FELIX FERNANDES NP Date/Time of Note DATE: 08/18/18 TIME: 12:09 Exam/Review of Systems Exam Vitals Vital Signs Date Temp Pulse Resp B/P (MAP) Pulse Ox O2 O2 Flow FiO2 Time Delivery Rate 08/18/18 97.9 82 16 139/65 100 Room Air 07:39 (89) Intake and Output 08/17/18 08/17/18 08/18/18 1515:00 23:00 07:00 IntakeIntake Total 50 ml 1910 ml 525 ml OutputOutput Total 800 ml BalanceBalance 50 ml 1110 ml 525 ml Results Result Diagram: 08/18/18 0755 08/18/18 0755 Results 24hrs Laboratory Tests Test 08/18/18 00:18 08/18/18 07:55 Vancomycin Level Trough 12.5 White Blood Count 8.2 Red Blood Count 3.31 L Hemoglobin 10.1 L Hematocrit 31.6 L Mean Corpuscular Volume 95.5 Mean Corpuscular Hemoglobin 30.5 Mean Corpuscular Hemoglobin Concent 32.0 Red Cell Distribution Width 17.2 H Platelet Count 279 Mean Platelet Volume 9.1 Immature Granulocytes % 2.100 H Neutrophils % 71.9 Lymphocytes % 16.2 Monocytes % 8.5 Eosinophils % 0.9 Basophils % 0.4 Nucleated Red Blood Cells % 0.0 Immature Granulocytes # 0.170 H Neutrophils # 5.9 Lymphocytes # 1.3 Monocytes # 0.7 Eosinophils # 0.1 Basophils # 0.0 Nucleated Red Blood Cells # 0.0 Sodium Level 141 Potassium Level 3.8 Chloride Level 121 H Carbon Dioxide Level 12 L Anion Gap 8 Blood Urea Nitrogen 9 Creatinine 1.05 H Est Glomerular Filtrat Rate mL/min 55 L Glucose Level 76 Calcium Level 8.5 Phosphorus Level 4.0 Magnesium Level 2.2 Medications Medication Current Medications Sodium Chloride 1,000 ml @ 50 mls/hr Q20H IV Last administered on 08/17/18 20:36; Admin Dose 50 MLS/HR; Start 08/12/18 at 13:16 IV Flush (NS 3 ml) 3 ml PER PROTOCOL IV ; Start 08/12/18 at 13:30 Ondansetron HCl (Zofran Inj) 4 mg Q6H PRN IV NAUSEA/VOMITING Last administered on 08/17/18 11:14; Admin Dose 4 MG; Start 08/12/18 at 13:30 Acetaminophen (Tylenol Tab) 650 mg Q6H PRN PO .PAIN 1-3 OR TEMP Last administered on 08/12/18 23:20; Admin Dose 650 MG; Start 08/12/18 at 13:30 Acetaminophen (Tylenol Supp) 650 mg Q6H PRN [place] .PAIN 1-3 OR TEMP; Start 08/12/18 at 13:30 Acetaminophen/ Hydrocodone Bitart ([place] (5/325)) 1 tab Q6H PRN PO .MOD PAIN 4- 6 Last administered on 08/17/18 11:10; Admin Dose 1 TAB; Start 08/12/18 at 13:30 Clonidine HCl (Catapres-Tts 1 Patch) 1 patch Q7D TRANSDERM Last administered on 08/12/18 17:54; Admin Dose 1 PATCH; Start 08/12/18 at 17:00 Enoxaparin Sodium (Lovenox) 40 mg DAILY SC Last administered on 08/15/18 09:58; Admin Dose 40 MG; Start 08/13/18 at 09:00; Status Hold Senna/Docusate Sodium (Senokot-S) 2 tab HS PO Last administered on 08/17/18 20:19; Admin Dose 2 TAB; Start 08/12/18 at 21:00 Diclofenac Sodium (Voltaren 1% Gel) 2 gm QID TP Last administered on 08/18/18 09:00; Admin Dose 2 GM; Start 08/12/18 at 17:00 Lacosamide (Vimpat Liq) 100 mg BID PO Last administered on 08/18/18 08:50; Admin Dose 100 MG; Start 08/12/18 at 21:00 Lactobacillus Acidophilus/ Rhamnosus (Culturelle) 1 cap BID PO Last administered on 08/18/18 08:51; Admin Dose 1 CAP; Start 08/12/18 at 21:00 Levothyroxine Sodium (Synthroid) 50 mcg BEFORE BREAKFAST PO Last administered on 08/18/18 06:24; Admin Dose 50 MCG; Start 08/13/18 at 07:00 Lidocaine (Lidoderm) 1 patch DAILY TRANSDERM Last administered on 08/18/18 08:52; Admin Dose 1 PATCH; Start 08/13/18 at 09:00 Nifedipine (Procardia Xl) 90 mg DAILY PO Last administered on 08/18/18 08:51; Admin Dose 90 MG; Start 08/13/18 at 09:00 Oxcarbazepine (Trileptal) 300 mg BID PO Last administered on 08/18/18 08:50; Admin Dose 300 MG; Start 08/12/18 at 21:00 Pantoprazole (Protonix Tab) 40 mg BID@0600,1800 PO Last administered on 08/18/18 06:24; Admin Dose 40 MG; Start 08/12/18 at 18:00 Risperidone (Risperdal) 0.25 mg BID PO Last administered on 08/18/18 08:51; Admin Dose 0.25 MG; Start 08/12/18 at 21:00 Ibuprofen (Motrin) 600 mg Q6H PRN PO MILD PAIN LEVEL 1-3 Last administered on 08/17/18 20:22; Admin Dose 600 MG; Start 08/13/18 at 01:00 Vancomycin HCl (Vanco Iv Per Pharmacy) VANCOMYCIN PER PHARMACY PER PROTOCOL XX ; Start 08/14/18 at 15:00 Vancomycin HCl 100 ml @ 100 mls/hr Q24H IVPB Last administered on 08/18/18 02:19; Admin Dose 100 MLS/HR; Start 08/16/18 at 01:00 Cefepime HCl 50 ml @ 100 mls/hr Q24H IVPB Last administered on 08/17/18at 20:19; Admin Dose 100 MLS/HR; Start 08/14/18 at 20:00 Morphine Sulfate (morphine) 6 mg Q4H PRN PO SEVERE PAIN LEVEL 7-10; Start 08/15/18 at 16:00 Famotidine (Pepcid) 20 mg DAILY PO Last administered on 08/18/18at 08:50; Admin Dose 20 MG; Start 08/16/18 at 09:00 CAILIN ROBBINS NP Aug 18, 2018 12:09
[2018-08-18] MEDS: IBUPROFEN 600 MG TAB PO PRN (13:48)
--- NOTE | 2018-08-18 15:02 | CONS ---
Assessment/Plan Assessment/Plan Hospital Course 53 F c/ Hx of prior strokes c/b epilepsy...and other comorbidities...who reportedly presents for evaluation of ams. 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 The clinical picture suggests an acute toxic-metabolic encephalopathy.. Recurrent seizure is unlikely.. Recurrent stroke is unlikely.. Head CT is reassuringly without acute intracranial pathology. P: Start low dose asa for secondary stroke prevention when medically able Continued medical management per primary Continue Trileptal 300 mg bid for now; await trileptal level Continue Vimpat 100mg bid for now Reorient as necessary Limit sedating medications where possible PT/OT/ST as necessary Will follow clinically Consultation Date/Type/Reason Admit Date/Time Aug 12, 2018 at 12:45 Type of Consult Neurology Requesting Provider: FELIX FERNANDES NP Date/Time of Note DATE: 08/18/18 TIME: 15:02 24 HR Interval Summary Free Text/Dictation Continues medsurg monitoring. Pt reportedly more confused today. Pt states that she feels somewhat confused today. Exam Vital Signs Vitals Vital Signs Date Temp Pulse Resp B/P (MAP) Pulse Ox O2 O2 Flow FiO2 Time Delivery Rate 08/18/18 97.8 125 18 177/89 98 Room Air 14:00 (118) Intake and Output 08/17/18 08/17/18 08/18/18 1515:00 23:00 07:00 IntakeIntake Total 50 ml 1910 ml 525 ml OutputOutput Total 800 ml BalanceBalance 50 ml 1110 ml 525 ml Exam PE: Gen Appearance: No Apparent Distress HEENT: Normocephalic Cardiovascular: Regular rate Lungs: Clear bilaterally Abdomen: Soft Extremities: Dry NE: The patient was alert though mildly disoriented. Oriented to self, hospital, and situation. Language was normal. Fund of knowledge was limited. Pupils were equal and reactive to light. There was no afferent pupillary defect. Visual craven were normal. Funduscopic examination was limited. Extra-ocular movements were full. Ptosis was absent. There was no nystagmus. Facial sensation was normal. Face was symmetric with normal strength. Hearing was intact. Palate movements were normal. Neck strength was normal. There was normal tongue bulk and speed of movement. Tone was normal. Muscle bulk was normal. I did not see fasciculations. Arms and legs were mildly weak and symmetric. Vibration sensation was normal. Temperature and pinprick sensation was normal. Rapid alternating movements were normal. There was no dysmetria. There was no intention tremor. Gait was deferred due to bedrest. Arm and leg reflexes were 2+ and symmetric. Calloway's sign was absent. Plantar responses were flexor. SID LYNCH NP Aug 18, 2018 15:02
[2018-08-18] MEDS: hydrALAzine 20 MG INJ IV PRN (16:41)
[2018-08-18] MEDS ORDERED: LORAZEPAM 2 MG INJ IV ONE (17:00)
[2018-08-18] MEDS: ACETAMINOPHEN 325 MG TAB PO PRN (19:23)
[2018-08-18] MEDS ORDERED: SOD CHLORIDE 0.9% 500 ML IV ONE ×2 (20:00→22:00)
[2018-08-18] MEDS: SENNA/DOCUSATE NA (8.6MG/50MG) TAB PO SCH (21:23)
[2018-08-18] MEDS: morphine LIQ (10 MG/5 ML) CUP PO PRN (21:25)
[2018-08-18] MEDS: CEFEPIME 1GM/50 ML (PMX) 50 ML IVPB SCH (21:33)
[2018-08-19] MEDS: VANCOMYCIN 500 MG (PMX) 100 ML IVPB SCH (01:24)
[2018-08-19 01:52] VITALS: BP 148/72; PULSE 111; RESP 20
[2018-08-19] MEDS: LEVOTHYROXINE 50 MCG TAB PO SCH (06:06)
[2018-08-19] MEDS: PANTOPRAZOLE (EC) 40 MG TAB PO SCH ×2 (06:06→17:29)
[2018-08-19] MEDS: morphine LIQ (10 MG/5 ML) CUP PO PRN (06:07)
[2018-08-19 07:22] VITALS: BP 177/79; PULSE 110; RESP 22
[2018-08-19] MEDS: ACETAMINOPHEN 325 MG TAB PO PRN ×2 (07:32→14:08)
[2018-08-19] MEDS: hydrALAzine 20 MG INJ IV PRN ×2 (07:32→14:08)
[2018-08-19 08:37] VITALS: BP 128/60; PULSE 107
[2018-08-19] MEDS: LIDOCAINE 5% PATCH TRANSDERM SCH (09:00)
[2018-08-19] MEDS: DICLOFENAC SODIUM 1% GEL 100 GM TUBE TP SCH ×4 (09:00→20:04)
[2018-08-19] MEDS: BALSAM PERU/CASTOR OIL 60 GM TUBE TOP SCH ×2 (09:02→20:04)
[2018-08-19] MEDS: LACOSAMIDE (100 MG/10 ML PO SYR) PO SCH ×2 (11:09→20:03)
[2018-08-19] MEDS: NIFEdipine (XL) 90 MG TAB PO SCH (11:11)
[2018-08-19] MEDS: FAMOTIDINE 20 MG TAB PO SCH (11:11)
[2018-08-19] MEDS: OXCARBAZEPINE 300 MG TAB PO SCH ×2 (11:11→20:03)
[2018-08-19] MEDS: LACTOBACILLUS RHAMNOSUS CAP PO SCH ×2 (11:11→20:03)
[2018-08-19] MEDS: RISPERIDONE 0.25 MG TAB PO SCH ×2 (11:11→21:01)
--- NOTE | 2018-08-19 12:40 | PN ---
Date/Time of Note Date/Time of Note DATE: 08/19/18 TIME: 12:38 Assessment/Plan VTE Prophylaxis Risk score (from Ns)>0 risk: 2 SCD applied (from Ns): No SCD contraindicated: other Pharmacological prophylaxis: LMWH Lines/Catheters IV Catheter Type (from [facility]): Mid Line Urinary Cath still in place: Yes Reason Cath still needed: urinary retention, other (indicate) Assessment/Plan Hospital Course SUBJECTIVE: Patient is more calm and cooperative today. Had febrile episodes early in the morning. Also had a high blood pressure readings. OBJECTIVE: Physical Exam General: Adequately build 53 year-old female lying in bed in no apparent distress. HEENT: Normocephalic, atraumatic. Eyes: Anicteric sclerae, conjunctivae clear. ENT: Nasal septum midline, oral mucosa moist. Neck supple. Respiratory: Bilaterally clear breath sounds. No use of accessory muscles of respiration. No adventitious breath sounds. Cardiovascular: S1, S2 heard. Regular rate and rhythm. Abdomen: Soft and nondistended. Left upper quadrant tenderness. Bowel sounds positive in all 4 quadrants. Genitourinary: Deferred. Extremities: No cyanosis, no clubbing. Right upper extremity edema. Neurologic: The patient is awake and alert. Oriented to self. Flat affect. Skin: Normal skin turgor. No skin rashes. Labs & Vitals per chart ASSESSMENT & PLAN 53-year-old female with comorbidities including hypertension, dyslipidemia, hypothyroidism, chronic kidney disease, GERD, CVA, and chronic pelvic fracture and chronic sub-capital left femoral fracture. The patient was recently discharged from [facility] on 08/10/2018 when she had a E. coli ESBL urinary tract infection. The patient returned back to the emergency room at [facility] on 08/12/2018 because of fevers and bilateral lower extremity edema. The patient was noticed to have leukocytosis with a WBC of 37,000 and febrile illness with underlying tachycardia. Therefore, the patient was admitted to inpatient setting for further treatment and evaluation. 1. Sepsis with leukocytosis, febrile illness, bandemia, and tachycardia, present on admission. -Etiology unclear. -On antimicrobials. -Being followed by infectious diseases. -WBC scan showed area of increased activity in the right proximal thigh/right proximal femur. MRI of the right femur pending. 2. Chronic kidney disease. -Continue to monitor BUN and creatinine closely. 3. Seizure disorder. -Continue Vimpat. 4. 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 -Continue conservative management. -Status post evaluation by orthopedic surgery during her prior visit. 5. Essential hypertension. -Continue antihypertensives. 6. GERD. -Continue H2 receptor blockers.. 7. Chronic encephalopathy. -?Toxic metabolic. -Recent brain CT scan negative. -Neurology following. 8. Dyslipidemia. -Continue statins. 9. Normocytic, normochromic anemia. -Monitor H&H closely. -Status post 1 unit of PRBC transfusion on 08/14/2018. -Stool OBX1 negative. 10. Fluids, electrolytes, and nutrition. -Low-cholesterol diet. 11. DVT prophylaxis. -Subcutaneous Lovenox. 12. Plan. -Monitor leukocytosis. -MRI of the right femur pending. -US of RUE pending. -Await clinical improvement. The patient was seen in collaboration with Dr. Olson. Result Diagram: 08/19/18 0637 08/19/18 0637 Results 24hrs Laboratory Tests Test 08/18/18 20:15 08/19/18 06:37 Lactic Acid Level 1.5 White Blood Count 22.7 #H Red Blood Count 3.45 L Hemoglobin 10.5 L Hematocrit 33.0 L Mean Corpuscular Volume 95.7 Mean Corpuscular Hemoglobin 30.4 Mean Corpuscular Hemoglobin Concent 31.8 L Red Cell Distribution Width 17.3 H Platelet Count 358 # Mean Platelet Volume 9.2 Immature Granulocytes % 1.300 H Neutrophils % 83.6 H Lymphocytes % 8.9 L Monocytes % 5.6 Eosinophils % 0.2 Basophils % 0.4 Nucleated Red Blood Cells % 0.0 Immature Granulocytes # 0.290 H Neutrophils # 19.0 H Lymphocytes # 2.0 Monocytes # 1.3 H Eosinophils # 0.0 Basophils # 0.1 Nucleated Red Blood Cells # 0.0 Sodium Level 141 Potassium Level 3.8 Chloride Level 122 H Carbon Dioxide Level 11 L Anion Gap 8 Blood Urea Nitrogen 7 Creatinine 0.94 Est Glomerular Filtrat Rate mL/min > 60 Glucose Level 85 Calcium Level 8.3 L Phosphorus Level 3.9 Magnesium Level 1.4 L Exam/Review of Systems Exam Vitals Vital Signs Date Temp Pulse Resp B/P (MAP) Pulse Ox O2 O2 Flow FiO2 Time Delivery Rate 08/19/18 98.4 10:10 08/19/18 107 128/60 08:37 (82) 08/19/18 22 100 07:22 08/18/18 Room Air 21:09 Intake and Output 08/18/18 08/18/18 08/19/18 1515:00 23:00 07:00 IntakeIntake Total 118 ml 1325 ml 995 ml OutputOutput Total 1000 ml 1200 ml BalanceBalance 118 ml 325 ml -205 ml Results Results 24hrs Laboratory Tests Test 08/18/18 20:15 08/19/18 06:37 Lactic Acid Level 1.5 White Blood Count 22.7 #H Red Blood Count 3.45 L Hemoglobin 10.5 L Hematocrit 33.0 L Mean Corpuscular Volume 95.7 Mean Corpuscular Hemoglobin 30.4 Mean Corpuscular Hemoglobin Concent 31.8 L Red Cell Distribution Width 17.3 H Platelet Count 358 # Mean Platelet Volume 9.2 Immature Granulocytes % 1.300 H Neutrophils % 83.6 H Lymphocytes % 8.9 L Monocytes % 5.6 Eosinophils % 0.2 Basophils % 0.4 Nucleated Red Blood Cells % 0.0 Immature Granulocytes # 0.290 H Neutrophils # 19.0 H Lymphocytes # 2.0 Monocytes # 1.3 H Eosinophils # 0.0 Basophils # 0.1 Nucleated Red Blood Cells # 0.0 Sodium Level 141 Potassium Level 3.8 Chloride Level 122 H Carbon Dioxide Level 11 L Anion Gap 8 Blood Urea Nitrogen 7 Creatinine 0.94 Est Glomerular Filtrat Rate mL/min > 60 Glucose Level 85 Calcium Level 8.3 L Phosphorus Level 3.9 Magnesium Level 1.4 L Medications Medication Current Medications Sodium Chloride 1,000 ml @ 50 mls/hr Q20H IV Last administered on 08/18/18at 17:41; Admin Dose 50 MLS/HR; Start 08/12/18 at 13:16 IV Flush (NS 3 ml) 3 ml PER PROTOCOL IV ; Start 08/12/18 at 13:30 Ondansetron HCl (Zofran Inj) 4 mg Q6H PRN IV NAUSEA/VOMITING Last administered on 08/17/18at 11:14; Admin Dose 4 MG; Start 08/12/18 at 13:30 Acetaminophen (Tylenol Tab) 650 mg Q6H PRN PO .PAIN 1-3 OR TEMP Last administered on 2/10/19at 07:32; Admin Dose 650 MG; Start 08/12/18 at 13:30 Acetaminophen (Tylenol Supp) 650 mg Q6H PRN [place] .PAIN 1-3 OR TEMP; Start 08/12/18 at 13:30 Acetaminophen/ Hydrocodone Bitart ([place] (5/325)) 1 tab Q6H PRN PO .MOD PAIN 4- 6 Last administered on 08/17/18 11:10; Admin Dose 1 TAB; Start 08/12/18 at 13:30 Clonidine HCl (Catapres-Tts 1 Patch) 1 patch Q7D TRANSDERM Last administered on 08/12/18 17:54; Admin Dose 1 PATCH; Start 08/12/18 at 17:00 Enoxaparin Sodium (Lovenox) 40 mg DAILY SC Last administered on 08/15/18 09:58; Admin Dose 40 MG; Start 08/13/18 at 09:00; Status Hold Senna/Docusate Sodium (Senokot-S) 2 tab HS PO Last administered on 08/18/18 21:23; Admin Dose 2 TAB; Start 08/12/18 at 21:00 Diclofenac Sodium (Voltaren 1% Gel) 2 gm QID TP Last administered on 08/19/18 09:00; Admin Dose 2 GM; Start 08/12/18 at 17:00 Lacosamide (Vimpat Liq) 100 mg BID PO Last administered on 08/19/18 11:09; Admin Dose 100 MG; Start 08/12/18 at 21:00 Lactobacillus Acidophilus/ Rhamnosus (Culturelle) 1 cap BID PO Last administe red on 08/19/18 11:11; Admin Dose 1 CAP; Start 08/12/18 at 21:00 Levothyroxine Sodium (Synthroid) 50 mcg BEFORE BREAKFAST PO Last administered on 08/19/18 06:06; Admin Dose 50 MCG; Start 08/13/18 at 07:00 Lidocaine (Lidoderm) 1 patch DAILY TRANSDERM Last administered on 08/19/18 09:00; Admin Dose 1 PATCH; Start 08/13/18 at 09:00 Nifedipine (Procardia Xl) 90 mg DAILY PO Last administered on 08/19/18 11:11; Admin Dose 90 MG; Start 08/13/18 at 09:00 Oxcarbazepine (Trileptal) 300 mg BID PO Last administered on 08/19/18 11:11; Admin Dose 300 MG; Start 08/12/18 at 21:00 Pantoprazole (Protonix Tab) 40 mg BID@0600,1800 PO Last administered on 08/19/18 06:06; Admin Dose 40 MG; Start 08/12/18 at 18:00 Risperidone (Risperdal) 0.25 mg BID PO Last administered on 08/19/18 11:11; Admin Dose 0.25 MG; Start 08/12/18 at 21:00 Ibuprofen (Motrin) 600 mg Q6H PRN PO MILD PAIN LEVEL 1-3 Last administered on 08/18/18 13:48; Admin Dose 600 MG; Start 08/13/18 at 01:00 Vancomycin HCl (Vanco Iv Per Pharmacy) VANCOMYCIN PER PHARMACY PER PROTOCOL XX ; Start 08/14/18 at 15:00 Vancomycin HCl 100 ml @ 100 mls/hr Q24H IVPB Last administered on 08/19/18 01:24; Admin Dose 100 MLS/HR; Start 08/16/18 at 01:00 Cefepime HCl 50 ml @ 100 mls/hr Q24H IVPB Last administered on 08/18/18 21:33; Admin Dose 100 MLS/HR; Start 08/14/18 at 20:00 Morphine Sulfate (morphine) 6 mg Q4H PRN PO SEVERE PAIN LEVEL 7-10 Last administered on 08/19/18 06:07; Admin Dose 6 MG; Start 08/15/18 at 16:00 Famotidine (Pepcid) 20 mg DAILY PO Last administered on 08/19/18 11:11; Admin Dose 20 MG; Start 08/16/18 at 09:00 Hydralazine HCl (Apresoline) 10 mg Q6H PRN IV SBP>160 Last administered on 08/19/18 07:32; Admin Dose 10 MG; Start 08/18/18 at 17:00 Magnesium Sulfate 3 gm/Dextrose 106 ml @ 35.333 mls/ hr ONCE ONCE IVPB ; St art 08/19/18 at 14:00; Stop 08/19/18 at 16:59 FELIX FERNANDES NP Aug 19, 2018 12:40
[2018-08-19 13:57] VITALS: BP 175/80; PULSE 114; RESP 21
[2018-08-19] MEDS ORDERED: MAGNESIUM SULFATE 3 GM in DEXTROSE 5% 100 ML IVPB ONE (14:00)
[2018-08-19 15:33] VITALS: BP 124/58
[2018-08-19] MEDS: CLONIDINE 0.1 MG/24 HR PATCH TRANSDERM SCH (17:33)
[2018-08-19 19:16] VITALS: BP 129/60; PULSE 105; RESP 16
--- NOTE | 2018-08-19 19:27 | CONS ---
Assessment/Plan Assessment/Plan Hospital Course (Demo Recall) Patient had been spiking fevers the latest one is 100 the highest one is 102.1. She is also tachycardic and had been hypertensive, currently sleeping, blood cultures were sent. WBC 22.7 H&H 10.5 and 33 platelets 358 neutrophils 83.6 BUN 7 creatinine 0.94 Microbiology: All cultures since admission had been negative WBC scan revealed area of increased activity in the right proximal thigh/right proximal femur; inflammatory/infectious process cannot be ruled out. Antimicrobials: Vanco Cefepime Physical examination: Well-nourished well-developed ill-appearing middle-aged woman in no distress. Head atraumatic normocephalic sclera nonicteric, neck is supple, chest rise symmetrical, breath sounds diminished bases, heart S1-S2, abdomen soft, bowel sounds present, extremities without cyanosis Assessment: 1. Sepsis, ongoing==> present on admission 2. Acute encephalopathy 3. S/p E coli ESBL UTI 4. History of CVA 5. Hypertension 6. Seizure disorder 7. Acute possibly on chronic kidney disease Plan: Patient is doing worse today, blood cultures were sent results pending, MRI of right thigh pending, continue abx, follow labs and chest x-ray in a.m. Consultation Date/Type/Reason Admit Date/Time Aug 12, 2018 at 12:45 Initial Consult Date Type of Consult id Requesting Provider: FELIX FERNANDES NP Date/Time of Note DATE: 08/19/18 TIME: 19:25 Exam/Review of Systems Exam Vitals Vital Signs Date Temp Pulse Resp B/P (MAP) Pulse Ox O2 O2 Flow FiO2 Time Delivery Rate 08/19/18 98.3 105 16 129/60 100 19:16 (83) 08/18/18 Room Air 21:09 Intake and Output 08/18/18 08/18/18 08/19/18 1515:00 23:00 07:00 IntakeIntake Total 118 ml 1325 ml 995 ml OutputOutput Total 1000 ml 1200 ml BalanceBalance 118 ml 325 ml -205 ml Results Result Diagram: 08/19/1837 08/19/18 0637 Results 24hrs Laboratory Tests Test 08/18/18 20:15 08/19/18 06:37 Lactic Acid Level 1.5 White Blood Count 22.7 #H Red Blood Count 3.45 L Hemoglobin 10.5 L Hematocrit 33.0 L Mean Corpuscular Volume 95.7 Mean Corpuscular Hemoglobin 30.4 Mean Corpuscular Hemoglobin Concent 31.8 L Red Cell Distribution Width 17.3 H Platelet Count 358 # Mean Platelet Volume 9.2 Immature Granulocytes % 1.300 H Neutrophils % 83.6 H Lymphocytes % 8.9 L Monocytes % 5.6 Eosinophils % 0.2 Basophils % 0.4 Nucleated Red Blood Cells % 0.0 Immature Granulocytes # 0.290 H Neutrophils # 19.0 H Lymphocytes # 2.0 Monocytes # 1.3 H Eosinophils # 0.0 Basophils # 0.1 Nucleated Red Blood Cells # 0.0 Sodium Level 141 Potassium Level 3.8 Chloride Level 122 H Carbon Dioxide Level 11 L Anion Gap 8 Blood Urea Nitrogen 7 Creatinine 0.94 Est Glomerular Filtrat Rate mL/min > 60 Glucose Level 85 Calcium Level 8.3 L Phosphorus Level 3.9 Magnesium Level 1.4 L Medications Medication Current Medications Sodium Chloride 1,000 ml @ 50 mls/hr Q20H IV Last administered on 08/18/18 17:41; Admin Dose 50 MLS/HR; Start 08/12/18 at 13:16 IV Flush (NS 3 ml) 3 ml PER PROTOCOL IV ; Start 08/12/18 at 13:30 Ondansetron HCl (Zofran Inj) 4 mg Q6H PRN IV NAUSEA/VOMITING Last administered on 08/17/18 11:14; Admin Dose 4 MG; Start 08/12/18 at 13:30 Acetaminophen (Tylenol Tab) 650 mg Q6H PRN PO .PAIN 1-3 OR TEMP Last admin istered on 08/19/18 14:08; Admin Dose 650 MG; Start 08/12/18 at 13:30 Acetaminophen (Tylenol Supp) 650 mg Q6H PRN [place] .PAIN 1-3 OR TEMP; Start 08/12/18 at 13:30 Acetaminophen/ Hydrocodone Bitart ([place] (5/325)) 1 tab Q6H PRN PO .MOD PAIN 4- 6 Last administered on 08/17/18 11:10; Admin Dose 1 TAB; Start 08/12/18 at 13:30 Clonidine HCl (Catapres-Tts 1 Patch) 1 patch Q7D TRANSDERM Last administered on 08/19/18 17:33; Admin Dose 1 PATCH; Start 08/12/18 at 17:00 Enoxaparin Sodium (Lovenox) 40 mg DAILY SC Last administered on 08/15/18 09:58; Admin Dose 40 MG; Start 08/13/18 at 09:00 Senna/Docusate Sodium (Senokot-S) 2 tab HS PO Last administered on 08/18/18 21:23; Admin Dose 2 TAB; Start 08/12/18 at 21:00 Diclofenac Sodium (Voltaren 1% Gel) 2 gm QID TP Last administered on 08/19/18 17:35; Admin Dose 2 GM; Start 08/12/18 at 17:00 Lacosamide (Vimpat Liq) 100 mg BID PO Last administered on 08/19/18 11:09; Admin Dose 100 MG; Start 08/12/18 at 21:00 Lactobacillus Acidophilus/ Rhamnosus (Culturelle) 1 cap BID PO Last administered on 08/19/18 11:11; Admin Dose 1 CAP; Start 08/12/18 at 21:00 Levothyroxine Sodium (Synthroid) 50 mcg BEFORE BREAKFAST PO Last administered on 08/19/18 06:06; Admin Dose 50 MCG; Start 08/13/18 at 07:00 Lidocaine (Lidoderm) 1 patch DAILY TRANSDERM Last administered on 08/19/18 09:00; Admin Dose 1 PATCH; Start 08/13/18 at 09:00 Nifedipine (Procardia Xl) 90 mg DAILY PO Last administered on 08/19/18 11:11; Admin Dose 90 MG; Start 08/13/18 at 09:00 Oxcarbazepine (Trileptal) 300 mg BID PO Last administered on 08/19/18 11:11; Admin Dose 300 MG; Start 08/12/18 at 21:00 Pantoprazole (Protonix Tab) 40 mg BID@0600,1800 PO Last administered on 08/19/18 17:29; Admin Dose 40 MG; Start 08/12/18 at 18:00 Risperidone (Risperdal) 0.25 mg BID PO Last administered on 08/19/18 11:11; Admin Dose 0.25 MG; Start 08/12/18 at 21:00 Ibuprofen (Motrin) 600 mg Q6H PRN PO MILD PAIN LEVEL 1-3 Last administered on 08/18/18at 13:48; Admin Dose 600 MG; Start 08/13/18 at 01:00 Vancomycin HCl (Vanco Iv Per Pharmacy) VANCOMYCIN PER PHARMACY PER PROTOCOL XX ; Start 08/14/18 at 15:00 Vancomycin HCl 100 ml @ 100 mls/hr Q24H IVPB Last administered on 08/19/18at 01:24; Admin Dose 100 MLS/HR; Start 08/16/18 at 01:00 Cefepime HCl 50 ml @ 100 mls/hr Q24H IVPB Last administered on 08/18/18at 21:33; Admin Dose 100 MLS/HR; Start 08/14/18 at 20:00 Morphine Sulfate (morphine) 6 mg Q4H PRN PO SEVERE PAIN LEVEL 7-10 Last administered on 08/19/18 06:07; Admin Dose 6 MG; Start 08/15/18 at 16:00 Famotidine (Pepcid) 20 mg DAILY PO Last administered on 08/19/18 11:11; Admin Dose 20 MG; Start 08/16/18 at 09:00 Hydralazine HCl (Apresoline) 10 mg Q6H PRN IV SBP>160 Last administered on 08/19at 14:08; Admin Dose 10 MG; Start 08/18/18 at 17:00 CAILIN ROBBINS NP Aug 19, 2018 19:27
[2018-08-19] MEDS: SENNA/DOCUSATE NA (8.6MG/50MG) TAB PO SCH (20:03)
[2018-08-19] MEDS: CEFEPIME 1GM/50 ML (PMX) 50 ML IVPB SCH (20:03)
[2018-08-19] MEDS: SOD CHLORIDE 0.9% 1,000 ML IV SCH (21:02)
[2018-08-20] MEDS: morphine LIQ (10 MG/5 ML) CUP PO PRN (00:50)
[2018-08-20] MEDS: VANCOMYCIN 500 MG (PMX) 100 ML IVPB SCH (01:09)
[2018-08-20 01:25] VITALS: BP 131/61; PULSE 110; RESP 18
[2018-08-20] MEDS: LEVOTHYROXINE 50 MCG TAB PO SCH (06:16)
[2018-08-20] MEDS: PANTOPRAZOLE (EC) 40 MG TAB PO SCH ×2 (06:16→17:56)
[2018-08-20 07:37] VITALS: BP 165/63; PULSE 98; RESP 18
[2018-08-20] MEDS: FAMOTIDINE 20 MG TAB PO SCH (09:52)
[2018-08-20] MEDS: RISPERIDONE 0.25 MG TAB PO SCH ×2 (09:52→20:17)
[2018-08-20] MEDS: NIFEdipine (XL) 90 MG TAB PO SCH (09:52)
[2018-08-20] MEDS: LACTOBACILLUS RHAMNOSUS CAP PO SCH ×2 (09:52→20:17)
[2018-08-20] MEDS: OXCARBAZEPINE 300 MG TAB PO SCH ×2 (09:53→20:16)
[2018-08-20] MEDS: LACOSAMIDE (100 MG/10 ML PO SYR) PO SCH ×2 (09:53→20:17)
[2018-08-20] MEDS: BALSAM PERU/CASTOR OIL 60 GM TUBE TOP SCH ×2 (09:54→20:17)
[2018-08-20] MEDS: DICLOFENAC SODIUM 1% GEL 100 GM TUBE TP SCH ×4 (09:54→20:17)
[2018-08-20] MEDS: LIDOCAINE 5% PATCH TRANSDERM SCH (09:55)
[2018-08-20] MEDS: ENOXAPARIN 40 MG/0.4 ML SYG SC SCH (09:57)
--- NOTE | 2018-08-20 11:57 | CONS ---
Assessment/Plan Assessment/Plan Hospital Course (Demo Recall) No acute events overnight patient complains of right upper extremity pain she still has low-grade fevers. WBC 22.8 neutrophils 81.7 BUN 8 creatinine 0.89 Microbiology: All cultures negative Chest x-ray this morning revealed no acute airspace infiltrates. Right upper extremity ultrasound revealed no DVT WBC scan revealed area of increased activity in the right proximal thigh/right proximal femur; inflammatory/infectious process cannot be ruled out. Antimicrobials: Vanco Cefepime Physical examination: Well-nourished well-developed ill-appearing middle-aged woman in no distress. Head atraumatic normocephalic sclera nonicteric, neck is supple, chest rise symmetrical, breath sounds diminished bases, heart S1-S2, abdomen soft, bowel sounds present, right upper extremity is swollen hot and painful to touch Assessment: 1. Sepsis, ongoing==> present on admission 2. Acute encephalopathy 3. Right upper extremity cellulitis 3. S/p E coli ESBL UTI 4. History of CVA 5. Hypertension 6. Seizure disorder 7. Acute possibly on chronic kidney disease Plan: Remains unchanged, continue antibiotics, await for right thigh MRI, consider CT of right upper extremity Consultation Date/Type/Reason Admit Date/Time Aug 12, 2018 at 12:45 Initial Consult Date Type of Consult id Requesting Provider: FELIX FERNANDES NP Date/Time of Note DATE: 08/20/18 TIME: 11:55 Exam/Review of Systems Exam Vitals Vital Signs Date Temp Pulse Resp B/P (MAP) Pulse Ox O2 O2 Flow FiO2 Time Delivery Rate 08/20/18 98.0 98 18 165/63 100 07:37 (97) 08/18/18 Room Air 21:09 Intake and Output 08/19/18 08/19/18 08/20/18 1515:00 23:00 07:00 IntakeIntake Total 400 ml 895 ml 500 ml OutputOutput Total 1100 ml 400 ml BalanceBalance 400 ml -205 ml 100 ml Results Result Diagram: 08/20/18 0545 08/20/18 0545 Results 24hrs Laboratory Tests Test 08/20/18 05:45 White Blood Count 22.8 H Red Blood Count 2.80 L Hemoglobin 8.9 L Hematocrit 26.5 L Mean Corpuscular Volume 94.6 Mean Corpuscular Hemoglobin 31.8 Mean Corpuscular Hemoglobin Concent 33.6 Red Cell Distribution Width 17.2 H Platelet Count 359 Mean Platelet Volume 9.2 Immature Granulocytes % 1.700 H Neutrophils % 81.7 H Lymphocytes % 11.0 L Monocytes % 4.9 Eosinophils % 0.3 Basophils % 0.4 Nucleated Red Blood Cells % 0.0 Immature Granulocytes # 0.380 H Neutrophils # 18.7 H Lymphocytes # 2.5 Monocytes # 1.1 H Eosinophils # 0.1 Basophils # 0.1 Nucleated Red Blood Cells # 0.0 Sodium Level 140 Potassium Level 3.5 Chloride Level 120 H Carbon Dioxide Level 12 L Anion Gap 8 Blood Urea Nitrogen 8 Creatinine 0.89 Est Glomerular Filtrat Rate mL/min > 60 Glucose Level 81 Calcium Level 8.1 L Phosphorus Level 4.5 Magnesium Level 2.5 # Medications Medication Current Medications Sodium Chloride 1,000 ml @ 50 mls/hr Q20H IV Last administered on 08/19/18 21:02; Admin Dose 50 MLS/HR; Start 08/12/18 at 13:16 IV Flush (NS 3 ml) 3 ml PER PROTOCOL IV ; Start 08/12/18 at 13:30 Ondansetron HCl (Zofran Inj) 4 mg Q6H PRN IV NAUSEA/VOMITING Last administered on 08/17/18 11:14; Admin Dose 4 MG; Start 08/12/18 at 13:30 Acetaminophen (Tylenol Tab) 650 mg Q6H PRN PO .PAIN 1-3 OR TEMP Last administered on 08/19/18 14:08; Admin Dose 650 MG; Start 08/12/18 at 13:30 Acetaminophen (Tylenol Supp) 650 mg Q6H PRN [place] .PAIN 1-3 OR TEMP; Start 08/12/18 at 13:30 Acetaminophen/ Hydrocodone Bitart ([place] (5/325)) 1 tab Q6H PRN PO .MOD PAIN 4- 6 Last administered on 08/17/18 11:10; Admin Dose 1 TAB; Start 08/12/18 at 13:30 Clonidine HCl (Catapres-Tts 1 Patch) 1 patch Q7D TRANSDERM Last administered on 08/19/18 17:33; Admin Dose 1 PATCH; Start 08/12/18 at 17:00 Enoxaparin Sodium (Lovenox) 40 mg DAILY SC Last administered on 08/20/18 09:57; Admin Dose 40 MG; Start 08/13/18 at 09:00 Senna/Docusate Sodium (Senokot-S) 2 tab HS PO Last administered on 08/19/18 20:03; Admin Dose 2 TAB; Start 08/12/18 at 21:00 Diclofenac Sodium (Voltaren 1% Gel) 2 gm QID TP Last administered on 08/20/18 09:54; Admin Dose 2 GM; Start 08/12/18 at 17:00 Lacosamide (Vimpat Liq) 100 mg BID PO Last administered on 08/20/18 09:53; Admin Dose 100 MG; Start 08/12/18 at 21:00 Lactobacillus Acidophilus/ Rhamnosus (Culturelle) 1 cap BID PO Last administered on 08/20/18 09:52; Admin Dose 1 CAP; Start 08/12/18 at 21:00 Levothyroxine Sodium (Synthroid) 50 mcg BEFORE BREAKFAST PO Last administered on 08/20/18 06:16; Admin Dose 50 MCG; Start 08/13/18 at 07:00 Lidocaine (Lidoderm) 1 patch DAILY TRANSDERM Last administered on 08/20/18 09:55; Admin Dose 1 PATCH; Start 08/13/18 at 09:00 Nifedipine (Procardia Xl) 90 mg DAILY PO Last administered on 08/20/18 09:52; Admin Dose 90 MG; Start 08/13/18 at 09:00 Oxcarbazepine (Trileptal) 300 mg BID PO Last administered on 08/20/18 09:53; Admin Dose 300 MG; Start 08/12/18 at 21:00 Pantoprazole (Protonix Tab) 40 mg BID@0600,1800 PO Last administered on 08/20/18 06:16; Admin Dose 40 MG; Start 08/12/18 at 18:00 Risperidone (Risperdal) 0.25 mg BID PO Last administered on 08/20/18 09:52; Admin Dose 0.25 MG; Start 08/12/18 at 21:00 Ibuprofen (Motrin) 600 mg Q6H PRN PO MILD PAIN LEVEL 1-3 Last administered on 08/18/18 13:48; Admin Dose 600 MG; Start 08/13/18 at 01:00 Vancomycin HCl (Vanco Iv Per Pharmacy) VANCOMYCIN PER PHARMACY PER PROTOCOL XX ; Start 08/14/18 at 15:00 Vancomycin HCl 100 ml @ 100 mls/hr Q24H IVPB Last administered on 08/20/18at 01:09; Admin Dose 100 MLS/HR; Start 08/16/18 at 01:00 Cefepime HCl 50 ml @ 100 mls/hr Q24H IVPB Last administered on 08/19/18at 20:03; Admin Dose 100 MLS/HR; Start 08/14/18 at 20:00 Morphine Sulfate (morphine) 6 mg Q4H PRN PO SEVERE PAIN LEVEL 7-10 Last administered on 08/20/18at 00:50; Admin Dose 6 MG; Start 08/15/18 at 16:00 Famotidine (Pepcid) 20 mg DAILY PO Last administered on 08/20/18at 09:52; Admin Dose 20 MG; Start 08/16/18 at 09:00 Hydralazine HCl (Apresoline) 10 mg Q6H PRN IV SBP>160 Last administered on 08/19/18at 14:08; Admin Dose 10 MG; Start 08/18/18 at 17:00 CAILIN ROBBINS NP Aug 20, 2018 11:57
[2018-08-20] MEDS: IBUPROFEN 600 MG TAB PO PRN (13:32)
--- NOTE | 2018-08-20 13:34 | CONS ---
Assessment/Plan Assessment/Plan Hospital Course 53 F c/ Hx of prior strokes c/b epilepsy...and other comorbidities...who reportedly presents for evaluation of ams. 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 The clinical picture suggests an acute toxic-metabolic encephalopathy.. Recurrent seizure is unlikely.. Recurrent stroke is unlikely.. Head CT is reassuringly without acute intracranial pathology. P: Start low dose asa for secondary stroke prevention when medically able Continued medical management per primary Continue Trileptal 300 mg bid for now; repeat trileptal level Continue Vimpat 100mg bid for now Reorient as necessary Limit sedating medications where possible PT/OT/ST as necessary Will follow clinically Consultation Date/Type/Reason Admit Date/Time Aug 12, 2018 at 12:45 Type of Consult Neurology Reason for Consultation ams Requesting Provider: FELIX FERNANDES NP Date/Time of Note DATE: 08/20/18 TIME: 13:33 24 HR Interval Summary Free Text/Dictation Continues acute care Exam Vital Signs Vitals Vital Signs Date Temp Pulse Resp B/P (MAP) Pulse Ox O2 O2 Flow FiO2 Time Delivery Rate 08/20/18 98.0 98 18 165/63 100 07:37 (97) 08/18/18 Room Air 21:09 Intake and Output 08/19/18 08/19/18 08/20/18 1515:00 23:00 07:00 IntakeIntake Total 400 ml 895 ml 500 ml OutputOutput Total 1100 ml 400 ml BalanceBalance 400 ml -205 ml 100 ml Exam Comprehensive completed; stable from prior. PATRIC LAWLER Aug 20, 2018 13:34
[2018-08-20 13:55] VITALS: BP 145/68; PULSE 112; RESP 18
[2018-08-20 15:18] VITALS: PULSE 92
[2018-08-20 19:13] VITALS: BP 123/58; PULSE 88; RESP 16
--- NOTE | 2018-08-20 19:35 | PN ---
Date/Time of Note Date/Time of Note DATE: 08/20/18 TIME: 19:32 Assessment/Plan VTE Prophylaxis Risk score (from [facility])>0 risk: 4 SCD applied (from [facility]): No SCD contraindicated: low risk/ambulating Pharmacological prophylaxis: NA/contraindicated, LMWH Pharm contraindication: low risk/ambulating Lines/Catheters IV Catheter Type (from [facility]): Mid Line Urinary Cath still in place: Yes Reason Cath still needed: urinary retention Assessment/Plan Hospital Course A/P 1. Fever with leukocytosis r/o sepsis. [Await urine blood culture skin, consider om/ discitis]. Probable Sirs due to pelvic fracture pain. 2. Subacute pelvic fracture 3. Subacute left hip fracture on conservative management may need orthopedic surgery 4. Adrenal insufficiency 5. Hypothyroidism 6. 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 stable for re- eval as outpatient. 9. Nonadherence to meds, for her endocrine processes. Presently excepting replacement therapy. 10. History of stroke 11. History of seizures? 12. Chr hallucinations for many months possible acute psychosis vs delirium. 13. Recent ESBL cystitis s/p Levaquin. 14. Ckd III 15. Dyslipidemia 16. Hypertension 17. Constipation 18. Mechanical fall fractures a few months back 19. Left femur subcapital fracture, subacute. On conservative management treat pain PT probably nonweightbearing. 20. Left pelvic fracture, subacute 21. L4 fracture 22. Secondary osteoporosis? 23. RUE cellulitis; ro abscess S: Rt arm pain O: Vss PE No pallor reg ctab bs+ nt nd; no r r g hypotonia? Rue- warmth/ tender/ dimin rom at elbow Result Diagram: 08/20/18 0545 08/20/18 0545 Results 24hrs Laboratory Tests Test 08/20/18 05:45 White Blood Count 22.8 H Red Blood Count 2.80 L Hemoglobin 8.9 L Hematocrit 26.5 L Mean Corpuscular Volume 94.6 Mean Corpuscular Hemoglobin 31.8 Mean Corpuscular Hemoglobin Concent 33.6 Red Cell Distribution Width 17.2 H Platelet Count 359 Mean Platelet Volume 9.2 Immature Granulocytes % 1.700 H Neutrophils % 81.7 H Lymphocytes % 11.0 L Monocytes % 4.9 Eosinophils % 0.3 Basophils % 0.4 Nucleated Red Blood Cells % 0.0 Immature Granulocytes # 0.380 H Neutrophils # 18.7 H Lymphocytes # 2.5 Monocytes # 1.1 H Eosinophils # 0.1 Basophils # 0.1 Nucleated Red Blood Cells # 0.0 Sodium Level 140 Potassium Level 3.5 Chloride Level 120 H Carbon Dioxide Level 12 L Anion Gap 8 Blood Urea Nitrogen 8 Creatinine 0.89 Est Glomerular Filtrat Rate mL/min > 60 Glucose Level 81 Calcium Level 8.1 L Phosphorus Level 4.5 Magnesium Level 2.5 # Exam/Review of Systems Exam Vitals Vital Signs Date Temp Pulse Resp B/P (MAP) Pulse Ox O2 O2 Flow FiO2 Time Delivery Rate 08/20/18 98.2 88 16 123/58 98 19:13 (79) 08/18/18 Room Air 21:09 Intake and Output 08/19/18 08/19/18 08/20/18 1515:00 23:00 07:00 IntakeIntake Total 400 ml 895 ml 500 ml OutputOutput Total 1100 ml 400 ml BalanceBalance 400 ml -205 ml 100 ml Results Results 24hrs Laboratory Tests Test 08/20/18 05:45 White Blood Count 22.8 H Red Blood Count 2.80 L Hemoglobin 8.9 L Hematocrit 26.5 L Mean Corpuscular Volume 94.6 Mean Corpuscular Hemoglobin 31.8 Mean Corpuscular Hemoglobin Concent 33.6 Red Cell Distribution Width 17.2 H Platelet Count 359 Mean Platelet Volume 9.2 Immature Granulocytes % 1.700 H Neutrophils % 81.7 H Lymphocytes % 11.0 L Monocytes % 4.9 Eosinophils % 0.3 Basophils % 0.4 Nucleated Red Blood Cells % 0.0 Immature Granulocytes # 0.380 H Neutrophils # 18.7 H Lymphocytes # 2.5 Monocytes # 1.1 H Eosinophils # 0.1 Basophils # 0.1 Nucleated Red Blood Cells # 0.0 Sodium Level 140 Potassium Level 3.5 Chloride Level 120 H Carbon Dioxide Level 12 L Anion Gap 8 Blood Urea Nitrogen 8 Creatinine 0.89 Est Glomerular Filtrat Rate mL/min > 60 Glucose Level 81 Calcium Level 8.1 L Phosphorus Level 4.5 Magnesium Level 2.5 # Medications Medication Current Medications Sodium Chloride 1,000 ml @ 50 mls/hr Q20H IV Last administered on 08/19/18 21:02; Admin Dose 50 MLS/HR; Start 08/12/18 at 13:16 IV Flush (NS 3 ml) 3 ml PER PROTOCOL IV ; Start 08/12/18 at 13:30 Ondansetron HCl (Zofran Inj) 4 mg Q6H PRN IV NAUSEA/VOMITING Last administered on 08/17/18 11:14; Admin Dose 4 MG; Start 08/12/18 at 13:30 Acetaminophen (Tylenol Tab) 650 mg Q6H PRN PO .PAIN 1-3 OR TEMP Last administered on 08/19/18 14:08; Admin Dose 650 MG; Start 08/12/18 at 13:30 Acetaminophen (Tylenol Supp) 650 mg Q6H PRN MO .PAIN 1-3 OR TEMP; Start 08/12/18 at 13:30 Acetaminophen/ Hydrocodone Bitart ([place] (5/325)) 1 tab Q6H PRN PO .MOD PAIN 4- 6 Last administered on 08/17/18 11:10; Admin Dose 1 TAB; Start 08/12/18 at 13:30 Clonidine HCl (Catapres-Tts 1 Patch) 1 patch Q7D TRANSDERM Last administered on 08/19/18 17:33; Admin Dose 1 PATCH; Start 08/12/18 at 17:00 Enoxaparin Sodium (Lovenox) 40 mg DAILY SC Last administered on 08/20/18 09:57; Admin Dose 40 MG; Start 08/13/18 at 09:00 Senna/Docusate Sodium (Senokot-S) 2 tab HS PO Last administered on 08/19/18 20:03; Admin Dose 2 TAB; Start 08/12/18 at 21:00 Diclofenac Sodium (Voltaren 1% Gel) 2 gm QID TP Last administered on 08/20/18 17:54; Admin Dose 2 GM; Start 08/12/18 at 17:00 Lacosamide (Vimpat Liq) 100 mg BID PO Last administered on 08/20/18 09:53; Ad min Dose 100 MG; Start 08/12/18 at 21:00 Lactobacillus Acidophilus/ Rhamnosus (Culturelle) 1 cap BID PO Last administered on 08/20/18 09:52; Admin Dose 1 CAP; Start 08/12/18 at 21:00 Levothyroxine Sodium (Synthroid) 50 mcg BEFORE BREAKFAST PO Last administered on 08/20/18 06:16; Admin Dose 50 MCG; Start 08/13/18 at 07:00 Lidocaine (Lidoderm) 1 patch DAILY TRANSDERM Last administered on 08/20/18 09:55; Admin Dose 1 PATCH; Start 08/13/18 at 09:00 Nifedipine (Procardia Xl) 90 mg DAILY PO Last administered on 08/20/18 09:52; Admin Dose 90 MG; Start 08/13/18 at 09:00 Oxcarbazepine (Trileptal) 300 mg BID PO Last administered on 08/20/18 09:53; Admin Dose 300 MG; Start 08/12/18 at 21:00 Pantoprazole (Protonix Tab) 40 mg BID@0600,1800 PO Last administered on 08/20/18 17:56; Admin Dose 40 MG; Start 08/12/18 at 18:00 Risperidone (Risperdal) 0.25 mg BID PO Last administered on 08/20/18 09:52; Admin Dose 0.25 MG; Start 08/12/18 at 21:00 Ibuprofen (Motrin) 600 mg Q6H PRN PO MILD PAIN LEVEL 1-3 Last administered on 08/20/18 13:32; Admin Dose 600 MG; Start 08/13/18 at 01:00 Vancomycin HCl (Vanco Iv Per Pharmacy) VANCOMYCIN PER PHARMACY PER PROTOCOL XX ; Start 08/14/18 at 15:00 Vancomycin HCl 100 ml @ 100 mls/hr Q24H IVPB Last administered on 08/20/18 01:09; Admin Dose 100 MLS/HR; Start 08/16/18 at 01:00 Cefepime HCl 50 ml @ 100 mls/hr Q24H IVPB Last administered on 08/19/18 20:03; Admin Dose 100 MLS/HR; Start 08/14/18 at 20:00 Morphine Sulfate (morphine) 6 mg Q4H PRN PO SEVERE PAIN LEVEL 7-10 Last administered on 08/20/18 00:50; Admin Dose 6 MG; Start 08/15/18 at 16:00 Famotidine (Pepcid) 20 mg DAILY PO Last administered on 08/20/18 09:52; Admin Dose 20 MG; Start 08/16/18 at 09:00 Hydralazine HCl (Apresoline) 10 mg Q6H PRN IV SBP>160 Last administered on 08/19/18at 14:08; Admin Dose 10 MG; Start 08/18/18 at 17:00 ANALISA MOSS MD Aug 20, 2018 19:35
[2018-08-20] MEDS: SENNA/DOCUSATE NA (8.6MG/50MG) TAB PO SCH (20:17)
[2018-08-20] MEDS: SOD CHLORIDE 0.9% 1,000 ML IV SCH (20:55)
[2018-08-20] MEDS: CEFEPIME 1GM/50 ML (PMX) 50 ML IVPB SCH (20:55)
[2018-08-21] MEDS: VANCOMYCIN 500 MG (PMX) 100 ML IVPB SCH (00:52)
[2018-08-21 02:16] VITALS: BP 142/65; PULSE 89; RESP 16
[2018-08-21] MEDS: PANTOPRAZOLE (EC) 40 MG TAB PO SCH ×2 (06:11→17:25)
[2018-08-21] MEDS: LEVOTHYROXINE 50 MCG TAB PO SCH (06:11)
[2018-08-21 08:00] VITALS: BP 148/72; PULSE 89; RESP 16
[2018-08-21] MEDS: RISPERIDONE 0.25 MG TAB PO SCH ×2 (08:46→20:28)
[2018-08-21] MEDS: LACTOBACILLUS RHAMNOSUS CAP PO SCH ×2 (08:46→20:29)
[2018-08-21] MEDS: LACOSAMIDE (100 MG/10 ML PO SYR) PO SCH ×2 (08:46→20:29)
[2018-08-21] MEDS: HYDROCODONE/APAP (5/325) TAB PO PRN (08:46)
[2018-08-21] MEDS: FAMOTIDINE 20 MG TAB PO SCH (08:46)
[2018-08-21] MEDS: OXCARBAZEPINE 300 MG TAB PO SCH ×2 (08:46→20:28)
[2018-08-21] MEDS: LIDOCAINE 5% PATCH TRANSDERM SCH (08:47)
[2018-08-21] MEDS: DICLOFENAC SODIUM 1% GEL 100 GM TUBE TP SCH ×4 (08:47→20:30)
[2018-08-21] MEDS: NIFEdipine (XL) 90 MG TAB PO SCH (08:47)
[2018-08-21] MEDS: BALSAM PERU/CASTOR OIL 60 GM TUBE TOP SCH ×2 (08:47→20:30)
[2018-08-21] MEDS: ENOXAPARIN 40 MG/0.4 ML SYG SC SCH (08:48)
[2018-08-21] MEDS ORDERED: IODIXANOL LOCM 100 ML BTL ONE (10:24)
[2018-08-21] MEDS ORDERED: SOD CHLORIDE 0.9% 100 ML ONE (10:24)
--- NOTE | 2018-08-21 11:40 | PN ---
Date/Time of Note Date/Time of Note DATE: 08/21/18 TIME: 11:35 Assessment/Plan VTE Prophylaxis Risk score (from [facility])>0 risk: 2 SCD applied (from [facility]): No SCD contraindicated: low risk/ambulating Pharmacological prophylaxis: LMWH Lines/Catheters IV Catheter Type (from [facility]): Mid Line Urinary Cath still in place: Yes Reason Cath still needed: urinary retention Assessment/Plan Hospital Course A/P 1. Sirs [Await urine/ bl culture, consider om/ discitis]. Additionally Sirs due to pelvic fracture/ pain. rt vastus lateralis possible small abscess, for antibiotics. consider MRI w contrast rt thigh. post traumatic low grade strain, rt obturator externus & obturator internus, for conservative mngmnt. 2. Subacute pelvic fracture 3. Subacute left hip fracture on conservative management; sp ortho consult 4. Adrenal insufficiency 5. Hypothyroidism 6. 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 stable for re-eval as outpatient. 9. Nonadherence to meds, for her endocrine processes. Presently excepting replacement therapy. 10. History of stroke 11. History of seizures? 12. Chr hallucinations for many months possible acute psychosis vs delirium. 13. Recent ESBL cystitis s/p Levaquin. 14. Ckd III 15. Dyslipidemia 16. Hypertension 17. Constipation 18. Mechanical fall fractures a few months back 19. Left femur subcapital fracture, subacute. On conservative management treat pain PT probably nwb. 20. Left pelvic fracture, subacute 21. L4 fracture 22. Secondary osteoporosis? 23. RUE cellulitis; ro abscess., ct pending. no dvt. 24. Ftt, consider snf. Last time patient was unable to be at home for more than 48 hours. S: 08/20 rt arm pain 08/21 less distress. Less edema pain of right upper extremity. No diarrhea. O: Vss PE No pallor reg ctab bs+ nt nd; no r r g hypotonia? Rue: less warmth/ edema around elbow Result Diagram: 08/21/18 0803 08/21/18 0803 Results 24hrs Laboratory Tests Test 08/21/18 08:03 White Blood Count 17.9 #H Red Blood Count 2.99 L Hemoglobin 9.2 L Hematocrit 28.2 L Mean Corpuscular Volume 94.3 Mean Corpuscular Hemoglobin 30.8 Mean Corpuscular Hemoglobin Concent 32.6 Red Cell Distribution Width 17.2 H Platelet Count 421 H Mean Platelet Volume 8.7 Immature Granulocytes % 1.300 H Neutrophils % 83.4 H Lymphocytes % 11.2 L Monocytes % 2.9 Eosinophils % 0.8 Basophils % 0.4 Nucleated Red Blood Cells % 0.0 Immature Granulocytes # 0.230 H Neutrophils # 14.9 H Lymphocytes # 2.0 Monocytes # 0.5 Eosinophils # 0.2 Basophils # 0.1 Nucleated Red Blood Cells # 0.0 Prothrombin Time 14.2 Prothrombin Time Ratio 1.1 INR International Normalized Ratio 1.09 Sodium Level 142 Potassium Level 3.3 L Chloride Level 123 H Carbon Dioxide Level 12 L Anion Gap 7 Blood Urea Nitrogen 8 Creatinine 0.86 Est Glomerular Filtrat Rate mL/min > 60 Glucose Level 81 Calcium Level 8.7 Phosphorus Level 4.0 Magnesium Level 1.8 Total Bilirubin 0.0 L Direct Bilirubin 0.00 Indirect Bilirubin 0.0 Aspartate Amino Transf (AST/SGOT) 12 L Alanine Aminotransferase (ALT/SGPT) 10 L Alkaline Phosphatase 127 H Total Protein 5.5 L Albumin 2.6 L Globulin 2.90 Albumin/Globulin Ratio 0.89 Exam/Review of Systems Exam Vitals Vital Signs Date Temp Pulse Resp B/P (MAP) Pulse Ox O2 O2 Flow FiO2 Time Delivery Rate 08/21/18 98.2 89 16 148/72 100 08:00 (97) 08/18/18 Room Air 21:09 Intake and Output 08/20/18 08/20/18 08/21/18 1515:00 23:00 07:00 IntakeIntake Total 1010 ml 475 ml OutputOutput Total 1000 ml 1250 ml BalanceBalance 10 ml -775 ml Results Results 24hrs Laboratory Tests Test 08/21/18 08:03 White Blood Count 17.9 #H Red Blood Count 2.99 L Hemoglobin 9.2 L Hematocrit 28.2 L Mean Corpuscular Volume 94.3 Mean Corpuscular Hemoglobin 30.8 Mean Corpuscular Hemoglobin Concent 32.6 Red Cell Distribution Width 17.2 H Platelet Count 421 H Mean Platelet Volume 8.7 Immature Granulocytes % 1.300 H Neutrophils % 83.4 H Lymphocytes % 11.2 L Monocytes % 2.9 Eosinophils % 0.8 Basophils % 0.4 Nucleated Red Blood Cells % 0.0 Immature Granulocytes # 0.230 H Neutrophils # 14.9 H Lymphocytes # 2.0 Monocytes # 0.5 Eosinophils # 0.2 Basophils # 0.1 Nucleated Red Blood Cells # 0.0 Prothrombin Time 14.2 Prothrombin Time Ratio 1.1 INR International Normalized Ratio 1.09 Sodium Level 142 Potassium Level 3.3 L Chloride Level 123 H Carbon Dioxide Level 12 L Anion Gap 7 Blood Urea Nitrogen 8 Creatinine 0.86 Est Glomerular Filtrat Rate mL/min > 60 Glucose Level 81 Calcium Level 8.7 Phosphorus Level 4.0 Magnesium Level 1.8 Total Bilirubin 0.0 L Direct Bilirubin 0.00 Indirect Bilirubin 0.0 Aspartate Amino Transf (AST/SGOT) 12 L Alanine Aminotransferase (ALT/SGPT) 10 L Alkaline Phosphatase 127 H Total Protein 5.5 L Albumin 2.6 L Globulin 2.90 Albumin/Globulin Ratio 0.89 Medications Medication Current Medications Sodium Chloride 1,000 ml @ 50 mls/hr Q20H IV Last administered on 08/20/18 20:55; Admin Dose 50 MLS/HR; Start 08/12/18 at 13:16 IV Flush (NS 3 ml) 3 ml PER PROTOCOL IV ; Start 08/12/18 at 13:30 Ondansetron HCl (Zofran Inj) 4 mg Q6H PRN IV NAUSEA/VOMITING Last administered on 08/17/18 11:14; Admin Dose 4 MG; Start 08/12/18 at 13:30 Acetaminophen (Tylenol Tab) 650 mg Q6H PRN PO .PAIN 1-3 OR TEMP Last administered on 08/19/18 14:08; Admin Dose 650 MG; Start 08/12/18 at 13:30 Acetaminophen (Tylenol Supp) 650 mg Q6H PRN ID .PAIN 1-3 OR TEMP; Start 08/12/18 at 13:30 Acetaminophen/ Hydrocodone Bitart ([place] (5/325)) 1 tab Q6H PRN PO .MOD PAIN 4- 6 Last administered on 08/21/18 08:46; Admin Dose 1 TAB; Start 08/12/18 at 13:30 Clonidine HCl (Catapres-Tts 1 Patch) 1 patch Q7D TRANSDERM Last administered on 08/19/18 17:33; Admin Dose 1 PATCH; Start 08/12/18 at 17:00 Enoxaparin Sodium (Lovenox) 40 mg DAILY SC Last administered on 08/21/18 08:48; Admin Dose 40 MG; Start 08/13/18 at 09:00 Senna/Docusate Sodium (Senokot-S) 2 tab HS PO Last administered on 08/20/18 20:17; Admin Dose 2 TAB; Start 08/12/18 at 21:00 Diclofenac Sodium (Voltaren 1% Gel) 2 gm QID TP Last administered on 08/21/18 08:47; Admin Dose 2 GM; Start 08/12/18 at 17:00 Lacosamide (Vimpat Liq) 100 mg BID PO Last administered on 08/21/18 08:46; Admin Dose 100 MG; Start 08/12/18 at 21:00 Lactobacillus Acidophilus/ Rhamnosus (Culturelle) 1 cap BID PO Last administered on 08/21/18 08:46; Admin Dose 1 CAP; Start 08/12/18 at 21:00 Levothyroxine Sodium (Synthroid) 50 mcg BEFORE BREAKFAST PO Last administered on 08/21/18 06:11; Admin Dose 50 MCG; Start 08/13/18 at 07:00 Lidocaine (Lidoderm) 1 patch DAILY TRANSDERM Last administered on 08/21/18 08:47; Admin Dose 1 PATCH; Start 08/13/18 at 09:00 Nifedipine (Procardia Xl) 90 mg DAILY PO Last administered on 08/21/18 08:47; Admin Dose 90 MG; Start 08/13/18 at 09:00 Oxcarbazepine (Trileptal) 300 mg BID PO Last administered on 08/21/18 08:46; Admin Dose 300 MG; Start 08/12/18 at 21:00 Pantoprazole (Protonix Tab) 40 mg BID@0600,1800 PO Last administered on 08/21/18 06:11; Admin Dose 40 MG; Start 08/12/18 at 18:00 Risperidone (Risperdal) 0.25 mg BID PO Last administered on 08/21/18 08:46; Admin Dose 0.25 MG; Start 08/12/18 at 21:00 Ibuprofen (Motrin) 600 mg Q6H PRN PO MILD PAIN LEVEL 1-3 Last administered on 08/20/18 13:32; Admin Dose 600 MG; Start 08/13/18 at 01:00 Vancomycin HCl (Vanco Iv Per Pharmacy) VANCOMYCIN PER PHARMACY PER PROTOCOL XX ; Start 08/14/18 at 15:00 Vancomycin HCl 100 ml @ 100 mls/hr Q24H IVPB Last administered on 08/21/18at 00:52; Admin Dose 100 MLS/HR; Start 08/16/18 at 01:00 Cefepime HCl 50 ml @ 100 mls/hr Q24H IVPB Last administered on 08/20/18at 20:5 5; Admin Dose 100 MLS/HR; Start 08/14/18 at 20:00 Morphine Sulfate (morphine) 6 mg Q4H PRN PO SEVERE PAIN LEVEL 7-10 Last administered on 08/20/18at 00:50; Admin Dose 6 MG; Start 08/15/18 at 16:00 Famotidine (Pepcid) 20 mg DAILY PO Last administered on 08/21/18at 08:46; Admin Dose 20 MG; Start 08/16/18 at 09:00 Hydralazine HCl (Apresoline) 10 mg Q6H PRN IV SBP>160 Last administered on 08/19/18at 14:08; Admin Dose 10 MG; Start 08/18/18 at 17:00 ANALISA MOSS MD Aug 21, 2018 11:40
[2018-08-21] MEDS: HYDROCORTISONE 5 MG TAB PO SCH ×3 (12:16→20:29)
--- NOTE | 2018-08-21 13:00 | CONS ---
Assessment/Plan Assessment/Plan Hospital Course (Demo Recall) Patient is doing much better today she is awake follows commands WBC today went down to 17.9. Right upper extremity looks much better with swelling almost resolved and much less pain MRI of right hip revealed mildly impacted fracture of the sub-capital left femoral neck no evident acute fracture of the right hip lesion in the right vastus lateralis questionable small abscess Microbiology: All cultures negative Chest x-ray this morning revealed no acute airspace infiltrates. Right upper extremity ultrasound revealed no DVT WBC scan revealed area of increased activity in the right proximal thigh/right proximal femur; inflammatory/infectious process cannot be ruled out. Antimicrobials: Vanco Cefepime Physical examination: Well-nourished well-developed ill-appearing middle-aged woman in no distress. Head atraumatic normocephalic sclera nonicteric, neck is supple, chest rise symmetrical, breath sounds diminished bases, heart S1-S2, abdomen soft, bowel sounds present, right upper extremity is swollen hot and painful to touch Assessment: 1. Sepsis, ongoing==> present on admission 2. Acute encephalopathy 3. Right upper extremity cellulitis 3. S/p E coli ESBL UTI 4. History of CVA 5. Hypertension 6. Seizure disorder 7. Acute possibly on chronic kidney disease Plan: Patient is doing much better today, will continue her on current antibiotics, consider rheumatology evaluation given that extremity swelling that is much better today Consultation Date/Type/Reason Admit Date/Time Aug 12, 2018 at 12:45 Initial Consult Date Type of Consult id Requesting Provider: FELIX FERNANDES NP Date/Time of Note DATE: 08/21/18 TIME: 12:58 Exam/Review of Systems Exam Vitals Vital Signs Date Temp Pulse Resp B/P (MAP) Pulse Ox O2 O2 Flow FiO2 Time Delivery Rate 08/21/18 98.2 89 16 148/72 100 08:00 (97) 08/18/18 Room Air 21:09 Intake and Output 08/20/18 08/20/18 08/21/18 1515:00 23:00 07:00 IntakeIntake Total 1010 ml 475 ml OutputOutput Total 1000 ml 1250 ml BalanceBalance 10 ml -775 ml Results Result Diagram: 08/21/18 0803 08/21/18 0803 Results 24hrs Laboratory Tests Test 08/21/18 08:03 White Blood Count 17.9 #H Red Blood Count 2.99 L Hemoglobin 9.2 L Hematocrit 28.2 L Mean Corpuscular Volume 94.3 Mean Corpuscular Hemoglobin 30.8 Mean Corpuscular Hemoglobin Concent 32.6 Red Cell Distribution Width 17.2 H Platelet Count 421 H Mean Platelet Volume 8.7 Immature Granulocytes % 1.300 H Neutrophils % 83.4 H Lymphocytes % 11.2 L Monocytes % 2.9 Eosinophils % 0.8 Basophils % 0.4 Nucleated Red Blood Cells % 0.0 Immature Granulocytes # 0.230 H Neutrophils # 14.9 H Lymphocytes # 2.0 Monocytes # 0.5 Eosinophils # 0.2 Basophils # 0.1 Nucleated Red Blood Cells # 0.0 Prothrombin Time 14.2 Prothrombin Time Ratio 1.1 INR International Normalized Ratio 1.09 Sodium Level 142 Potassium Level 3.3 L Chloride Level 123 H Carbon Dioxide Level 12 L Anion Gap 7 Blood Urea Nitrogen 8 Creatinine 0.86 Est Glomerular Filtrat Rate mL/min > 60 Glucose Level 81 Calcium Level 8.7 Phosphorus Level 4.0 Magnesium Level 1.8 Total Bilirubin 0.0 L Direct Bilirubin 0.00 Indirect Bilirubin 0.0 Aspartate Amino Transf (AST/SGOT) 12 L Alanine Aminotransferase (ALT/SGPT) 10 L Alkaline Phosphatase 127 H Total Protein 5.5 L Albumin 2.6 L Globulin 2.90 Albumin/Globulin Ratio 0.89 Medications Medication Current Medications IV Flush (NS 3 ml) 3 ml PER PROTOCOL IV ; Start 08/12/18 at 13:30 Ondansetron HCl (Zofran Inj) 4 mg Q6H PRN IV NAUSEA/VOMITING Last administered on 08/17/18at 11:14; Admin Dose 4 MG; Start 08/12/18 at 13:30 Acetaminophen (Tylenol Tab) 650 mg Q6H PRN PO .PAIN 1-3 OR TEMP Last administered on 08/19/18at 14:08; Admin Dose 650 MG; Start 08/12/18 at 13:30 Acetaminophen (Tylenol Supp) 650 mg Q6H PRN [place] .PAIN 1-3 OR TEMP; Start 08/12/18 at 13:30 Acetaminophen/ Hydrocodone Bitart ([place] (5/325)) 1 tab Q6H PRN PO .MOD PAIN 4- 6 Last administered on 08/21/18at 08:46; Admin Dose 1 TAB; Start 08/12/18 at 13:30 Clonidine HCl (Catapres-Tts 1 Patch) 1 patch Q7D TRANSDERM Last administered on 08/19/18 17:33; Admin Dose 1 PATCH; Start 08/12/18 at 17:00 Enoxaparin Sodium (Lovenox) 40 mg DAILY SC Last administered on 08/21/18 08:48; Admin Dose 40 MG; Start 08/13/18 at 09:00 Senna/Docusate Sodium (Senokot-S) 2 tab HS PO Last administered on 08/20/18 20:17; Admin Dose 2 TAB; Start 08/12/18 at 21:00 Diclofenac Sodium (Voltaren 1% Gel) 2 gm QID TP Last administered on 08/21/18 12:16; Admin Dose 2 GM; Start 08/12/18 at 17:00 Lacosamide (Vimpat Liq) 100 mg BID PO Last administered on 08/21/18 08:46; Admin Dose 100 MG; Start 08/12/18 at 21:00 Lactobacillus Acidophilus/ Rhamnosus (Culturelle) 1 cap BID PO Last administered on 08/21/18 08:46; Admin Dose 1 CAP; Start 08/12/18 at 21:00 Levothyroxine Sodium (Synthroid) 50 mcg BEFORE BREAKFAST PO Last administered on 08/21/18 06:11; Admin Dose 50 MCG; Start 08/13/18 at 07:00 Lidocaine (Lidoderm) 1 patch DAILY TRANSDERM Last administered on 08/21/18 08:47; Admin Dose 1 PATCH; Start 08/13/18 at 09:00 Nifedipine (Procardia Xl) 90 mg DAILY PO Last administered on 08/21/18 08:47; Admin Dose 90 MG; Start 08/13/18 at 09:00 Oxcarbazepine (Trileptal) 300 mg BID PO Last administered on 08/21/18 08:46; Admin Dose 300 MG; Start 08/12/18 at 21:00 Pantoprazole (Protonix Tab) 40 mg BID@0600,1800 PO Last administered on 08/21/18 06:11; Admin Dose 40 MG; Start 08/12/18 at 18:00 Risperidone (Risperdal) 0.25 mg BID PO Last administered on 08/21/18 08:46; Admin Dose 0.25 MG; Start 08/12/18 at 21:00 Ibuprofen (Motrin) 600 mg Q6H PRN PO MILD PAIN LEVEL 1-3 Last administered on 08/20/18 13:32; Admin Dose 600 MG; Start 08/13/18 at 01:00 Vancomycin HCl (Vanco Iv Per Pharmacy) VANCOMYCIN PER PHARMACY PER PROTOCOL XX ; Start 08/14/18 at 15:00 Vancomycin HCl 100 ml @ 100 mls/hr Q24H IVPB Last administered on 08/21/18 00:52; Admin Dose 100 MLS/HR; Start 08/16/18 at 01:00 Cefepime HCl 50 ml @ 100 mls/hr Q24H IVPB Last administered on 08/20/18 20:55; Admin Dose 100 MLS/HR; Start 08/14/18 at 20:00 Morphine Sulfate (morphine) 6 mg Q4H PRN PO SEVERE PAIN LEVEL 7-10 Last administered on 08/20/18 00:50; Admin Dose 6 MG; Start 08/15/18 at 16:00 Famotidine (Pepcid) 20 mg DAILY PO Last administered on 08/21/18 08:46; Admin Dose 20 MG; Start 08/16/18 at 09:00 Hydralazine HCl (Apresoline) 10 mg Q6H PRN IV SBP>160 Last administered on 08/19/18 14:08; Admin Dose 10 MG; Start 08/18/18 at 17:00 Hydrocortisone (Cortef) 12.5 mg QAM PO Last administered on 08/21/18 12:16; Admin Dose 12.5 MG; Start 08/21/18 at 12:00 Hydrocortisone (Cortef) 7.5 mg DAILY@1500 PO ; Start 08/21/18 at 15:00 Hydrocortisone (Cortef) 2.5 mg HS PO ; Start 08/21/18 at 21:00 CAILIN ROBBINS NP Aug 21, 2018 13:00
--- NOTE | 2018-08-21 16:07 | CONS ---
Assessment/Plan Assessment/Plan Hospital Course 53 F c/ Hx of prior strokes c/b epilepsy...and other comorbidities...who reportedly presents for evaluation of ams. 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 The clinical picture suggests an acute toxic-metabolic encephalopathy.. Recurrent seizure is unlikely.. Recurrent stroke is unlikely.. Head CT is reassuringly without acute intracranial pathology. P: Start low dose asa for secondary stroke prevention when medically able Continued medical management per primary Continue Trileptal 300 mg bid for now; repeat trileptal level Continue Vimpat 100mg bid for now Reorient as necessary Limit sedating medications where possible PT/OT/ST as necessary Will follow clinically Consultation Date/Type/Reason Admit Date/Time Aug 12, 2018 at 12:45 Type of Consult Neurology Requesting Provider: FELIX FERNANDES NP Date/Time of Note DATE: 08/21/18 TIME: 16:07 24 HR Interval Summary Free Text/Dictation Continues medsurg monitoring. Pt was reportedly confused yesterday but is fairly oriented today. Pt states she's fine at this time. Exam Vital Signs Vitals Vital Signs Date Temp Pulse Resp B/P (MAP) Pulse Ox O2 O2 Flow FiO2 Time Delivery Rate 08/21/18 98.2 89 16 148/72 100 08:00 (97) 08/18/18 Room Air 21:09 Intake and Output 08/20/18 08/20/18 08/21/18 1515:00 23:00 07:00 IntakeIntake Total 1010 ml 475 ml OutputOutput Total 1000 ml 1250 ml BalanceBalance 10 ml -775 ml Exam PE: Gen Appearance: No Apparent Distress HEENT: Normocephalic Cardiovascular: Regular rate Lungs: Clear bilaterally Abdomen: Soft Extremities: Dry NE: The patient was alert though mildly disoriented. Oriented to self, hospital, and situation. Language was normal. Fund of knowledge was limited. Pupils were equal and reactive to light. There was no afferent pupillary defect. Visual craven were normal. Funduscopic examination was limited. Extra-ocular movements were full. Ptosis was absent. There was no nystagmus. Facial sensation was normal. Face was symmetric with normal strength. Hearing was intact. Palate movements were normal. Neck strength was normal. There was normal tongue bulk and speed of movement. Tone was normal. Muscle bulk was normal. I did not see fasciculations. Arms and legs were mildly weak and symmetric. Vibration sensation was normal. Temperature and pinprick sensation was normal. Rapid alternating movements were normal. There was no dysmetria. There was no intention tremor. Gait was deferred due to bedrest. Arm and leg reflexes were 2+ and symmetric. Calloway's sign was absent. Plantar responses were flexor. SID LYNCH NP Aug 21, 2018 16:07
[2018-08-21 19:24] VITALS: BP 149/66; PULSE 107; RESP 16
[2018-08-21] MEDS: SENNA/DOCUSATE NA (8.6MG/50MG) TAB PO SCH (20:29)
[2018-08-21] MEDS: CEFEPIME 1GM/50 ML (PMX) 50 ML IVPB SCH (21:07)
[2018-08-22] MEDS: VANCOMYCIN 500 MG (PMX) 100 ML IVPB SCH ×2 (00:53→21:34)
[2018-08-22] MEDS: morphine LIQ (10 MG/5 ML) CUP PO PRN (01:41)
[2018-08-22 02:09] VITALS: BP 168/75; PULSE 86; RESP 18
[2018-08-22] MEDS: LEVOTHYROXINE 50 MCG TAB PO SCH (06:15)
[2018-08-22] MEDS: PANTOPRAZOLE (EC) 40 MG TAB PO SCH ×2 (06:15→17:54)
[2018-08-22 07:34] VITALS: BP 157/77; PULSE 16; PULSE 93; RESP 16
[2018-08-22] MEDS: HYDROCORTISONE 5 MG TAB PO SCH ×3 (08:55→21:34)
[2018-08-22] MEDS: OXCARBAZEPINE 300 MG TAB PO SCH ×2 (08:57→20:33)
[2018-08-22] MEDS: FAMOTIDINE 20 MG TAB PO SCH (08:57)
[2018-08-22] MEDS: NIFEdipine (XL) 90 MG TAB PO SCH (08:57)
[2018-08-22] MEDS: LACTOBACILLUS RHAMNOSUS CAP PO SCH ×2 (08:57→21:34)
[2018-08-22] MEDS: RISPERIDONE 0.25 MG TAB PO SCH ×2 (08:58→20:33)
[2018-08-22] MEDS: ENOXAPARIN 40 MG/0.4 ML SYG SC SCH (08:58)
[2018-08-22] MEDS: LACOSAMIDE (100 MG/10 ML PO SYR) PO SCH ×2 (08:58→21:33)
[2018-08-22] MEDS: LIDOCAINE 5% PATCH TRANSDERM SCH (08:59)
[2018-08-22] MEDS: DICLOFENAC SODIUM 1% GEL 100 GM TUBE TP SCH ×5 (08:59→21:32)
[2018-08-22] MEDS: BALSAM PERU/CASTOR OIL 60 GM TUBE TOP SCH ×3 (08:59→21:00)
--- NOTE | 2018-08-22 12:02 | CONS ---
Assessment/Plan Assessment/Plan Hospital Course (Demo Recall) No acute events overnight patient looks comfortable no fevers. WBC today 14.3 with platelets 452 neutrophils 75.9, Vanco trough 12.5, all cultures have been negative. CT of the right upper extremity revealed no abscess but suggestive of cellulitis, no osteomyelitis no soft tissue gas MRI of right hip revealed mildly impacted fracture of the sub-capital left femoral neck no evident acute fracture of the right hip lesion in the right vastus lateralis questionable small abscess Microbiology: All cultures negative WBC scan revealed area of increased activity in the right proximal thigh/right proximal femur; inflammatory/infectious process cannot be ruled out. Antimicrobials: Vanco Cefepime Physical examination: Well-nourished well-developed ill-appearing middle-aged woman in no distress. Head atraumatic normocephalic sclera nonicteric, neck is supple, chest rise symmetrical, breath sounds diminished bases, heart S1-S2, abdomen soft, bowel sounds present, right upper extremity is swollen hot and painful to touch Assessment: 1. Sepsis, ongoing==> present on admission 2. Acute encephalopathy 3. Right upper extremity cellulitis 3. S/p E coli ESBL UTI 4. History of CVA 5. Hypertension 6. Seizure disorder 7. Acute possibly on chronic kidney disease Plan: Patient remained stable, WBC trending down, continue antibiotics Consultation Date/Type/Reason Admit Date/Time Aug 12, 2018 at 12:45 Initial Consult Date Type of Consult id Requesting Provider: FELIX FERNANDES NP Date/Time of Note DATE: 08/22/18 TIME: 12:00 Exam/Review of Systems Exam Vitals Vital Signs Date Temp Pulse Resp B/P (MAP) Pulse Ox O2 O2 Flow FiO2 Time Delivery Rate 08/22/18 98.3 93 16 157/77 98 Room Air 07:34 (103) Intake and Output 08/21/18 08/21/18 08/22/18 1515:00 23:00 07:00 IntakeIntake Total 640 ml 350 ml 50 ml BalanceBalance 640 ml 350 ml 50 ml Results Result Diagram: 08/22/18 0534 08/22/18 0534 Results 24hrs Laboratory Tests Test 08/22/18 05:34 White Blood Count 14.3 #H Red Blood Count 2.71 L Hemoglobin 8.3 L Hematocrit 25.5 L Mean Corpuscular Volume 94.1 Mean Corpuscular Hemoglobin 30.6 Mean Corpuscular Hemoglobin Concent 32.5 Red Cell Distribution Width 17.1 H Platelet Count 452 H Mean Platelet Volume 8.9 Immature Granulocytes % 1.500 H Neutrophils % 75.9 Lymphocytes % 16.3 Monocytes % 5.0 Eosinophils % 0.8 Basophils % 0.5 Nucleated Red Blood Cells % 0.0 Immature Granulocytes # 0.220 H Neutrophils # 10.9 H Lymphocytes # 2.3 Monocytes # 0.7 Eosinophils # 0.1 Basophils # 0.1 Nucleated Red Blood Cells # 0.0 Sodium Level 143 Potassium Level 3.2 L Chloride Level 118 H Carbon Dioxide Level 14 L Anion Gap 11 Blood Urea Nitrogen 10 Creatinine 0.89 Est Glomerular Filtrat Rate mL/min > 60 Glucose Level 82 Calcium Level 8.2 L Phosphorus Level 5.1 H Magnesium Level 1.6 L Total Bilirubin 0.0 L Direct Bilirubin 0.00 Indirect Bilirubin 0.0 Aspartate Amino Transf (AST/SGOT) 13 L Alanine Aminotransferase (ALT/SGPT) 17 Alkaline Phosphatase 104 Total Protein 5.1 L Albumin 2.4 L Globulin 2.70 Albumin/Globulin Ratio 0.88 Medications Medication Current Medications IV Flush (NS 3 ml) 3 ml PER PROTOCOL IV ; Start 08/12/18 at 13:30 Ondansetron HCl (Zofran Inj) 4 mg Q6H PRN IV NAUSEA/VOMITING Last administered on 08/17/18 11:14; Admin Dose 4 MG; Start 08/12/18 at 13:30 Acetaminophen (Tylenol Tab) 650 mg Q6H PRN PO .PAIN 1-3 OR TEMP Last administered on 08/19/18 14:08; Admin Dose 650 MG; Start 08/12/18 at 13:30 Acetaminophen (Tylenol Supp) 650 mg Q6H PRN [place] .PAIN 1-3 OR TEMP; Start 08/12/18 at 13:30 Acetaminophen/ Hydrocodone Bitart ([place] (5/325)) 1 tab Q6H PRN PO .MOD PAIN 4- 6 Last administered on 08/21/18 08:46; Admin Dose 1 TAB; Start 08/12/18 at 13:30 Clonidine HCl (Catapres-Tts 1 Patch) 1 patch Q7D TRANSDERM Last administered on 08/19/18 17:33; Admin Dose 1 PATCH; Start 08/12/18 at 17:00 Enoxaparin Sodium (Lovenox) 40 mg DAILY SC Last administered on 08/22/18 08:58; Admin Dose 40 MG; Start 08/13/18 at 09:00 Senna/Docusate Sodium (Senokot-S) 2 tab HS PO Last administered on 08/21/18 20:29; Admin Dose 2 TAB; Start 08/12/18 at 21:00 Diclofenac Sodium (Voltaren 1% Gel) 2 gm QID TP Last administered on 08/22/18 08:59; Admin Dose 2 GM; Start 08/12/18 at 17:00 Lacosamide (Vimpat Liq) 100 mg BID PO Last administered on 08/22/18 08:58; A dmin Dose 100 MG; Start 08/12/18 at 21:00 Lactobacillus Acidophilus/ Rhamnosus (Culturelle) 1 cap BID PO Last administered on 08/22/18 08:57; Admin Dose 1 CAP; Start 08/12/18 at 21:00 Levothyroxine Sodium (Synthroid) 50 mcg BEFORE BREAKFAST PO Last administered on 08/22/18 06:15; Admin Dose 50 MCG; Start 08/13/18 at 07:00 Lidocaine (Lidoderm) 1 patch DAILY TRANSDERM Last administered on 08/22/18 08:59; Admin Dose 1 PATCH; Start 08/13/18 at 09:00 Nifedipine (Procardia Xl) 90 mg DAILY PO Last administered on 08/22/18 08:57; Admin Dose 90 MG; Start 08/13/18 at 09:00 Oxcarbazepine (Trileptal) 300 mg BID PO Last administered on 08/22/18 08:57; Admin Dose 300 MG; Start 08/12/18 at 21:00 Pantoprazole (Protonix Tab) 40 mg BID@0600,1800 PO Last administered on 08/22/18 06:15; Admin Dose 40 MG; Start 08/12/18 at 18:00 Risperidone (Risperdal) 0.25 mg BID PO Last administered on 08/22/18 08:58; Admin Dose 0.25 MG; Start 08/12/18 at 21:00 Ibuprofen (Motrin) 600 mg Q6H PRN PO MILD PAIN LEVEL 1-3 Last administered on 08/20/18 13:32; Admin Dose 600 MG; Start 08/13/18 at 01:00 Vancomycin HCl (Vanco Iv Per Pharmacy) VANCOMYCIN PER PHARMACY PER PROTOCOL XX ; Start 08/14/18 at 15:00 Vancomycin HCl 100 ml @ 100 mls/hr Q24H IVPB Last administered on 08/22/18 00:53; Admin Dose 100 MLS/HR; Start 08/16/18 at 01:00 Cefepime HCl 50 ml @ 100 mls/hr Q24H IVPB Last administered on 08/21/18 21:07 ; Admin Dose 100 MLS/HR; Start 08/14/18 at 20:00 Morphine Sulfate (morphine) 6 mg Q4H PRN PO SEVERE PAIN LEVEL 7-10 Last administered on 08/22/18 01:41; Admin Dose 6 MG; Start 08/15/18 at 16:00 Famotidine (Pepcid) 20 mg DAILY PO Last administered on 08/22/18 08:57; Admin Dose 20 MG; Start 08/16/18 at 09:00 Hydralazine HCl (Apresoline) 10 mg Q6H PRN IV SBP>160 Last administered on 08/19/18 14:08; Admin Dose 10 MG; Start 08/18/18 at 17:00 Hydrocortisone (Cortef) 12.5 mg QAM PO Last administered on 08/22/18 08:55; Admin Dose 12.5 MG; Start 08/21/18 at 12:00 Hydrocortisone (Cortef) 7.5 mg DAILY@1500 PO Last administered on 08/21/18 14:44; Admin Dose 7.5 MG; Start 08/21/18 at 15:00 Hydrocortisone (Cortef) 2.5 mg HS PO Last administered on 08/21/18 20:29; Admin Dose 2.5 MG; Start 08/21/18 at 21:00 CAILIN ROBBINS NP Aug 22, 2018 12:02
--- NOTE | 2018-08-22 13:33 | CONS ---
Assessment/Plan Assessment/Plan Hospital Course 53 F c/ Hx of prior strokes c/b epilepsy...and other comorbidities...who reportedly presents for evaluation of ams. 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 The clinical picture suggests an acute toxic-metabolic encephalopathy.. Recurrent seizure is unlikely.. Recurrent stroke is unlikely.. Head CT is reassuringly without acute intracranial pathology. P: Start low dose asa for secondary stroke prevention when medically able Continued medical management per primary Continue Trileptal 300 mg bid for now; repeat trileptal level Continue Vimpat 100mg bid for now Reorient as necessary Limit sedating medications where possible PT/OT/ST as necessary Will follow clinically Consultation Date/Type/Reason Admit Date/Time Aug 12, 2018 at 12:45 Type of Consult Neurology Reason for Consultation ams Requesting Provider: FELIX FERNANDES NP Date/Time of Note DATE: 08/22/18 TIME: 13:32 24 HR Interval Summary Free Text/Dictation Continues acute care Exam Vital Signs Vitals Vital Signs Date Temp Pulse Resp B/P (MAP) Pulse Ox O2 O2 Flow FiO2 Time Delivery Rate 08/22/18 98.3 93 16 157/77 98 Room Air 07:34 (103) Intake and Output 08/21/18 08/21/18 08/22/18 1515:00 23:00 07:00 IntakeIntake Total 640 ml 350 ml 50 ml BalanceBalance 640 ml 350 ml 50 ml Exam PE: Gen Appearance: No Apparent Distress HEENT: Normocephalic Cardiovascular: Regular rate Abdomen: Soft Extremities: Dry NE: The patient was alert though disoriented. Language was normal. Fund of knowledge was limited. Pupils were equal and reactive to light. There was no afferent pupillary defect. Visual craven were normal. Funduscopic examination was limited. Extra-ocular movements were full. Ptosis was absent. There was no nystagmus. Facial sensation was normal. Face was symmetric with normal strength. Hearing was intact. Palate movements were normal. Neck strength was normal. There was normal tongue bulk and speed of movement. Tone was normal. Muscle bulk was normal. I did not see fasciculations. Arms and legs were weak on the left. Vibration sensation was normal. Temperature and pinprick sensation was normal. Rapid alternating movements were normal. There was no dysmetria. There was no intention tremor. Gait was deferred due to bedrest. Arm and leg reflexes were symmetric. Calloway's sign was absent. Plantar responses were flexor. PATRIC LAWLER Aug 22, 2018 13:33
[2018-08-22 13:57] VITALS: BP 160/86; PULSE 103
[2018-08-22 14:48] VITALS: BP 150/74; PULSE 96
[2018-08-22] MEDS: POTASSIUM CHLORIDE 20 MEQ POWDER FOR ORAL SOLN PO SCH (18:51)
[2018-08-22 20:00] VITALS: BP 147/77; PULSE 115
[2018-08-22] MEDS: LOSARTAN 25 MG TAB PO SCH (20:28)
[2018-08-22] MEDS: CEFEPIME 1GM/50 ML (PMX) 50 ML IVPB SCH (20:28)
[2018-08-22] MEDS: SENNA/DOCUSATE NA (8.6MG/50MG) TAB PO SCH (20:33)
[2018-08-22] MEDS: MAGNESIUM OXIDE 400 MG TAB PO SCH (20:33)
--- NOTE | 2018-08-22 22:58 | PN ---
Date/Time of Note Date/Time of Note DATE: 08/22/18 TIME: 22:55 Assessment/Plan VTE Prophylaxis Risk score (from Nsg)>0 risk: 2 SCD applied (from Nsg): No SCD contraindicated: low risk/ambulating Pharmacological prophylaxis: LMWH Lines/Catheters IV Catheter Type (from Nrsg): Mid Line Urinary Cath still in place: No (DC'd tip intact) Assessment/Plan Hospital Course A/P 1. Sirs [Await urine/ bl culture, consider om/ discitis]. Additionally Sirs due to pelvic fracture/ pain. rt vastus lateralis possible small abscess, for antibiotics [consider MRI w contrast rt thigh]. post traumatic low grade strain, rt obturator externus & obturator internus, for conservative mngmnt. 2. Subacute pelvic fracture 3. Subacute left hip fracture on conservative management; sp ortho consult 4. Adrenal insufficiency, bp now elevated 5. Hypothyroidism 6. 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 stable for re-eval as outpatient. 9. Nonadherence to meds, for her endocrine processes. Presently excepting replacement therapy. 10. History of stroke 11. History of seizures? 12. Chr hallucinations for many months possible acute psychosis vs delirium. 13. Recent ESBL cystitis s/p Levaquin. 14. Ckd III 15. Dyslipidemia 16. Hypertension 17. Constipation 18. Mechanical fall fractures a few months back 19. Left femur subcapital fracture, subacute. On conservative management treat pain PT probably nwb. 20. Left pelvic fracture, subacute 21. L4 fracture 22. Secondary osteoporosis? 23. RUE cellulitis; no dvt, no abscess on ct. 24. Ftt, consider snf. Last time patient was unable to be at home for more than 48 hours. S: 08/20 rt arm pain 08/21 less distress. Less edema pain of right upper extremity. No diarrhea. 08/22: less distress. arm looks better. O: Vss PE No pallor reg ctab bs+ nt nd; no r r g hypotonia? Rue: less warmth/ edema around elbow Result Diagram: 08/22/18 0534 08/22/18 0534 Results 24hrs Laboratory Tests Test 08/22/18 05:34 08/22/18 13:29 White Blood Count 14.3 #H Red Blood Count 2.71 L Hemoglobin 8.3 L Hematocrit 25.5 L Mean Corpuscular Volume 94.1 Mean Corpuscular Hemoglobin 30.6 Mean Corpuscular Hemoglobin Concent 32.5 Red Cell Distribution Width 17.1 H Platelet Count 452 H Mean Platelet Volume 8.9 Immature Granulocytes % 1.500 H Neutrophils % 75.9 Lymphocytes % 16.3 Monocytes % 5.0 Eosinophils % 0.8 Basophils % 0.5 Nucleated Red Blood Cells % 0.0 Immature Granulocytes # 0.220 H Neutrophils # 10.9 H Lymphocytes # 2.3 Monocytes # 0.7 Eosinophils # 0.1 Basophils # 0.1 Nucleated Red Blood Cells # 0.0 Sodium Level 143 Potassium Level 3.2 L Chloride Level 118 H Carbon Dioxide Level 14 L Anion Gap 11 Blood Urea Nitrogen 10 Creatinine 0.89 Est Glomerular Filtrat Rate mL/min > 60 Glucose Level 82 Calcium Level 8.2 L Phosphorus Level 5.1 H Magnesium Level 1.6 L Total Bilirubin 0.0 L Direct Bilirubin 0.00 Indirect Bilirubin 0.0 Aspartate Amino Transf (AST/SGOT) 13 L Alanine Aminotransferase (ALT/SGPT) 17 Alkaline Phosphatase 104 Total Protein 5.1 L Albumin 2.4 L Globulin 2.70 Albumin/Globulin Ratio 0.88 Erythrocyte Sedimentation Rate 70 H Exam/Review of Systems Exam Vitals Vital Signs Date Temp Pulse Resp B/P (MAP) Pulse Ox O2 O2 Flow FiO2 Time Delivery Rate 08/22/18 97.9 115 147/77 99 20:00 (100) 08/22/18 Room Air 13:57 08/22/18 16 07:34 Intake and Output 08/21/18 08/21/18 08/22/18 1515:00 23:00 07:00 IntakeIntake Total 640 ml 350 ml 50 ml BalanceBalance 640 ml 350 ml 50 ml Results Results 24hrs Laboratory Tests Test 08/22/18 05:34 08/22/18 13:29 White Blood Count 14.3 #H Red Blood Count 2.71 L Hemoglobin 8.3 L Hematocrit 25.5 L Mean Corpuscular Volume 94.1 Mean Corpuscular Hemoglobin 30.6 Mean Corpuscular Hemoglobin Concent 32.5 Red Cell Distribution Width 17.1 H Platelet Count 452 H Mean Platelet Volume 8.9 Immature Granulocytes % 1.500 H Neutrophils % 75.9 Lymphocytes % 16.3 Monocytes % 5.0 Eosinophils % 0.8 Basophils % 0.5 Nucleated Red Blood Cells % 0.0 Immature Granulocytes # 0.220 H Neutrophils # 10.9 H Lymphocytes # 2.3 Monocytes # 0.7 Eosinophils # 0.1 Basophils # 0.1 Nucleated Red Blood Cells # 0.0 Sodium Level 143 Potassium Level 3.2 L Chloride Level 118 H Carbon Dioxide Level 14 L Anion Gap 11 Blood Urea Nitrogen 10 Creatinine 0.89 Est Glomerular Filtrat Rate mL/min > 60 Glucose Level 82 Calcium Level 8.2 L Phosphorus Level 5.1 H Magnesium Level 1.6 L Total Bilirubin 0.0 L Direct Bilirubin 0.00 Indirect Bilirubin 0.0 Aspartate Amino Transf (AST/SGOT) 13 L Alanine Aminotransferase (ALT/SGPT) 17 Alkaline Phosphatase 104 Total Protein 5.1 L Albumin 2.4 L Globulin 2.70 Albumin/Globulin Ratio 0.88 Erythrocyte Sedimentation Rate 70 H Medications Medication Current Medications IV Flush (NS 3 ml) 3 ml PER PROTOCOL IV ; Start 08/12/18 at 13:30 Ondansetron HCl (Zofran Inj) 4 mg Q6H PRN IV NAUSEA/VOMITING Last administered on 08/17/18 11:14; Admin Dose 4 MG; Start 08/12/18 at 13:30 Acetaminophen (Tylenol Tab) 650 mg Q6H PRN PO .PAIN 1-3 OR TEMP Last administered on 08/19/18 14:08; Admin Dose 650 MG; Start 08/12/18 at 13:30 Acetaminophen (Tylenol Supp) 650 mg Q6H PRN SC .PAIN 1-3 OR TEMP; Start 08/12/18 at 13:30 Acetaminophen/ Hydrocodone Bitart ([place] (5/325)) 1 tab Q6H PRN PO .MOD PAIN 4- 6 Last administered on 08/21/18 08:46; Admin Dose 1 TAB; Start 08/12/18 at 13:30 Clonidine HCl (Catapres-Tts 1 Patch) 1 patch Q7D TRANSDERM Last administered on 08/19/18 17:33; Admin Dose 1 PATCH; Start 08/12/18 at 17:00 Enoxaparin Sodium (Lovenox) 40 mg DAILY SC Last administered on 08/22/18at 0 8:58; Admin Dose 40 MG; Start 08/13/18 at 09:00 Senna/Docusate Sodium (Senokot-S) 2 tab HS PO Last administered on 08/22/18 20:33; Admin Dose 2 TAB; Start 08/12/18 at 21:00 Diclofenac Sodium (Voltaren 1% Gel) 2 gm QID TP Last administered on 08/22/18 08:59; Admin Dose 2 GM; Start 08/12/18 at 17:00 Lacosamide (Vimpat Liq) 100 mg BID PO Last administered on 08/22/18 21:33; Admin Dose 100 MG; Start 08/12/18 at 21:00 Lactobacillus Acidophilus/ Rhamnosus (Culturelle) 1 cap BID PO Last administered on 08/22/18 21:34; Admin Dose 1 CAP; Start 08/12/18 at 21:00 Levothyroxine Sodium (Synthroid) 50 mcg BEFORE BREAKFAST PO Last administered on 08/22/18 06:15; Admin Dose 50 MCG; Start 08/13/18 at 07:00 Lidocaine (Lidoderm) 1 patch DAILY TRANSDERM Last administered on 08/22/18 08:59; Admin Dose 1 PATCH; Start 08/13/18 at 09:00 Nifedipine (Procardia Xl) 90 mg DAILY PO Last administered on 08/22/18 08:57; Admin Dose 90 MG; Start 08/13/18 at 09:00 Oxcarbazepine (Trileptal) 300 mg BID PO Last administered on 08/22/18 20:33; Admin Dose 300 MG; Start 08/12/18 at 21:00 Pantoprazole (Protonix Tab) 40 mg BID@0600,1800 PO Last administered on 08/22/18 17:54; Admin Dose 40 MG; Start 08/12/18 at 18:00 Risperidone (Risperdal) 0.25 mg BID PO Last administered on 08/22/18 20:33; Admin Dose 0.25 MG; Start 08/12/18 at 21:00 Ibuprofen (Motrin) 600 mg Q6H PRN PO MILD PAIN LEVEL 1-3 Last administered on 08/20/18 13:32; Admin Dose 600 MG; Start 08/13/18 at 01:00 Vancomycin HCl (Vanco Iv Per Pharmacy) VANCOMYCIN PER PHARMACY PER PROTOCOL XX ; Start 08/14/18 at 15:00 Cefepime HCl 50 ml @ 100 mls/hr Q24H IVPB Last administered on 08/22/18 20:28; Admin Dose 100 MLS/HR; Start 08/14/18 at 20:00 Morphine Sulfate (morphine) 6 mg Q4H PRN PO SEVERE PAIN LEVEL 7-10 Last administered on 08/22/18 01:41; Admin Dose 6 MG; Start 08/15/18 at 16:00 Famotidine (Pepcid) 20 mg DAILY PO Last administered on 08/22/18 08:57; Admin Dose 20 MG; Start 08/16/18 at 09:00 Hydralazine HCl (Apresoline) 10 mg Q6H PRN IV SBP>160 Last administered on 08/19/18 14:08; Admin Dose 10 MG; Start 08/18/18 at 17:00 Hydrocortisone (Cortef) 12.5 mg QAM PO Last administered on 08/22/18 08:55; Admin Dose 12.5 MG; Start 08/21/18 at 12:00 Hydrocortisone (Cortef) 7.5 mg DAILY@1500 PO Last administered on 08/22/18 14:21; Admin Dose 7.5 MG; Start 08/21/18 at 15:00 Hydrocortisone (Cortef) 2.5 mg HS PO Last administered on 08/22/18 21:34; Admin Dose 2.5 MG; Start 08/21/18 at 21:00 Vancomycin HCl 100 ml @ 100 mls/hr Q24H IVPB Last administered on 08/22/18 21:34; Admin Dose 100 MLS/HR; Start 08/22/18 at 21:00 Potassium Chloride (Potassium Chloride Pwd/Soln) 40 meq DAILY PO Last administered on 08/22/18 18:51; Admin Dose 40 MEQ; Start 08/22/18 at 18:00 Magnesium Oxide (Mag-Ox 400) 400 mg BID PO Last administered on 08/22/18 20:33; Admin Dose 400 MG; Start 08/22/18 at 21:00 Losartan Potassium (Cozaar) 25 mg DAILY PO Last administered on 08/22/18 20:28; Admin Dose 25 MG; Start 08/22/18 at 19:00 ANALISA MOSS MD Aug 22, 2018 22:58
[2018-08-23 02:00] VITALS: BP 142/78; PULSE 78; RESP 17
[2018-08-23] MEDS: PANTOPRAZOLE (EC) 40 MG TAB PO SCH ×2 (05:56→17:16)
[2018-08-23] MEDS: LEVOTHYROXINE 50 MCG TAB PO SCH (06:00)
[2018-08-23 07:22] VITALS: BP 160/78; PULSE 91; RESP 16
[2018-08-23] MEDS: LACTOBACILLUS RHAMNOSUS CAP PO SCH ×2 (08:15→21:04)
[2018-08-23] MEDS: RISPERIDONE 0.25 MG TAB PO SCH ×2 (08:15→21:04)
[2018-08-23] MEDS: LACOSAMIDE (100 MG/10 ML PO SYR) PO SCH ×2 (08:15→21:04)
[2018-08-23] MEDS: HYDROCORTISONE 5 MG TAB PO SCH ×3 (08:15→21:04)
[2018-08-23] MEDS: POTASSIUM CHLORIDE 20 MEQ POWDER FOR ORAL SOLN PO SCH (08:15)
[2018-08-23] MEDS: MAGNESIUM OXIDE 400 MG TAB PO SCH ×2 (08:15→21:04)
[2018-08-23] MEDS: OXCARBAZEPINE 300 MG TAB PO SCH ×2 (08:15→21:04)
[2018-08-23] MEDS: LOSARTAN 25 MG TAB PO SCH (08:15)
[2018-08-23] MEDS: NIFEdipine (XL) 90 MG TAB PO SCH (08:16)
[2018-08-23] MEDS: LIDOCAINE 5% PATCH TRANSDERM SCH (08:16)
[2018-08-23] MEDS: BALSAM PERU/CASTOR OIL 60 GM TUBE TOP SCH ×2 (08:17→21:00)
[2018-08-23] MEDS: DICLOFENAC SODIUM 1% GEL 100 GM TUBE TP SCH ×4 (08:17→21:00)
[2018-08-23] MEDS: ENOXAPARIN 40 MG/0.4 ML SYG SC SCH (08:17)
[2018-08-23 13:55] VITALS: BP 173/101; PULSE 114; RESP 16
--- NOTE | 2018-08-23 14:23 | CONS ---
Assessment/Plan Assessment/Plan Hospital Course 53 F c/ Hx of prior strokes c/b epilepsy...and other comorbidities...who reportedly presents for evaluation of ams. 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 The clinical picture suggests an acute toxic-metabolic encephalopathy.. Recurrent seizure is unlikely.. Recurrent stroke is unlikely.. Head CT is reassuringly without acute intracranial pathology. P: Start low dose asa for secondary stroke prevention when medically able Continued medical management per primary Continue Trileptal 300 mg bid for now; repeat trileptal level Continue Vimpat 100mg bid for now Reorient as necessary Limit sedating medications where possible PT/OT/ST as necessary Will follow clinically Consultation Date/Type/Reason Admit Date/Time Aug 12, 2018 at 12:45 Type of Consult Neurology Requesting Provider: FELIX FERNANDES NP Date/Time of Note DATE: 08/23/18 TIME: 14:22 24 HR Interval Summary Free Text/Dictation Continues medsurg monitoring. No acute events reported. Pt is without complaints at this time. Exam Vital Signs Vitals Vital Signs Date Temp Pulse Resp B/P (MAP) Pulse Ox O2 O2 Flow FiO2 Time Delivery Rate 08/23/18 99.0 114 16 173/101 99 Room Air 13:55 (125) Intake and Output 08/22/18 08/22/18 08/23/18 1515:00 23:00 07:00 IntakeIntake Total 200 ml 350 ml 100 ml OutputOutput Total 800 ml 1450 ml BalanceBalance -600 ml -1100 ml 100 ml Exam PE: Gen Appearance: No Apparent Distress HEENT: Normocephalic Cardiovascular: Regular rate Abdomen: Soft Extremities: Dry NE: The patient was alert though disoriented. Language was normal. Fund of knowledge was limited. Pupils were equal and reactive to light. There was no afferent pupillary defect. Visual craven were normal. Funduscopic examination was limited. Extra-ocular movements were full. Ptosis was absent. There was no nystagmus. Facial sensation was normal. Face was symmetric with normal strength. Hearing was intact. Palate movements were normal. Neck strength was normal. There was normal tongue bulk and speed of movement. Tone was normal. Muscle bulk was normal. I did not see fasciculations. Arms and legs were weak on the left. Vibration sensation was normal. Temperature and pinprick sensation was normal. Rapid alternating movements were normal. There was no dysmetria. There was no intention tremor. Gait was deferred due to bedrest. Arm and leg reflexes were symmetric. Calloway's sign was absent. Plantar responses were flexor. SID LYNCH NP Aug 23, 2018 14:23
--- NOTE | 2018-08-23 14:37 | CONS ---
Assessment/Plan Assessment/Plan Hospital Course (Demo Recall) No acute events, alert, looks comfortable, no fevers Microbiology: All cultures negative WBC scan revealed area of increased activity in the right proximal thigh/right proximal femur; inflammatory/infectious process cannot be ruled out. MRI of right hip revealed mildly impacted fracture of the sub-capital left femoral neck no evident acute fracture of the right hip lesion in the right vastus lateralis questionable small abscess Antimicrobials: Vanco Cefepime Physical examination: Well-nourished well-developed ill-appearing middle-aged woman in no distress. Head atraumatic normocephalic sclera nonicteric, neck is supple, chest rise symmetrical, breath sounds diminished bases, heart S1-S2, abdomen soft, bowel sounds present, right upper extremity is swollen hot and painful to touch Assessment: 1. Sepsis ==> present on admission 2. Status post acute encephalopathy 3. S/p Right upper extremity cellulitis 3. S/p E coli ESBL UTI 4. History of CVA 5. Hypertension 6. Seizure disorder 7. Status post acute renal failure 8. Right hip questionable abscess Plan: Remains stable, continue antibiotics follow labs in a.m. Consultation Date/Type/Reason Admit Date/Time Aug 12, 2018 at 12:45 Initial Consult Date Type of Consult id Requesting Provider: FELIX FERNANDES NP Date/Time of Note DATE: 08/23/18 TIME: 14:34 Exam/Review of Systems Exam Vitals Vital Signs Date Temp Pulse Resp B/P (MAP) Pulse Ox O2 O2 Flow FiO2 Time Delivery Rate 08/23/18 99.0 114 16 173/101 99 Room Air 13:55 (125) Intake and Output 08/22/18 08/22/18 08/23/18 1515:00 23:00 07:00 IntakeIntake Total 200 ml 350 ml 100 ml OutputOutput Total 800 ml 1450 ml BalanceBalance -600 ml -1100 ml 100 ml Results Result Diagram: 08/22/18 0534 08/22/18 0534 Results 24hrs Laboratory Tests Test 08/23/18 01:23 Bedside Glucose 100 Medications Medication Current Medications IV Flush (NS 3 ml) 3 ml PER PROTOCOL IV ; Start 08/12/18 at 13:30 Ondansetron HCl (Zofran Inj) 4 mg Q6H PRN IV NAUSEA/VOMITING Last administered on 2/8/19at 11:14; Admin Dose 4 MG; Start 08/12/18 at 13:30 Acetaminophen (Tylenol Tab) 650 mg Q6H PRN PO .PAIN 1-3 OR TEMP Last administered on 08/19/18 14:08; Admin Dose 650 MG; Start 08/12/18 at 13:30 Acetaminophen (Tylenol Supp) 650 mg Q6H PRN [place] .PAIN 1-3 OR TEMP; Start 08/12/18 at 13:30 Acetaminophen/ Hydrocodone Bitart ([place] (5/325)) 1 tab Q6H PRN PO .MOD PAIN 4- 6 Last administered on 08/21/18 08:46; Admin Dose 1 TAB; Start 08/12/18 at 13:30 Clonidine HCl (Catapres-Tts 1 Patch) 1 patch Q7D TRANSDERM Last administered on 08/19/18 17:33; Admin Dose 1 PATCH; Start 08/12/18 at 17:00 Enoxaparin Sodium (Lovenox) 40 mg DAILY SC Last administered on 08/23/18 08:17; Admin Dose 40 MG; Start 08/13/18 at 09:00 Senna/Docusate Sodium (Senokot-S) 2 tab HS PO Last administered on 08/22/18 20:33; Admin Dose 2 TAB; Start 08/12/18 at 21:00 Diclofenac Sodium (Voltaren 1% Gel) 2 gm QID TP Last administered on 08/23/18 12:03; Admin Dose 2 GM; Start 08/12/18 at 17:00 Lacosamide (Vimpat Liq) 100 mg BID PO Last administered on 08/23/18 08:15; Admin Dose 100 MG; Start 08/12/18 at 21:00 Lactobacillus Acidophilus/ Rhamnosus (Culturelle) 1 cap BID PO Last administered on 08/23/18 08:15; Admin Dose 1 CAP; Start 08/12/18 at 21:00 Levothyroxine Sodium (Synthroid) 50 mcg BEFORE BREAKFAST PO Last administered on 08/23/18 06:00; Admin Dose 50 MCG; Start 08/13/18 at 07:00 Lidocaine (Lidoderm) 1 patch DAILY TRANSDERM Last administered on 08/22/18 08:59; Admin Dose 1 PATCH; Start 08/13/18 at 09:00 Nifedipine (Procardia Xl) 90 mg DAILY PO Last administered on 08/23/18 08:16; Admin Dose 90 MG; Start 08/13/18 at 09:00 Oxcarbazepine (Trileptal) 300 mg BID PO Last administered on 08/23/18 08:15; Admin Dose 300 MG; Start 08/12/18 at 21:00 Pantoprazole (Protonix Tab) 40 mg BID@0600,1800 PO Last administered on 08/23/18 05:56; Admin Dose 40 MG; Start 08/12/18 at 18:00 Risperidone (Risperdal) 0.25 mg BID PO Last administered on 08/23/18 08:15; Admin Dose 0.25 MG; Start 08/12/18 at 21:00 Ibuprofen (Motrin) 600 mg Q6H PRN PO MILD PAIN LEVEL 1-3 Last administered on 08/20/18 13:32; Admin Dose 600 MG; Start 08/13/18 at 01:00 Vancomycin HCl (Vanco Iv Per Pharmacy) VANCOMYCIN PER PHARMACY PER PROTOCOL XX ; Start 08/14/18 at 15:00 Cefepime HCl 50 ml @ 100 mls/hr Q24H IVPB Last administered on 08/22/18 20:28; Admin Dose 100 MLS/HR; Start 08/14/18 at 20:00 Morphine Sulfate (morphine) 6 mg Q4H PRN PO SEVERE PAIN LEVEL 7-10 Last administered on 08/22/18 01:41; Admin Dose 6 MG; Start 08/15/18 at 16:00 Hydralazine HCl (Apresoline) 10 mg Q6H PRN IV SBP>160 Last administered on 08/19/18 14:08; Admin Dose 10 MG; Start 08/18/18 at 17:00 Hydrocortisone (Cortef) 12.5 mg QAM PO Last administered on 08/23/18 08:15; Ad min Dose 12.5 MG; Start 08/21/18 at 12:00 Hydrocortisone (Cortef) 7.5 mg DAILY@1500 PO Last administered on 08/22/18 14:21; Admin Dose 7.5 MG; Start 08/21/18 at 15:00 Hydrocortisone (Cortef) 2.5 mg HS PO Last administered on 08/22/18 21:34; Admin Dose 2.5 MG; Start 08/21/18 at 21:00 Vancomycin HCl 100 ml @ 100 mls/hr Q24H IVPB Last administered on 08/22/18at 21:34; Admin Dose 100 MLS/HR; Start 08/22/18 at 21:00 Potassium Chloride (Potassium Chloride Pwd/Soln) 40 meq DAILY PO Last administe red on 08/23/18 08:15; Admin Dose 40 MEQ; Start 08/22/18 at 18:00 Magnesium Oxide (Mag-Ox 400) 400 mg BID PO Last administered on 08/23/18at 08:15; Admin Dose 400 MG; Start 08/22/18 at 21:00 Losartan Potassium (Cozaar) 25 mg DAILY PO Last administered on 08/23/18 08:15; Admin Dose 25 MG; Start 08/22/18 at 19:00 Miscellaneous Information (*Rx Drug Level Order Reminder*) VANCO TR AT 1999 ONCE ONCE XX ; Start 08/23/18 at 20:00; Stop 08/23/18 at 20:01 CAILIN ROBBINS NP Aug 23, 2018 14:37
--- NOTE | 2018-08-23 16:27 | PN ---
Date/Time of Note Date/Time of Note DATE: 08/23/18 TIME: 16:22 Assessment/Plan VTE Prophylaxis Risk score (from Nsg)>0 risk: 2 SCD applied (from Nsg): Yes SCD contraindicated: low risk/ambulating Pharmacological prophylaxis: LMWH Lines/Catheters IV Catheter Type (from Nrsg): Mid Line Urinary Cath still in place: No (DC'd tip intact) Assessment/Plan Hospital Course A/P 1. Sirs [multiple etio]. Additionally Sirs due to pelvic fracture/ pain. stable, finish atb for rue cellulitis/ pelvic abscess/ uti. rt vastus lateralis possible small abscess, for atbs [MRI contrast rt thigh prn]. post traumatic low grade strain, rt obturator externus & obturator internus, for conservative mngmnt. 2. Subacute pelvic fracture 3. Subacute left hip fracture on conservative management; sp ortho consult 4. Adrenal insufficiency, bp now elevated 5. Hypothyroidism 6. 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 stable for re-eval as outpatient. 9. Nonadherence to meds, for her endocrine processes. Presently excepting replacement therapy. 10. History of stroke 11. History of seizures? 12. Chr hallucinations for many months possible acute psychosis vs delirium. 13. Recent ESBL cystitis s/p Levaquin. 14. Ckd III 15. Dyslipidemia 16. Hypertension 17. Constipation 18. Mechanical fall fractures a few months back 19. Left femur subcapital fracture, subacute. On conservative management treat pain PT probably nwb. 20. Left pelvic fracture, subacute 21. L4 fracture 22. Secondary osteoporosis? 23. RUE cellulitis; no dvt, no abscess on ct. 24. Ftt, consider snf. Last time patient was unable to be at home for more than 48 hours. S: 08/20 rt arm pain 08/21 less distress. Less edema pain of right upper extremity. No diarrhea. 08/22: less distress. arm looks better. 08/23: Less right arm discomfort. No fever diarrhea. Family aware of snf option and agrees O: Vss PE No pallor reg ctab bs+ nt nd; no r r g hypotonia? Rue: less warmth/ edema around elbow Result Diagram: 08/22/18 0534 08/22/18 0534 Results 24hrs Laboratory Tests Test 08/23/18 01:23 Bedside Glucose 100 Exam/Review of Systems Exam Vitals Vital Signs Date Temp Pulse Resp B/P (MAP) Pulse Ox O2 O2 Flow FiO2 Time Delivery Rate 08/23/18 99.0 114 16 173/101 99 Room Air 13:55 (125) Intake and Output 08/22/18 08/22/18 08/23/18 1515:00 23:00 07:00 IntakeIntake Total 200 ml 350 ml 100 ml OutputOutput Total 800 ml 1450 ml BalanceBalance -600 ml -1100 ml 100 ml Results Results 24hrs Laboratory Tests Test 08/23/18 01:23 Bedside Glucose 100 Medications Medication Current Medications IV Flush (NS 3 ml) 3 ml PER PROTOCOL IV ; Start 08/12/18 at 13:30 Ondansetron HCl (Zofran Inj) 4 mg Q6H PRN IV NAUSEA/VOMITING Last administered on 08/17/18 11:14; Admin Dose 4 MG; Start 08/12/18 at 13:30 Acetaminophen (Tylenol Tab) 650 mg Q6H PRN PO .PAIN 1-3 OR TEMP Last adm inistered on 08/19/18 14:08; Admin Dose 650 MG; Start 08/12/18 at 13:30 Acetaminophen (Tylenol Supp) 650 mg Q6H PRN [place] .PAIN 1-3 OR TEMP; Start 08/12/18 at 13:30 Acetaminophen/ Hydrocodone Bitart ([place] (5/325)) 1 tab Q6H PRN PO .MOD PAIN 4- 6 Last administered on 08/21/18 08:46; Admin Dose 1 TAB; Start 08/12/18 at 13:30 Clonidine HCl (Catapres-Tts 1 Patch) 1 patch Q7D TRANSDERM Last administered on 08/19/18 17:33; Admin Dose 1 PATCH; Start 08/12/18 at 17:00 Enoxaparin Sodium (Lovenox) 40 mg DAILY SC Last administered on 08/23/18 08:17; Admin Dose 40 MG; Start 08/13/18 at 09:00 Senna/Docusate Sodium (Senokot-S) 2 tab HS PO Last administered on 08/22/18 20:33; Admin Dose 2 TAB; Start 08/12/18 at 21:00 Diclofenac Sodium (Voltaren 1% Gel) 2 gm QID TP Last administered on 08/23/18 12:03; Admin Dose 2 GM; Start 08/12/18 at 17:00 Lacosamide (Vimpat Liq) 100 mg BID PO Last administered on 08/23/18 08:15; Admin Dose 100 MG; Start 08/12/18 at 21:00 Lactobacillus Acidophilus/ Rhamnosus (Culturelle) 1 cap BID PO Last administered on 08/23/18 08:15; Admin Dose 1 CAP; Start 08/12/18 at 21:00 Levothyroxine Sodium (Synthroid) 50 mcg BEFORE BREAKFAST PO Last administered on 08/23/18 06:00; Admin Dose 50 MCG; Start 08/13/18 at 07:00 Lidocaine (Lidoderm) 1 patch DAILY TRANSDERM Last administered on 08/22/18 08:59; Admin Dose 1 PATCH; Start 08/13/18 at 09:00 Nifedipine (Procardia Xl) 90 mg DAILY PO Last administered on 08/23/18 08:16; Admin Dose 90 MG; Start 08/13/18 at 09:00 Oxcarbazepine (Trileptal) 300 mg BID PO Last administered on 08/23/18 08:15; Admin Dose 300 MG; Start 08/12/18 at 21:00 Pantoprazole (Protonix Tab) 40 mg BID@0600,1800 PO Last administered on 08/23/18 05:56; Admin Dose 40 MG; Start 08/12/18 at 18:00 Risperidone (Risperdal) 0.25 mg BID PO Last administered on 08/23/18 08:15; Admin Dose 0.25 MG; Start 08/12/18 at 21:00 Ibuprofen (Motrin) 600 mg Q6H PRN PO MILD PAIN LEVEL 1-3 Last administered on 08/20/18 13:32; Admin Dose 600 MG; Start 08/13/18 at 01:00 Vancomycin HCl (Vanco Iv Per Pharmacy) VANCOMYCIN PER PHARMACY PER PROTOCOL XX ; Start 08/14/18 at 15:00 Cefepime HCl 50 ml @ 100 mls/hr Q24H IVPB Last administered on 08/22/18 20:28; Admin Dose 100 MLS/HR; Start 08/14/18 at 20:00 Morphine Sulfate (morphine) 6 mg Q4H PRN PO SEVERE PAIN LEVEL 7-10 Last administered on 08/22/18 01:41; Admin Dose 6 MG; Start 08/15/18 at 16:00 Hydralazine HCl (Apresoline) 10 mg Q6H PRN IV SBP>160 Last administered on 08/19/18 14:08; Admin Dose 10 MG; Start 08/18/18 at 17:00 Hydrocortisone (Cortef) 12.5 mg QAM PO Last administered on 08/23/18 08:15; Admin Dose 12.5 MG; Start 08/21/18 at 12:00 Hydrocortisone (Cortef) 7.5 mg DAILY@1500 PO Last administered on 08/23/18 16:00; Admin Dose 7.5 MG; Start 08/21/18 at 15:00 Hydrocortisone (Cortef) 2.5 mg HS PO Last administered on 08/22/18 21:34; Admin Dose 2.5 MG; Start 08/21/18 at 21:00 Vancomycin HCl 100 ml @ 100 mls/hr Q24H IVPB Last administered on 08/22/18 21:34; Admin Dose 100 MLS/HR; Start 08/22/18 at 21:00 Potassium Chloride (Potassium Chloride Pwd/Soln) 40 meq DAILY PO Last administered on 08/23/18 08:15; Admin Dose 40 MEQ; Start 08/22/18 at 18:00 Magnesium Oxide (Mag-Ox 400) 400 mg BID PO Last administered on 08/23/18 08:15; Admin Dose 400 MG; Start 08/22/18 at 21:00 Losartan Potassium (Cozaar) 25 mg DAILY PO Last administered on 08/23/18 08:15; Admin Dose 25 MG; Start 08/22/18 at 19:00 Miscellaneous Information (*Rx Drug Level Order Reminder*) VANCO TR AT 1999 ONCE ONCE XX ; Start 08/23/18 at 20:00; Stop 08/23/18 at 20:01 ANALISA MOSS MD Aug 23, 2018 16:27
[2018-08-23] MEDS ORDERED: POTASSIUM CHLORIDE 20 MEQ POWDER FOR ORAL SOLN PO ONE (16:30)
[2018-08-23 19:32] VITALS: BP 164/86; PULSE 89; RESP 20
[2018-08-23] MEDS: CEFEPIME 1GM/50 ML (PMX) 50 ML IVPB SCH (20:58)
[2018-08-23] MEDS: SENNA/DOCUSATE NA (8.6MG/50MG) TAB PO SCH (21:00)
[2018-08-23] MEDS: VANCOMYCIN 500 MG (PMX) 100 ML IVPB SCH (22:13)
[2018-08-24 01:31] VITALS: BP 130/73; PULSE 87; RESP 20
[2018-08-24] MEDS: LEVOTHYROXINE 50 MCG TAB PO SCH (06:04)
[2018-08-24] MEDS: PANTOPRAZOLE (EC) 40 MG TAB PO SCH ×2 (06:04→17:10)
[2018-08-24] MEDS: ACETAMINOPHEN 325 MG TAB PO PRN (06:04)
[2018-08-24 07:13] VITALS: BP 130/71; PULSE 93; RESP 16
[2018-08-24] MEDS: HYDROCORTISONE 5 MG TAB PO SCH ×3 (08:36→20:30)
[2018-08-24] MEDS: LACOSAMIDE (100 MG/10 ML PO SYR) PO SCH ×2 (08:36→20:31)
[2018-08-24] MEDS: OXCARBAZEPINE 300 MG TAB PO SCH ×2 (08:37→20:29)
[2018-08-24] MEDS: LOSARTAN 25 MG TAB PO SCH (08:37)
[2018-08-24] MEDS: LACTOBACILLUS RHAMNOSUS CAP PO SCH ×2 (08:37→20:31)
[2018-08-24] MEDS: MAGNESIUM OXIDE 400 MG TAB PO SCH ×2 (08:37→20:30)
[2018-08-24] MEDS: POTASSIUM CHLORIDE 20 MEQ POWDER FOR ORAL SOLN PO SCH (08:37)
[2018-08-24] MEDS: ENOXAPARIN 40 MG/0.4 ML SYG SC SCH (08:38)
[2018-08-24] MEDS: RISPERIDONE 0.25 MG TAB PO SCH ×2 (08:38→20:31)
[2018-08-24] MEDS: NIFEdipine (XL) 90 MG TAB PO SCH (08:38)
[2018-08-24] MEDS: BALSAM PERU/CASTOR OIL 60 GM TUBE TOP SCH ×2 (08:39→20:32)
[2018-08-24] MEDS: DICLOFENAC SODIUM 1% GEL 100 GM TUBE TP SCH ×4 (08:39→20:32)
[2018-08-24] MEDS: LIDOCAINE 5% PATCH TRANSDERM SCH (08:42)
--- NOTE | 2018-08-24 11:34 | CONS ---
Assessment/Plan Assessment/Plan Hospital Course (Demo Recall) No acute events per report, looks comfortable, no fevers Microbiology: All cultures negative WBC scan revealed area of increased activity in the right proximal thigh/right proximal femur; inflammatory/infectious process cannot be ruled out. MRI of right hip revealed mildly impacted fracture of the sub-capital left femoral neck no evident acute fracture of the right hip lesion in the right vastus lateralis questionable small abscess Antimicrobials: Vanco Cefepime Physical examination: Well-nourished well-developed ill-appearing middle-aged woman in no distress. Head atraumatic normocephalic sclera nonicteric, neck is supple, chest rise symmetrical, breath sounds diminished bases, heart S1-S2, abdomen soft, bowel sounds present, right upper extremity is swollen hot and painful to touch Assessment: 1. Sepsis ==> present on admission 2. Status post acute encephalopathy 3. S/p Right upper extremity cellulitis 3. S/p E coli ESBL UTI 4. History of CVA 5. Hypertension 6. Seizure disorder 7. Status post acute renal failure 8. Right hip questionable abscess Plan: Remains stable, continue antibiotics, f/u labs, neurology rec-s, pending A NA Consultation Date/Type/Reason Admit Date/Time Aug 12, 2018 at 12:45 Initial Consult Date Type of Consult id Requesting Provider: FELIX FERNANDES NP Date/Time of Note DATE: 08/24/18 TIME: 11:33 Exam/Review of Systems Exam Vitals Vital Signs Date Temp Pulse Resp B/P (MAP) Pulse Ox O2 O2 Flow FiO2 Time Delivery Rate 08/24/18 98.8 93 16 130/71 100 Room Air 07:13 (90) Intake and Output 08/23/18 08/23/18 08/24/18 1515:00 23:00 07:00 IntakeIntake Total 400 ml 650 ml 400 ml BalanceBalance 400 ml 650 ml 400 ml Results Result Diagram: 08/22/18 0534 08/22/18 0534 Results 24hrs Laboratory Tests Test 08/23/18 20:05 Vancomycin Level Trough 12.2 Medications Medication Current Medications IV Flush (NS 3 ml) 3 ml PER PROTOCOL IV ; Start 08/12/18 at 13:30 Ondansetron HCl (Zofran Inj) 4 mg Q6H PRN IV NAUSEA/VOMITING Last administered on 2/8/19at 11:14; Admin Dose 4 MG; Start 08/12/18 at 13:30 Acetaminophen (Tylenol Tab) 650 mg Q6H PRN PO .PAIN 1-3 OR TEMP Last administered on 08/24/18 06:04; Admin Dose 650 MG; Start 08/12/18 at 13:30 Acetaminophen (Tylenol Supp) 650 mg Q6H PRN [place] .PAIN 1-3 OR TEMP; Start 08/12/18 at 13:30 Acetaminophen/ Hydrocodone Bitart ([place] (5/325)) 1 tab Q6H PRN PO .MOD PAIN 4- 6 Last administered on 08/21/18 08:46; Admin Dose 1 TAB; Start 08/12/18 at 13:30 Clonidine HCl (Catapres-Tts 1 Patch) 1 patch Q7D TRANSDERM Last administered on 08/19/18 17:33; Admin Dose 1 PATCH; Start 08/12/18 at 17:00 Enoxaparin Sodium (Lovenox) 40 mg DAILY SC Last administered on 08/24/18 08:38; Admin Dose 40 MG; Start 08/13/18 at 09:00 Senna/Docusate Sodium (Senokot-S) 2 tab HS PO Last administered on 08/22/18 20:33; Admin Dose 2 TAB; Start 08/12/18 at 21:00 Diclofenac Sodium (Voltaren 1% Gel) 2 gm QID TP Last administered on 08/24/18 08:39; Admin Dose 2 GM; Start 08/12/18 at 17:00 Lacosamide (Vimpat Liq) 100 mg BID PO Last administered on 08/24/18 08:36; Admin Dose 100 MG; Start 08/12/18 at 21:00 Lactobacillus Acidophilus/ Rhamnosus (Culturelle) 1 cap BID PO Last administered on 08/24/18 08:37; Admin Dose 1 CAP; Start 08/12/18 at 21:00 Levothyroxine Sodium (Synthroid) 50 mcg BEFORE BREAKFAST PO Last administered on 08/24/18 06:04; Admin Dose 50 MCG; Start 08/13/18 at 07:00 Lidocaine (Lidoderm) 1 patch DAILY TRANSDERM Last administered on 08/24/18 08:42; Admin Dose 1 PATCH; Start 08/13/18 at 09:00 Nifedipine (Procardia Xl) 90 mg DAILY PO Last administered on 08/24/18 08:38; Admin Dose 90 MG; Start 08/13/18 at 09:00 Oxcarbazepine (Trileptal) 300 mg BID PO Last administered on 08/24/18 08:37; Admin Dose 300 MG; Start 08/12/18 at 21:00 Pantoprazole (Protonix Tab) 40 mg BID@0600,1800 PO Last administered on 08/24/18 06:04; Admin Dose 40 MG; Start 08/12/18 at 18:00 Risperidone (Risperdal) 0.25 mg BID PO Last administered on 08/24/18 08:38; Admin Dose 0.25 MG; Start 08/12/18 at 21:00 Ibuprofen (Motrin) 600 mg Q6H PRN PO MILD PAIN LEVEL 1-3 Last administered on 08/20/18 13:32; Admin Dose 600 MG; Start 08/13/18 at 01:00 Vancomycin HCl (Vanco Iv Per Pharmacy) VANCOMYCIN PER PHARMACY PER PROTOCOL XX ; Start 08/14/18 at 15:00 Cefepime HCl 50 ml @ 100 mls/hr Q24H IVPB Last administered on 08/23/18 20:58; Admin Dose 100 MLS/HR; Start 08/14/18 at 20:00 Morphine Sulfate (morphine) 6 mg Q4H PRN PO SEVERE PAIN LEVEL 7-10 Last administered on 08/22/18 01:41; Admin Dose 6 MG; Start 08/15/18 at 16:00 Hydralazine HCl (Apresoline) 10 mg Q6H PRN IV SBP>160 Last administered on 08/19/18 14:08; Admin Dose 10 MG; Start 08/18/18 at 17:00 Hydrocortisone (Cortef) 12.5 mg QAM PO Last administered on 08/24/18 08:36; Admin Dose 12.5 MG; Start 08/21/18 at 12:00 Hydrocortisone (Cortef) 7.5 mg DAILY@1500 PO Last administered on 08/23/18 16:00; Admin Dose 7.5 MG; Start 08/21/18 at 15:00 Hydrocortisone (Cortef) 2.5 mg HS PO Last administered on 08/23/18 21:04; Admin Dose 2.5 MG; Start 08/21/18 at 21:00 Vancomycin HCl 100 ml @ 100 mls/hr Q24H IVPB Last administered on 08/23/18at 22:13; Admin Dose 100 MLS/HR; Start 08/22/18 at 21:00 Potassium Chloride (Potassium Chloride Pwd/Soln) 40 meq DAILY PO Last administered on 08/24/18at 08:37; Admin Dose 40 MEQ; Start 08/22/18 at 18:00 Magnesium Oxide (Mag-Ox 400) 400 mg BID PO Last administered on 08/24/18at 08:37; Admin Dose 400 MG; Start 08/22/18 at 21:00 Losartan Potassium (Cozaar) 50 mg DAILY PO Last administered on 08/24/18at 08:37; Admin Dose 50 MG; Start 08/24/18 at 09:00 CAILIN ROBBINS NP Aug 24, 2018 11:34
--- NOTE | 2018-08-24 13:30 | CONS ---
Assessment/Plan Assessment/Plan Hospital Course 53 F c/ Hx of prior strokes c/b epilepsy...and other comorbidities...who reportedly presents for evaluation of ams. 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 The clinical picture suggests an acute toxic-metabolic encephalopathy.. Recurrent seizure is unlikely.. Recurrent stroke is unlikely.. Head CT is reassuringly without acute intracranial pathology. P: Start low dose asa for secondary stroke prevention when medically able Continued medical management per primary Continue Trileptal 300 mg bid for now; repeat trileptal level Continue Vimpat 100mg bid for now Reorient as necessary Limit sedating medications where possible PT/OT/ST as necessary Will follow clinically Consultation Date/Type/Reason Admit Date/Time Aug 12, 2018 at 12:45 Type of Consult Neurology Requesting Provider: FELIX FERNANDES NP Date/Time of Note DATE: 08/24/18 TIME: 13:28 24 HR Interval Summary Free Text/Dictation Continues medsurg monitoring. Pt states she's fine. Wants to get up and walk around. Exam Vital Signs Vitals Vital Signs Date Temp Pulse Resp B/P (MAP) Pulse Ox O2 O2 Flow FiO2 Time Delivery Rate 08/24/18 98.8 93 16 130/71 100 Room Air 07:13 (90) Intake and Output 08/23/18 08/23/18 08/24/18 1515:00 23:00 07:00 IntakeIntake Total 400 ml 650 ml 400 ml BalanceBalance 400 ml 650 ml 400 ml Exam PE: Gen Appearance: No Apparent Distress HEENT: Normocephalic Cardiovascular: Regular rate Abdomen: Soft Extremities: Dry NE: The patient was alert though slightly disoriented. Language was normal. Fund of knowledge was limited. Pupils were equal and reactive to light. There was no afferent pupillary defect. Visual craven were normal. Funduscopic examination was limited. Extra-ocular movements were full. Ptosis was absent. There was no nystagmus. Facial sensation was normal. Face was symmetric with normal strength. Hearing was intact. Palate movements were normal. Neck strength was normal. There was normal tongue bulk and speed of movement. Tone was normal. Muscle bulk was normal. I did not see fasciculations. Arms and legs were weak on the left. Vibration sensation was normal. Temperature and pinprick sensation was normal. Rapid alternating movements were normal. There was no dysmetria. There was no intention tremor. Gait was steady when ambulating with a FWW. Arm and leg reflexes were symmetric. Calloway's sign was absent. Plantar responses were flexor. SID LYNCH NP Aug 24, 2018 13:30
--- NOTE | 2018-08-24 13:44 | PDOCDIS ---
Discharge Instructions CONDITION [id number] Patient Condition: [id number] Stable ACTIVITY: [id number] Activity Restrictions: [id number] Slowly Increase Activity Avoid heavy lifting Do not Drive FOLLOW UP/APPOINTMENTS Follow-up Plan appt Dr Zhao 2wks Dr Ade Woody 2wks Dr Dan 2wks ANALISA MOSS MD Aug 24, 2018 13:44
[2018-08-24] MEDS ORDERED: POTA20PA23 PO (13:47)
[2018-08-24] MEDS ORDERED: MAGN400T27 PO (13:47)
[2018-08-24] MEDS ORDERED: LOSA25TA2 PO (13:47)
[2018-08-24 14:00] VITALS: BP 148/70; PULSE 92; RESP 16
[2018-08-24] MEDS: ASPIRIN (EC) 81 MG TAB PO SCH (14:28)
[2018-08-24] MEDS: METOPROLOL 25 MG TAB PO SCH ×2 (14:31→23:18)
--- NOTE | 2018-08-24 15:32 | DS ---
Date/Time of Note Date/Time of Note DATE: 08/24/18 TIME: 15:31 Discharge Summary Admission/Discharge Info Admit Date/Time Aug 12, 2018 at 12:45 Discharge Date/Time Patient Condition: Stable Procedures MRI RT HIP IMPRESSION: 1. Mildly impacted fracture of the subcapital left femoral neck is again seen. 2. No evident acute fracture in the right hip. 3. Within the likely right vastus lateralis there is a faintly visualized lesion demonstrating mild increased circumferential signal on T1 and proton density sequences. 4. This may represent a small abscess, and cannot be further characterized. 5. A contrast enhanced MRI examination of the right thigh would be more sensitive and specific. 6. Likely post traumatic low grade strain involving the right obturator externus and obturator internus. sic Hospital Course A/P 1. Sirs [multiple etio]. Additionally Sirs due to pelvic fracture/ pain. stable , finish atb for rue cellulitis/ pelvic abscess/ uti. rt vastus lateralis possible small abscess, for atbs [MRI contrast rt thigh prn]. post traumatic low grade strain, rt obturator externus & obturator internus, for conservative mngmnt. 2. Subacute pelvic fracture 3. Subacute left hip fracture on conservative management; sp ortho consult 4. Adrenal insufficiency, bp now elevated 5. Hypothyroidism 6. 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 stable for re-eval as outpatient. 9. Nonadherence to meds, for her endocrine processes. Presently excepting replacement therapy. 10. History of stroke 11. History of seizures? 12. Chr hallucinations for many months possible acute psychosis vs delirium. 13. Recent ESBL cystitis s/p Levaquin. 14. Ckd III 15. Dyslipidemia 16. Hypertension 17. Constipation 18. Mechanical fall fractures a few months back 19. Left femur subcapital fracture, subacute. On conservative management treat pain PT probably nwb. 20. Left pelvic fracture, subacute 21. L4 fracture 22. Secondary osteoporosis? 23. RUE cellulitis; no dvt, no abscess on ct. 24. Ftt, consider snf. Last time patient was unable to be at home for more than 48 hours. S: 08/20 rt arm pain 08/21 less distress. Less edema pain of right upper extremity. No diarrhea. 08/22: less distress. arm looks better. 08/23: Less right arm discomfort. No fever diarrhea. Family aware of snf option and agrees O: Vss PE No pallor reg ctab bs+ nt nd; no r r g hypotonia? Rue: less warmth/ edema around elbow Home Meds Active Scripts Magnesium Oxide* (Mag-Oxide*) 400 Mg Tablet, 400 MG PO BID for 7 Days, TAB Prov:ANALISA MOSS MD 08/24/18 Losartan Potassium* (Cozaar*) 25 Mg Tablet, 50 MG PO DAILY for 10 Days, #10 TAB Prov:ANALISA MOSS MD 08/24/18 Potassium Chloride (Potassium Chloride) 20 Meq Packet, 40 MEQ PO DAILY for 7 Days, PACKET Prov:ANALISA MOSS MD 08/24/18 Levothyroxine Sodium* (Levothyroxine Sodium*) 50 Mcg Tablet, 50 MCG PO BEFORE BR EAKFAST for 30 Days, #30 TAB Prov:ANALISA MOSS MD 08/10/18 Nifedipine (Procardia Xl) 90 Mg Tab.er.24, 90 MG PO DAILY for 10 Days, #10 TAB 1 Refill Prov:ANALISA MOSS MD 08/10/18 Ferrous Sulfate* (Ferrous Sulfate*) 325 Mg Tabec, 325 MG PO TID for 30 Days, #30 TAB 1 Refill Prov:ANALISA MOSS MD 08/10/18 Sennosides/Docusate Sodium (Dok Plus Tablet) 1 Each Tablet, 2 TAB PO HS for 7 Days, TAB Prov:ANALISA MOSS MD 08/09/18 Pantoprazole* (Pantoprazole*) 40 Mg Tablet.dr, 40 MG PO BID@0600,1800 for 10 Days Prov:ANALISA MOSS MD 08/09/18 Lactobacillus Rhamnosus GG (Culturelle) 1 Each Capsule, 1 CAP PO BID for 10 Days, CAP Prov:ANALISA MOSS MD 08/09/18 Risperidone* (Risperdal*) 0.25 Mg Tablet, 0.25 MG PO BID for 10 Days, TAB Prov:ANALISA MOSS MD 08/09/18 Lacosamide (Vimpat) 10 Mg/1 Ml Solution, 100 MG PO BID for 30 Days Prov:ANALISA MOSS MD 08/09/18 Oxcarbazepine* (Oxcarbazepine*) 300 Mg Tablet, 300 MG PO BID for 30 Days, TAB Prov:ANALISA MOSS MD 08/09/18 Reported Medications Sodium Bicarbonate* (Sodium Bicarbonate*) 650 Mg Tablet, 1950 MG PO TID, TAB 08/02/18 Ondansetron Hcl* (Zofran*) 4 Mg Tab, 4 MG PO Q6H PRN for NAUSEA AND OR VOMITING, TAB 08/02/18 Multivitamins* (Theragran*) 1 Tab Tab, 1 TAB PO DAILY, TAB 08/02/18 Lidocaine (Lidoderm) 1 Each Adh..patch, 1 EACH TP DAILY 08/02/18 Enoxaparin Sodium (Enoxaparin Sodium) 40 Mg/0.4 Ml Syringe, 40 MG SQ DAILY, SYR 08/02/18 Diclofenac Sodium* (Voltaren* Gel) 1% -100 Gm Gel, 2 GM TOP QID, #1 TUB 08/02/18 Clonidine Hcl* (Clonidine Hcl*) 0.1 Mg Tab, 0.1 MG PO BID PRN for ELEVATED BLOOD PRESSURE, TAB 08/02/18 Metoprolol Tartrate* (Lopressor*) 25 Mg Tab, 25 MG PO BID for HOLD IF BP <100 OR HR <55, #60 TAB 08/02/18 Cholecalciferol* (Vitamin D3*) 1,000 Unit Tablet, 1000 UNIT PO DAILY, TAB 08/02/18 Nifedipine* (Nifedipine ER*) 60 Mg Tablet.sa, 60 MG PO DAILY, TAB.SA 08/02/18 Atorvastatin Calcium* (Atorvastatin Calcium*) 20 Mg Tablet, 40 MG PO DAILY, #30 TAB 08/02/18 Acetaminophen (Acetaminophen) 325 Mg Tablet, 650 MG PO Q6 PRN for PAIN, TAB 08/02/18 Discontinued Reported Medications Loperamide Hcl* (Loperamide Hcl*) 2 Mg Cap, 2 MG PO QID PRN for DIARRHEA, CAP 08/02/18 Discontinued Scripts Metoprolol Tartrate* (Lopressor*) 50 Mg Tab, 50 MG PO BID for 10 Days, #20 TAB 1 Refill Prov:ANALISA MOSS MD 08/10/18 Docusate Sodium* (Colace*) 100 Mg Capsule, 100 MG PO TID, #30 CAP Prov:SARWAT CEDILLO 08/02/18 Follow-up Plan appt Dr Zhao 2wks Dr Ade Woody [address] Dan 2wks Primary Care Provider Care Physician No Primary Pending Labs Laboratory Tests Test 08/23/18 20:05 Vancomycin Level Trough 12.2 ug/ml (10.0-20.0) ANALISA MOSS MD Aug 24, 2018 15:32
--- NOTE | 2018-08-24 16:54 | PN ---
Date/Time of Note Date/Time of Note DATE: 08/24/18 TIME: 16:54 Assessment/Plan VTE Prophylaxis Risk score (from Nsg)>0 risk: 2 SCD applied (from Nsg): No SCD contraindicated: low risk/ambulating Pharmacological prophylaxis: LMWH Lines/Catheters IV Catheter Type (from Nrsg): PICC Line Central line still needed: Yes Urinary Cath still in place: No (DC'd tip intact) Assessment/Plan Hospital Course A/P 1. Sirs [multiple etio]. Additionally Sirs due to pelvic fracture/ pain. stable, finish atb for rue cellulitis/ pelvic abscess/ uti. rt vastus lateralis possible small abscess, for atbs [MRI contrast rt thigh prn]. post traumatic low grade strain, rt obturator externus & obturator internus, for conservative mngmnt. 2. Subacute pelvic fracture 3. Subacute left hip fracture on conservative management; sp ortho consult 4. Adrenal insufficiency, bp now elevated 5. Hypothyroidism 6. 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 stable for re-eval as outpatient. 9. Nonadherence to meds, for her endocrine processes. Presently excepting replacement therapy. 10. History of stroke 11. History of seizures? 12. Chr hallucinations for many months possible acute psychosis vs delirium. 13. Recent ESBL cystitis s/p Levaquin. 14. Ckd III 15. Dyslipidemia 16. Hypertension 17. Constipation 18. Mechanical fall fractures a few months back 19. Left femur subcapital fracture, subacute. On conservative management treat pain PT probably nwb. 20. Left pelvic fracture, subacute 21. L4 fracture 22. Secondary osteoporosis? 23. RUE cellulitis; no dvt, no abscess on ct. 24. Ftt, consider snf. Last time patient was unable to be at home for more than 48 hours. S: 2 rt arm pain 08/21 less distress. Less edema pain of right upper extremity. No diarrhea. 08/22: less distress. arm looks better. 08/23: Less right arm discomfort. No fever diarrhea. Family aware of snf option and agrees 08/24: Ambulating more. No anxiety agitation. O: Vss PE No pallor reg ctab bs+ nt nd; no r r g hypotonia? Rue: less warmth/ edema around elbow Result Diagram: 08/22/1834 08/22/18 0534 Results 24hrs Laboratory Tests Test 08/23/18 20:05 Vancomycin Level Trough 12.2 Exam/Review of Systems Exam Vitals Vital Signs Date Temp Pulse Resp B/P (MAP) Pulse Ox O2 O2 Flow FiO2 Time Delivery Rate 08/24/18 98.4 92 16 148/70 100 14:00 (96) 08/24/18 Room Air 07:13 Intake and Output 08/23/18 08/23/18 08/24/18 1515:00 23:00 07:00 IntakeIntake Total 400 ml 650 ml 400 ml BalanceBalance 400 ml 650 ml 400 ml Results Results 24hrs Laboratory Tests Test 08/23/18 20:05 Vancomycin Level Trough 12.2 Medications Medication Current Medications IV Flush (NS 3 ml) 3 ml PER PROTOCOL IV ; Start 08/12/18 at 13:30 Ondansetron HCl (Zofran Inj) 4 mg Q6H PRN IV NAUSEA/VOMITING Last administered on 08/17/18at 11:14; Admin Dose 4 MG; Start 08/12/18 at 13:30 Acetaminophen (Tylenol Tab) 650 mg Q6H PRN PO .PAIN 1-3 OR TEMP Last administered on 08/24/18 06:04; Admin Dose 650 MG; Start 08/12/18 at 13:30 Acetaminophen (Tylenol Supp) 650 mg Q6H PRN [place] .PAIN 1-3 OR TEMP; Start 08/12/18 at 13:30 Acetaminophen/ Hydrocodone Bitart ([place] (5/325)) 1 tab Q6H PRN PO .MOD PAIN 4- 6 Last administered on 08/21/18 08:46; Admin Dose 1 TAB; Start 08/12/18 at 13:30 Enoxaparin Sodium (Lovenox) 40 mg DAILY SC Last administered on 08/24/18 08:38; Admin Dose 40 MG; Start 08/13/18 at 09:00 Senna/Docusate Sodium (Senokot-S) 2 tab HS PO Last administered on 08/22/18 20:33; Admin Dose 2 TAB; Start 08/12/18 at 21:00 Diclofenac Sodium (Voltaren 1% Gel) 2 gm QID TP Last administered on 08/24/18 13:29; Admin Dose 2 GM; Start 08/12/18 at 17:00 Lacosamide (Vimpat Liq) 100 mg BID PO Last administered on 08/24/18 08:36; Admin Dose 100 MG; Start 08/12/18 at 21:00 Lactobacillus Acidophilus/ Rhamnosus (Culturelle) 1 cap BID PO Last adminis tered on 08/24/18 08:37; Admin Dose 1 CAP; Start 08/12/18 at 21:00 Levothyroxine Sodium (Synthroid) 50 mcg BEFORE BREAKFAST PO Last administered on 08/24/18 06:04; Admin Dose 50 MCG; Start 08/13/18 at 07:00 Lidocaine (Lidoderm) 1 patch DAILY TRANSDERM Last administered on 08/24/18 08:42; Admin Dose 1 PATCH; Start 08/13/18 at 09:00 Nifedipine (Procardia Xl) 90 mg DAILY PO Last administered on 08/24/18 08:38; Admin Dose 90 MG; Start 08/13/18 at 09:00 Oxcarbazepine (Trileptal) 300 mg BID PO Last administered on 08/24/18 08:37; Admin Dose 300 MG; Start 08/12/18 at 21:00 Pantoprazole (Protonix Tab) 40 mg BID@0600,1800 PO Last administered on 08/24/18 06:04; Admin Dose 40 MG; Start 08/12/18 at 18:00 Risperidone (Risperdal) 0.25 mg BID PO Last administered on 08/24/18 08:38; Admin Dose 0.25 MG; Start 08/12/18 at 21:00 Ibuprofen (Motrin) 600 mg Q6H PRN PO MILD PAIN LEVEL 1-3 Last administered on 08/20/18 13:32; Admin Dose 600 MG; Start 08/13/18 at 01:00 Vancomycin HCl (Vanco Iv Per Pharmacy) VANCOMYCIN PER PHARMACY PER PROTOCOL XX ; Start 08/14/18 at 15:00 Cefepime HCl 50 ml @ 100 mls/hr Q24H IVPB Last administered on 08/23/18 20:58; Admin Dose 100 MLS/HR; Start 08/14/18 at 20:00 Morphine Sulfate (morphine) 6 mg Q4H PRN PO SEVERE PAIN LEVEL 7-10 Last administered on 08/22/18 01:41; Admin Dose 6 MG; Start 08/15/18 at 16:00 Hydralazine HCl (Apresoline) 10 mg Q6H PRN IV SBP>160 Last administered on 08/19/18 14:08; Admin Dose 10 MG; Start 08/18/18 at 17:00 Hydrocortisone (Cortef) 12.5 mg QAM PO Last administered on 08/24/18 08:36; Admin Dose 12.5 MG; Start 08/21/18 at 12:00 Hydrocortisone (Cortef) 7.5 mg DAILY@1500 PO Last administered on 08/24/18 14:29; Admin Dose 7.5 MG; Start 08/21/18 at 15:00 Hydrocortisone (Cortef) 2.5 mg HS PO Last administered on 08/23/18 21:04; Admin Dose 2.5 MG; Start 08/21/18 at 21:00 Vancomycin HCl 100 ml @ 100 mls/hr Q24H IVPB Last administered on 08/23/18 22:13; Admin Dose 100 MLS/HR; Start 08/22/18 at 21:00 Potassium Chloride (Potassium Chloride Pwd/Soln) 40 meq DAILY PO Last administered on 08/24/18 08:37; Admin Dose 40 MEQ; Start 08/22/18 at 18:00 Magnesium Oxide (Mag-Ox 400) 400 mg BID PO Last administered on 08/24/18 08:37; Admin Dose 400 MG; Start 08/22/18 at 21:00 Losartan Potassium (Cozaar) 50 mg DAILY PO Last administered on 08/24/18 08:37; Admin Dose 50 MG; Start 08/24/18 at 09:00 Aspirin (Halfprin) 81 mg DAILY PO Last administered on 08/24/18 14:28; Admin Dose 81 MG; Start 08/24/18 at 14:00 Metoprolol Tartrate (Lopressor) 25 mg BID PO Last administered on 08/24/18 14:31; Admin Dose 25 MG; Start 08/24/18 at 14:00 ANALISA MOSS MD Aug 24, 2018 16:54
[2018-08-24 20:00] VITALS: BP 139/77; RESP 17
[2018-08-24] MEDS: CEFEPIME 1GM/50 ML (PMX) 50 ML IVPB SCH (20:29)
[2018-08-24] MEDS: SENNA/DOCUSATE NA (8.6MG/50MG) TAB PO SCH (20:30)
[2018-08-24] MEDS: NA BICARBONATE 650 MG TAB PO SCH (20:31)
[2018-08-24] MEDS: VANCOMYCIN 500 MG (PMX) 100 ML IVPB SCH (21:27)
[2018-08-24 23:18] VITALS: BP 140/70; PULSE 96
[2018-08-25 02:00] VITALS: BP 145/70; PULSE 74; RESP 19
[2018-08-25] MEDS: PANTOPRAZOLE (EC) 40 MG TAB PO SCH ×2 (06:06→17:18)
[2018-08-25] MEDS: LEVOTHYROXINE 50 MCG TAB PO SCH (06:06)
[2018-08-25 08:00] VITALS: BP 137/73; PULSE 81; RESP 18
[2018-08-25] MEDS: HYDROCORTISONE 5 MG TAB PO SCH ×3 (08:40→20:43)
[2018-08-25] MEDS: NIFEdipine (XL) 60 MG TAB PO SCH (08:40)
[2018-08-25] MEDS: LACOSAMIDE (100 MG/10 ML PO SYR) PO SCH ×2 (08:40→20:45)
[2018-08-25] MEDS: MAGNESIUM OXIDE 400 MG TAB PO SCH ×2 (08:40→20:44)
[2018-08-25] MEDS: LACTOBACILLUS RHAMNOSUS CAP PO SCH ×2 (08:40→20:43)
[2018-08-25] MEDS: ASPIRIN (EC) 81 MG TAB PO SCH (08:41)
[2018-08-25] MEDS: LOSARTAN 25 MG TAB PO SCH (08:41)
[2018-08-25] MEDS: METOPROLOL 25 MG TAB PO SCH ×2 (08:41→20:44)
[2018-08-25] MEDS: POTASSIUM CHLORIDE 20 MEQ POWDER FOR ORAL SOLN PO SCH (08:41)
[2018-08-25] MEDS: DICLOFENAC SODIUM 1% GEL 100 GM TUBE TP SCH ×4 (08:42→20:45)
[2018-08-25] MEDS: OXCARBAZEPINE 300 MG TAB PO SCH ×2 (08:42→20:44)
[2018-08-25] MEDS: RISPERIDONE 0.25 MG TAB PO SCH ×2 (08:42→20:44)
[2018-08-25] MEDS: NA BICARBONATE 650 MG TAB PO SCH ×3 (08:42→20:42)
[2018-08-25] MEDS: BALSAM PERU/CASTOR OIL 60 GM TUBE TOP SCH ×2 (08:42→20:45)
[2018-08-25] MEDS: LIDOCAINE 5% PATCH TRANSDERM SCH (08:43)
[2018-08-25] MEDS: ENOXAPARIN 40 MG/0.4 ML SYG SC SCH (08:45)
--- NOTE | 2018-08-25 10:58 | CONS ---
Assessment/Plan Assessment/Plan Hospital Course 53 F c/ Hx of prior strokes c/b epilepsy...and other comorbidities...who reportedly presents for evaluation of ams. 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 The clinical picture suggests an acute toxic-metabolic encephalopathy.. Recurrent seizure is unlikely.. Recurrent stroke is unlikely.. Head CT is reassuringly without acute intracranial pathology. P: Start low dose asa for secondary stroke prevention when medically able Continued medical management per primary Continue Trileptal 300 mg bid for now; repeat trileptal level Continue Vimpat 100mg bid for now Reorient as necessary Limit sedating medications where possible PT/OT/ST as necessary Will follow clinically Consultation Date/Type/Reason Admit Date/Time Aug 12, 2018 at 12:45 Type of Consult Neurology Reason for Consultation ams Requesting Provider: FELIX FERNANDES NP Date/Time of Note DATE: 08/25/18 TIME: 10:57 24 HR Interval Summary Free Text/Dictation Continues acute care Exam Vital Signs Vitals Vital Signs Date Temp Pulse Resp B/P (MAP) Pulse Ox O2 O2 Flow FiO2 Time Delivery Rate 08/25/18 98.1 81 18 137/73 100 Room Air 08:00 (94) Intake and Output 08/24/18 08/24/18 08/25/18 1515:00 23:00 07:00 IntakeIntake Total 150 ml 400 ml BalanceBalance 150 ml 400 ml Exam comprehensive completed; stable from prior PATRIC LAWLER Aug 25, 2018 10:58
--- NOTE | 2018-08-25 13:53 | CONS ---
Assessment/Plan Assessment/Plan Hospital Course (Demo Recall) ID PROGRESS NOTE CURRENT ABX: DAY #14 => Vanco IV + Cefepime 08/25/18 0638 08/25/18 0638 24H INTERVAL SUMMARY * Clinically stable - No acute events per report, looks comfortable, no fevers * WBC scan revealed area of increased activity in the right proximal thigh/right proximal femur; inflammatory/infectious process cannot be ruled out. * MRI of right hip revealed mildly impacted fracture of the sub-capital left femoral neck no evident acute fracture of the right hip lesion in the right vastus lateralis questionable small abscess * 08/21/18 CT RUEXT: IMPRESSION:Diffuse soft tissue swelling, most pronounced at the level of the elbow, without loculated or drainable abscess detected. Findings suggest cellulitis.No CT evidence of osteomyelitis. No soft tissue gas. MICRO/OTHER * Microbiology: All cultures negative PHYSICAL EXAMINATION: GENERAL: Afebrile, VSS HEENT: AT, NC, anicteric NECK: Supple, trach midline CHEST: Equal chest rise bilaterally, without dyspnea on observation HEART: Pulse RRR ABDOMEN: Soft / NT EXTREMITIES: Warm, dry => RUEXT edema /erythema resolving SKIN: No rash, no diaphoresis ID ASSESSMENT 53 yo F admit with: 1. Sepsis ==> present on admission 2. Status post acute encephalopathy 3. S/p Right upper extremity cellulitis 3. S/p E coli ESBL UTI 4. History of CVA 5. Hypertension 6. Seizure disorder 7. Status post acute renal failure 8. Hx of pelvis fracture 9. Right hip sublinical fx w/questionable abscess * WBC scan revealed area of increased activity in the right proximal thigh/right proximal femur; inflammatory/infectious process cannot be ruled out. * MRI of right hip revealed mildly impacted fracture of the sub-capital left femoral neck no evident acute fracture of the right hip lesion in the right vastus lateralis questionable small abscess (-)MRSA Nares ABX ALLERGIES: KNDA INVASIVES: PIV CURRENT ABX: DAY #14 => Vanco IV + Cefepime ID RECOMMENDATIONS/PLAN: 1. Continue current ABX -- will discuss length of ABX course w/Dr. Dan . Consultation Date/Type/Reason Admit Date/Time Aug 12, 2018 at 12:45 Initial Consult Date Requesting Provider: FELIX FERNANDES NP Date/Time of Note DATE: 08/25/18 TIME: 13:53 Exam/Review of Systems Exam Vitals Vital Signs Date Temp Pulse Resp B/P (MAP) Pulse Ox O2 O2 Flow FiO2 Time Delivery Rate 08/25/18 98.1 81 18 137/73 100 Room Air 08:00 (94) Intake and Output 08/24/18 08/24/18 08/25/18 1515:00 23:00 07:00 IntakeIntake Total 150 ml 400 ml BalanceBalance 150 ml 400 ml Results Result Diagram: 08/25/18 0638 08/25/18 0638 Results 24hrs Laboratory Tests Test 08/25/18 06:37 08/25/18 06:38 Blood Urea Nitrogen 15 15 Creatinine 0.84 0.80 White Blood Count 7.4 # Red Blood Count 2.99 L Hemoglobin 9.1 L Hematocrit 28.2 L Mean Corpuscular Volume 94.3 Mean Corpuscular Hemoglobin 30.4 Mean Corpuscular Hemoglobin Concent 32.3 Red Cell Distribution Width 16.7 H Platelet Count 574 #H Mean Platelet Volume 8.4 Immature Granulocytes % 2.700 H Neutrophils % 49.6 Lymphocytes % 35.5 Monocytes % 9.9 Eosinophils % 1.5 Basophils % 0.8 Nucleated Red Blood Cells % 0.0 Immature Granulocytes # 0.200 H Neutrophils # 3.7 Lymphocytes # 2.6 Monocytes # 0.7 Eosinophils # 0.1 Basophils # 0.1 Nucleated Red Blood Cells # 0.0 Sodium Level 136 Potassium Level 4.8 Chloride Level 114 H Carbon Dioxide Level 15 L Anion Gap 7 Est Glomerular Filtrat Rate mL/min > 60 Glucose Level 69 L Calcium Level 8.9 Medications Medication Current Medications IV Flush (NS 3 ml) 3 ml PER PROTOCOL IV ; Start 08/12/18 at 13:30 Ondansetron HCl (Zofran Inj) 4 mg Q6H PRN IV NAUSEA/VOMITING Last administered on 08/17/18at 11:14; Admin Dose 4 MG; Start 08/12/18 at 13:30 Acetaminophen (Tylenol Tab) 650 mg Q6H PRN PO .PAIN 1-3 OR TEMP Last administer ed on 08/24/18at 06:04; Admin Dose 650 MG; Start 08/12/18 at 13:30 Acetaminophen (Tylenol Supp) 650 mg Q6H PRN [place] .PAIN 1-3 OR TEMP; Start 08/12/18 at 13:30 Acetaminophen/ Hydrocodone Bitart ([place] (5/325)) 1 tab Q6H PRN PO .MOD PAIN 4- 6 Last administered on 08/21/18 08:46; Admin Dose 1 TAB; Start 08/12/18 at 13:30 Enoxaparin Sodium (Lovenox) 40 mg DAILY SC Last administered on 08/25/18 08:45; Admin Dose 40 MG; Start 08/13/18 at 09:00 Senna/Docusate Sodium (Senokot-S) 2 tab HS PO Last administered on 08/24/18 20:30; Admin Dose 2 TAB; Start 08/12/18 at 21:00 Diclofenac Sodium (Voltaren 1% Gel) 2 gm QID TP Last administered on 08/25/18 12:30; Admin Dose 2 GM; Start 08/12/18 at 17:00 Lacosamide (Vimpat Liq) 100 mg BID PO Last administered on 08/25/18 08:40; Admin Dose 100 MG; Start 08/12/18 at 21:00 Lactobacillus Acidophilus/ Rhamnosus (Culturelle) 1 cap BID PO Last administered on 08/25/18 08:40; Admin Dose 1 CAP; Start 08/12/18 at 21:00 Levothyroxine Sodium (Synthroid) 50 mcg BEFORE BREAKFAST PO Last administered on 08/25/18 06:06; Admin Dose 50 MCG; Start 08/13/18 at 07:00 Lidocaine (Lidoderm) 1 patch DAILY TRANSDERM Last administered on 08/25/18 08:43; Admin Dose 1 PATCH; Start 08/13/18 at 09:00 Oxcarbazepine (Trileptal) 300 mg BID PO Last administered on 08/25/18 08:42; Admin Dose 300 MG; Start 08/12/18 at 21:00 Pantoprazole (Protonix Tab) 40 mg BID@0600,1800 PO Last administered on 08/25/18 06:06; Admin Dose 40 MG; Start 08/12/18 at 18:00 Risperidone (Risperdal) 0.25 mg BID PO Last administered on 08/25/18 08:42; Admin Dose 0.25 MG; Start 08/12/18 at 21:00 Ibuprofen (Motrin) 600 mg Q6H PRN PO MILD PAIN LEVEL 1-3 Last administered on 08/20/18 13:32; Admin Dose 600 MG; Start 08/13/18 at 01:00 Vancomycin HCl (Vanco Iv Per Pharmacy) VANCOMYCIN PER PHARMACY PER PROTOCOL XX ; Start 08/14/18 at 15:00 Cefepime HCl 50 ml @ 100 mls/hr Q24H IVPB Last administered on 08/24/18 20:29; Admin Dose 100 MLS/HR; Start 08/14/18 at 20:00 Morphine Sulfate (morphine) 6 mg Q4H PRN PO SEVERE PAIN LEVEL 7-10 Last administered on 08/22/18 01:41; Admin Dose 6 MG; Start 08/15/18 at 16:00 Hydralazine HCl (Apresoline) 10 mg Q6H PRN IV SBP>160 Last administered on 08/19/18 14:08; Admin Dose 10 MG; Start 08/18/18 at 17:00 Hydrocortisone (Cortef) 12.5 mg QAM PO Last administered on 08/25/18 08:40; Admin Dose 12.5 MG; Start 08/21/18 at 12:00 Hydrocortisone (Cortef) 7.5 mg DAILY@1500 PO Last administered on 08/24/18 14:29; Admin Dose 7.5 MG; Start 08/21/18 at 15:00 Hydrocortisone (Cortef) 2.5 mg HS PO Last administered on 08/24/18 20:30; Admin Dose 2.5 MG; Start 08/21/18 at 21:00 Vancomycin HCl 100 ml @ 100 mls/hr Q24H IVPB Last administered on 08/24/18 21:27; Admin Dose 100 MLS/HR; Start 08/22/18 at 21:00 Potassium Chloride (Potassium Chloride Pwd/Soln) 40 meq DAILY PO Last administered on 08/25/18 08:41; Admin Dose 40 MEQ; Start 08/22/18 at 18:00 Magnesium Oxide (Mag-Ox 400) 400 mg BID PO Last administered on 08/25/18 08:40; Admin Dose 400 MG; Start 08/22/18 at 21:00 Losartan Potassium (Cozaar) 50 mg DAILY PO Last administered on 08/25/18 08:41; Admin Dose 50 MG; Start 08/24/18 at 09:00 Aspirin (Halfprin) 81 mg DAILY PO Last administered on 08/25/18 08:41; Admin Dose 81 MG; Start 08/24/18 at 14:00 Metoprolol Tartrate (Lopressor) 25 mg BID PO Last administered on 08/25/18 08:41; Admin Dose 25 MG; Start 08/24/18 at 14:00 Nifedipine (Procardia Xl) 60 mg DAILY PO Last administered on 08/25/18 08:40; Admin Dose 60 MG; Start 08/25/18 at 09:00 Sodium Bicarbonate (Sodium Bicarbonate Tab) 1,950 mg TID PO Last administered on 08/25/18at 12:30; Admin Dose 1,950 MG; Start 08/24/18 at 21:00 CORY SAMUELS NP Aug 25, 2018 13:53
[2018-08-25 14:00] VITALS: BP 137/73; PULSE 87; RESP 18
--- NOTE | 2018-08-25 17:54 | PN ---
Date/Time of Note Date/Time of Note DATE: 08/25/18 TIME: 17:52 Assessment/Plan VTE Prophylaxis Risk score (from Nsg)>0 risk: 3 SCD applied (from Ns): No SCD contraindicated: low risk/ambulating Pharmacological prophylaxis: LMWH Lines/Catheters IV Catheter Type (from Nrsg): Mid Line Urinary Cath still in place: No (DC'd tip intact) Assessment/Plan Hospital Course A/P 1. Sirs [multiple etio]. Additionally Sirs due to pelvic fracture/ pain. stable, finish atb for rue cellulitis/ pelvic abscess/ uti. rt vastus lateralis possible small abscess, for atbs [MRI contrast rt thigh prn]. post traumatic low grade strain, rt obturator externus & obturator internus, for conservative mngmnt. 2. Subacute pelvic fracture 3. Subacute left hip fracture on conservative management; sp ortho consult 4. Adrenal insufficiency, stable 5. Hypothyroidism 6. 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 stable for re-eval as outpatient. 9. Nonadherence to meds, for her endocrine processes. Presently excepting replacement therapy. 10. History of stroke 11. History of seizures? 12. Chr hallucinations for many months possible acute psychosis vs delirium. 13. Recent ESBL cystitis s/p Levaquin. 14. Ckd III 15. Dyslipidemia 16. Hypertension 17. Constipation 18. Mechanical fall fractures a few months back 19. Left femur subcapital fracture, subacute. On conservative management treat pain PT probably nwb. 20. Left pelvic fracture, subacute 21. L4 fracture 22. Secondary osteoporosis? 23. RUE cellulitis; no dvt, no abscess on ct. 24. Ftt, consider/ agrees to snf. Last time patient was unable to be at home for more than 48 hours. S: 08/20 rt arm pain 08/21 less distress. Less edema pain of right upper extremity. No diarrhea. 08/22: less distress. arm looks better. 08/23: Less right arm discomfort. No fever diarrhea. Family aware of snf option and agrees 08/24: Ambulating more. No anxiety agitation. 08/25: no distress. pending snf placement O: Vss PE No pallor reg ctab bs+ nt nd; no r r g Rue: less warmth/ edema around elbow Result Diagram: 08/25/18 0638 08/25/18 0638 Results 24hrs Laboratory Tests Test 08/25/18 06:37 08/25/18 06:38 Blood Urea Nitrogen 15 15 Creatinine 0.84 0.80 White Blood Count 7.4 # Red Blood Count 2.99 L Hemoglobin 9.1 L Hematocrit 28.2 L Mean Corpuscular Volume 94.3 Mean Corpuscular Hemoglobin 30.4 Mean Corpuscular Hemoglobin Concent 32.3 Red Cell Distribution Width 16.7 H Platelet Count 574 #H Mean Platelet Volume 8.4 Immature Granulocytes % 2.700 H Neutrophils % 49.6 Lymphocytes % 35.5 Monocytes % 9.9 Eosinophils % 1.5 Basophils % 0.8 Nucleated Red Blood Cells % 0.0 Immature Granulocytes # 0.200 H Neutrophils # 3.7 Lymphocytes # 2.6 Monocytes # 0.7 Eosinophils # 0.1 Basophils # 0.1 Nucleated Red Blood Cells # 0.0 Sodium Level 136 Potassium Level 4.8 Chloride Level 114 H Carbon Dioxide Level 15 L Anion Gap 7 Est Glomerular Filtrat Rate mL/min > 60 Glucose Level 69 L Calcium Level 8.9 Exam/Review of Systems Exam Vitals Vital Signs Date Temp Pulse Resp B/P (MAP) Pulse Ox O2 O2 Flow FiO2 Time Delivery Rate 08/25/18 97.6 87 18 137/73 99 Room Air 14:00 (94) Intake and Output 08/24/18 08/24/18 08/25/18 1515:00 23:00 07:00 IntakeIntake Total 150 ml 400 ml BalanceBalance 150 ml 400 ml Results Results 24hrs Laboratory Tests Test 08/25/18 06:37 08/25/18 06:38 Blood Urea Nitrogen 15 15 Creatinine 0.84 0.80 White Blood Count 7.4 # Red Blood Count 2.99 L Hemoglobin 9.1 L Hematocrit 28.2 L Mean Corpuscular Volume 94.3 Mean Corpuscular Hemoglobin 30.4 Mean Corpuscular Hemoglobin Concent 32.3 Red Cell Distribution Width 16.7 H Platelet Count 574 #H Mean Platelet Volume 8.4 Immature Granulocytes % 2.700 H Neutrophils % 49.6 Lymphocytes % 35.5 Monocytes % 9.9 Eosinophils % 1.5 Basophils % 0.8 Nucleated Red Blood Cells % 0.0 Immature Granulocytes # 0.200 H Neutrophils # 3.7 Lymphocytes # 2.6 Monocytes # 0.7 Eosinophils # 0.1 Basophils # 0.1 Nucleated Red Blood Cells # 0.0 Sodium Level 136 Potassium Level 4.8 Chloride Level 114 H Carbon Dioxide Level 15 L Anion Gap 7 Est Glomerular Filtrat Rate mL/min > 60 Glucose Level 69 L Calcium Level 8.9 Medications Medication Current Medications IV Flush (NS 3 ml) 3 ml PER PROTOCOL IV ; Start 08/12/18 at 13:30 Ondansetron HCl (Zofran Inj) 4 mg Q6H PRN IV NAUSEA/VOMITING Last administered on 08/17/18 11:14; Admin Dose 4 MG; Start 08/12/18 at 13:30 Acetaminophen (Tylenol Tab) 650 mg Q6H PRN PO .PAIN 1-3 OR TEMP Last administered on 08/24/18 06:04; Admin Dose 650 MG; Start 08/12/18 at 13:30 Acetaminophen (Tylenol Supp) 650 mg Q6H PRN [place] .PAIN 1-3 OR TEMP; Start 08/12/18 at 13:30 Acetaminophen/ Hydrocodone Bitart ([place] (5/325)) 1 tab Q6H PRN PO .MOD PAIN 4- 6 Last administered on 08/21/18 08:46; Admin Dose 1 TAB; Start 08/12/18 at 13:30 Enoxaparin Sodium (Lovenox) 40 mg DAILY SC Last administered on 08/25/18 08:45; Admin Dose 40 MG; Start 08/13/18 at 09:00 Senna/Docusate Sodium (Senokot-S) 2 tab HS PO Last administered on 08/24/18 20:30; Admin Dose 2 TAB; Start 08/12/18 at 21:00 Diclofenac Sodium (Voltaren 1% Gel) 2 gm QID TP Last administered on 08/25/18 16:27; Admin Dose 2 GM; Start 08/12/18 at 17:00 Lacosamide (Vimpat Liq) 100 mg BID PO Last administered on 08/25/18 08:40; Admin Dose 100 MG; Start 08/12/18 at 21:00 Lactobacillus Acidophilus/ Rhamnosus (Culturelle) 1 cap BID PO Last administered on 08/25/18 08:40; Admin Dose 1 CAP; Start 08/12/18 at 21:00 Levothyroxine Sodium (Synthroid) 50 mcg BEFORE BREAKFAST PO Last administered on 08/25/18 06:06; Admin Dose 50 MCG; Start 08/13/18 at 07:00 Lidocaine (Lidoderm) 1 patch DAILY TRANSDERM Last administered on 08/25/18 08: 43; Admin Dose 1 PATCH; Start 08/13/18 at 09:00 Oxcarbazepine (Trileptal) 300 mg BID PO Last administered on 08/25/18 08:42; Admin Dose 300 MG; Start 08/12/18 at 21:00 Pantoprazole (Protonix Tab) 40 mg BID@0600,1800 PO Last administered on 08/25/18 17:18; Admin Dose 40 MG; Start 08/12/18 at 18:00 Risperidone (Risperdal) 0.25 mg BID PO Last administered on 08/25/18 08:42; Admin Dose 0.25 MG; Start 08/12/18 at 21:00 Ibuprofen (Motrin) 600 mg Q6H PRN PO MILD PAIN LEVEL 1-3 Last administered on 13:32; Admin Dose 600 MG; Start 08/13/18 at 01:00 Vancomycin HCl (Vanco Iv Per Pharmacy) VANCOMYCIN PER PHARMACY PER PROTOCOL XX ; Start 08/14/18 at 15:00 Cefepime HCl 50 ml @ 100 mls/hr Q24H IVPB Last administered on 08/24/18 20:29; Admin Dose 100 MLS/HR; Start 08/14/18 at 20:00 Morphine Sulfate (morphine) 6 mg Q4H PRN PO SEVERE PAIN LEVEL 7-10 Last administered on 08/22/18 01:41; Admin Dose 6 MG; Start 08/15/18 at 16:00 Hydralazine HCl (Apresoline) 10 mg Q6H PRN IV SBP>160 Last administered on 08/19/18 14:08; Admin Dose 10 MG; Start 08/18/18 at 17:00 Hydrocortisone (Cortef) 12.5 mg QAM PO Last administered on 08/25/18 08:40; Admin Dose 12.5 MG; Start 08/21/18 at 12:00 Hydrocortisone (Cortef) 7.5 mg DAILY@1500 PO Last administered on 08/25/18 16:26; Admin Dose 7.5 MG; Start 08/21/18 at 15:00 Hydrocortisone (Cortef) 2.5 mg HS PO Last administered on 08/24/18 20:30; Admin Dose 2.5 MG; Start 08/21/18 at 21:00 Vancomycin HCl 100 ml @ 100 mls/hr Q24H IVPB Last administered on 08/24/18 21:27; Admin Dose 100 MLS/HR; Start 08/22/18 at 21:00 Potassium Chloride (Potassium Chloride Pwd/Soln) 40 meq DAILY PO Last administered on 08/25/18 08:41; Admin Dose 40 MEQ; Start 08/22/18 at 18:00 Magnesium Oxide (Mag-Ox 400) 400 mg BID PO Last administered on 08/25/18 08:40; Admin Dose 400 MG; Start 08/22/18 at 21:00 Losartan Potassium (Cozaar) 50 mg DAILY PO Last administered on 08/25/18 08:41; Admin Dose 50 MG; Start 08/24/18 at 09:00 Aspirin (Halfprin) 81 mg DAILY PO Last administered on 08/25/18 08:41; Admin Dose 81 MG; Start 08/24/18 at 14:00 Metoprolol Tartrate (Lopressor) 25 mg BID PO Last administered on 08/25/18 08:41; Admin Dose 25 MG; Start 08/24/18 at 14:00 Nifedipine (Procardia Xl) 60 mg DAILY PO Last administered on 08/25/18 08:40; Admin Dose 60 MG; Start 08/25/18 at 09:00 Sodium Bicarbonate (Sodium Bicarbonate Tab) 1,950 mg TID PO Last administered on 08/25/18 12:30; Admin Dose 1,950 MG; Start 08/24/18 at 21:00 ANALISA MOSS MD Aug 25, 2018 17:54
[2018-08-25 19:23] VITALS: BP 143/80; PULSE 89; RESP 18
[2018-08-25] MEDS: CEFEPIME 1GM/50 ML (PMX) 50 ML IVPB SCH (20:42)
[2018-08-25] MEDS: SENNA/DOCUSATE NA (8.6MG/50MG) TAB PO SCH (20:42)
[2018-08-25] MEDS: VANCOMYCIN 500 MG (PMX) 100 ML IVPB SCH (21:23)
[2018-08-26] VITALS: BP 145/77; PULSE 73; RESP 18
[2018-08-26] MEDS: LEVOTHYROXINE 50 MCG TAB PO SCH (06:20)
[2018-08-26] MEDS: PANTOPRAZOLE (EC) 40 MG TAB PO SCH (06:21)
[2018-08-26 07:19] VITALS: BP 153/82; PULSE 82; RESP 18
[2018-08-26] MEDS: DICLOFENAC SODIUM 1% GEL 100 GM TUBE TP SCH ×2 (09:00→12:28)
[2018-08-26] MEDS: POTASSIUM CHLORIDE 20 MEQ POWDER FOR ORAL SOLN PO SCH ×2 (09:00→09:22)
[2018-08-26] MEDS: HYDROCORTISONE 5 MG TAB PO SCH ×2 (09:21→15:16)
[2018-08-26] MEDS: NA BICARBONATE 650 MG TAB PO SCH ×2 (09:21→12:28)
[2018-08-26] MEDS: OXCARBAZEPINE 300 MG TAB PO SCH (09:22)
[2018-08-26] MEDS: LACTOBACILLUS RHAMNOSUS CAP PO SCH (09:22)
[2018-08-26] MEDS: NIFEdipine (XL) 60 MG TAB PO SCH (09:23)
[2018-08-26] MEDS: METOPROLOL 25 MG TAB PO SCH (09:24)
[2018-08-26] MEDS: MAGNESIUM OXIDE 400 MG TAB PO SCH (09:24)
[2018-08-26] MEDS: LIDOCAINE 5% PATCH TRANSDERM SCH (09:26)
[2018-08-26] MEDS: LOSARTAN 25 MG TAB PO SCH (09:26)
[2018-08-26] MEDS: LACOSAMIDE (100 MG/10 ML PO SYR) PO SCH (09:26)
[2018-08-26] MEDS: RISPERIDONE 0.25 MG TAB PO SCH (09:26)
[2018-08-26] MEDS: ASPIRIN (EC) 81 MG TAB PO SCH (09:26)
[2018-08-26] MEDS: BALSAM PERU/CASTOR OIL 60 GM TUBE TOP SCH (09:27)
[2018-08-26] MEDS: ENOXAPARIN 40 MG/0.4 ML SYG SC SCH (09:28)
--- NOTE | 2018-08-26 12:35 | CONS ---
Assessment/Plan Assessment/Plan Hospital Course 53 F c/ Hx of prior strokes c/b epilepsy...and other comorbidities...who reportedly presents for evaluation of ams. 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 The clinical picture suggests an acute toxic-metabolic encephalopathy.. Recurrent seizure is unlikely.. Recurrent stroke is unlikely.. Head CT is reassuringly without acute intracranial pathology. P: Start low dose asa for secondary stroke prevention when medically able Continued medical management per primary Continue Trileptal 300 mg bid for now; repeat trileptal level Continue Vimpat 100mg bid for now Reorient as necessary Limit sedating medications where possible PT/OT/ST as necessary Will follow clinically Consultation Date/Type/Reason Admit Date/Time Aug 12, 2018 at 12:45 Type of Consult Neurology Reason for Consultation ams Requesting Provider: FELIX FERNANDES NP Date/Time of Note DATE: 08/26/18 TIME: 12:35 24 HR Interval Summary Free Text/Dictation Continues acute care Exam Vital Signs Vitals Vital Signs Date Temp Pulse Resp B/P (MAP) Pulse Ox O2 O2 Flow FiO2 Time Delivery Rate 08/26/18 98.4 82 18 153/82 100 07:19 (105) 08/25/18 Room Air 14:00 Intake and Output 08/25/18 08/25/18 08/26/18 1515:00 23:00 07:00 IntakeIntake Total 380 ml 648 ml 118 ml BalanceBalance 380 ml 648 ml 118 ml Exam Comprehensive: stable from prior PATRIC LAWLER Aug 26, 2018 12:35
[2018-08-26 14:26] VITALS: BP 158/78; PULSE 90; RESP 18
--- NOTE | 2018-08-26 14:54 | DS ---
Date/Time of Note Date/Time of Note DATE: 08/26/18 TIME: 14:44 Discharge Summary Admission/Discharge Info Admit Date/Time Aug 12, 2018 at 12:45 Discharge Date/Time Patient Condition: Stable Consults Dr Dan ID Dr Woody Ortho Dr [facility]connor Endocrin[facility] Procedures Pelvic x-ray fINDINGS: Normal mineralization, architecture and alignment. There is no change in the mildly displaced impacted subcapital fracture of the left femoral neck. There are no significant degenerative changes. Unremarkable soft tissues. There is a Flowers catheter within the urinary bladder. -Unchanged impacted mildly displaced fracture of the left femoral neck. Right leg x-ray FINDINGS: No evidence of acute fractures or dislocations. The bony mineralization is normal. No focal bony blastic or lytic lesions or erosions. Soft tissues are unremarkable. IMPRESSION: No evidence of acute fracture or or malalignment. CAT scan abdomen pelvis IMPRESSION: 1. Bilateral tiny nonobstructing renal calcified calculi. No obstructive uropathy bilaterally. 2. No gastrointestinal disease. 3. Status post prior cholecystectomy. Dilated common bile duct consistent postsurgical changes. No obstructing lesion demonstrated. White cell scan IMPRESSION: 1. Area of increased activity in the right proximal thigh/right proximal femur; inflammatory/infectious process cannot be ruled out. 2. No other definite abnormal focal areas of increased activity. MRI right hip IMPRESSION: 1. Mildly impacted fracture of the subcapital left femoral neck is again seen. 2. No evident acute fracture in the right hip. 3. Within the likely right vastus lateralis there is a faintly visualized lesion demonstrating mild increased circumferential signal on T1 and proton density sequences. 4. This may represent a small abscess, and cannot be further characterized. 5. A contrast enhanced MRI examination of the right thigh would be more sensitive and specific. 6. Likely post traumatic low grade strain involving the right obturator externus and obturator internus. CT scan right arm IMPRESSION: Diffuse soft tissue swelling, most pronounced at the level of the elbow, without loculated or drainable abscess detected. Findings suggest cellulitis. No CT evidence of osteomyelitis. No soft tissue gas. Hx of Present Illness 53-year-old female admitted with bilateral leg pains. She was at home for 48 hours prior to her recently being admitted here for altered mental status. Patient refused snf spent on discharge. Hospital Course Hospital course Admitted and evaluated for pain. Probably due to subacute pelvic fracture. There is evidence of Sirs of unknown etiology. Probably due to pain and pelvic fractures. Evaluation of the pelvis shows a small abscess. Not amenable to drainage. Patient was treated by antibiotics. Antibiotics to finish 14-day course 08/29. About 2 days into her hospitalization her right upper arm was noted to be swollen. Patient did have IV access there on her last admission. Ultrasound did not show any DVT. Patient was treated for cellulitis. The cellulitis is resolving nicely. Patient again to finish antibiotics soon. Over the last few days patient is ambulating with assistance and a walker. Her cellulitis is resolving. No fever, pain controlled. Will next need to visit orthopedic surgery and maybe 2 weeks. Patient was seen by infectious disease in consultation. Deconditioning patient was asked to go to snf. Family aware. All are in agreement. She has a subacute issue with altered mental status and agitation and may need to follow-up with neurology down the line. A/P 1. Sirs [multiple etio]. Additionally Sirs due to pelvic fracture/ pain. stable, finish atb for rue cellulitis/ pelvic abscess/ uti. rt vastus lateralis possible small abscess, for atbs [MRI contrast rt thigh prn]. post traumatic low grade strain, rt obturator externus & obturator internus, for conservative mngmnt. 2. Subacute pelvic fracture 3. Subacute left hip fracture on conservative management; sp ortho consult 4. Adrenal insufficiency, stable 5. Hypothyroidism 6. 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 stable for re-eval as outpatient. 9. Nonadherence to meds, for her endocrine processes. Presently excepting replacement therapy. 10. History of stroke 11. History of seizures? 12. Chr hallucinations for many months possible acute psychosis vs delirium. 13. Recent ESBL cystitis s/p Levaquin. 14. Ckd III 15. Dyslipidemia 16. Hypertension 17. Constipation 18. Mechanical fall fractures a few months back 19. Left femur subcapital fracture, subacute. On conservative management treat pain PT probably nwb. 20. Left pelvic fracture, subacute 21. L4 fracture 22. Secondary osteoporosis? 23. RUE cellulitis; no dvt, no abscess on ct. 24. Ftt, consider/ agrees to snf. Last time patient was unable to be at home for more than 48 hours. S: 08/20 rt arm pain 08/21 less distress. Less edema pain of right upper extremity. No diarrhea. 08/22: less distress. arm looks better. 08/23: Less right arm discomfort. No fever diarrhea. Family aware of snf option and agrees 08/24: Ambulating more. No anxiety agitation. 08/25: no distress. pending snf placement O: Vss PE No pallor reg ctab bs+ nt nd; no r r g Rue: less warmth/ edema around elbow Home Meds Active Scripts Magnesium Oxide* (Mag-Oxide*) 400 Mg Tablet, 400 MG PO BID for 7 Days, TAB Prov:ANALISA MOSS MD 08/24/18 Losartan Potassium* (Cozaar*) 25 Mg Tablet, 50 MG PO DAILY for 10 Days, #10 TAB Prov:ANALISA MOSS MD 08/24/18 Potassium Chloride (Potassium Chloride) 20 Meq Packet, 40 MEQ PO DAILY for 7 Days, PACKET Prov:ANALISA MOSS MD 08/24/18 Levothyroxine Sodium* (Levothyroxine Sodium*) 50 Mcg Tablet, 50 MCG PO BEFORE BREAKFAST for 30 Days, #30 TAB Prov:ANALISA MOSS MD 08/10/18 Nifedipine (Procardia Xl) 90 Mg Tab.er.24, 90 MG PO DAILY for 10 Days, #10 TAB 1 Refill Prov:ANALISA MOSS MD 08/10/18 Ferrous Sulfate* (Ferrous Sulfate*) 325 Mg Tabec, 325 MG PO TID for 30 Days, #30 TAB 1 Refill Prov:ANALISA MOSS MD 08/10/18 Sennosides/Docusate Sodium (Dok Plus Tablet) 1 Each Tablet, 2 TAB PO HS for 7 Days, TAB Prov:ANALISA MOSS MD 08/09/18 Pantoprazole* (Pantoprazole*) 40 Mg Tablet.dr, 40 MG PO BID@0600,1800 for 10 Days Prov:ANALISA MOSS MD 08/09/18 Lactobacillus Rhamnosus GG (Culturelle) 1 Each Capsule, 1 CAP PO BID for 10 Days, CAP Prov:ANALISA MOSS MD 08/09/18 Risperidone* (Risperdal*) 0.25 Mg Tablet, 0.25 MG PO BID for 10 Days, TAB Prov:ANALISA MOSS MD 08/09/18 Lacosamide (Vimpat) 10 Mg/1 Ml Solution, 100 MG PO BID for 30 Days Prov:ANALISA MOSS MD 08/09/18 Oxcarbazepine* (Oxcarbazepine*) 300 Mg Tablet, 300 MG PO BID for 30 Days, TAB Prov:ANALISA MOSS MD 08/09/18 Reported Medications Sodium Bicarbonate* (Sodium Bicarbonate*) 650 Mg Tablet, 1950 MG PO TID, TAB 08/02/18 Ondansetron Hcl* (Zofran*) 4 Mg Tab, 4 MG PO Q6H PRN for NAUSEA AND OR VOMITING, TAB 08/02/18 Multivitamins* (Theragran*) 1 Tab Tab, 1 TAB PO DAILY, TAB 08/02/18 Lidocaine (Lidoderm) 1 Each Adh..patch, 1 EACH TP DAILY 08/02/18 Enoxaparin Sodium (Enoxaparin Sodium) 40 Mg/0.4 Ml Syringe, 40 MG SQ DAILY, SYR 08/02/18 Diclofenac Sodium* (Voltaren* Gel) 1% -100 Gm Gel, 2 GM TOP QID, #1 TUB 08/02/18 Clonidine Hcl* (Clonidine Hcl*) 0.1 Mg Tab, 0.1 MG PO BID PRN for ELEVATED BLOOD PRESSURE, TAB 08/02/18 Metoprolol Tartrate* (Lopressor*) 25 Mg Tab, 25 MG PO BID for HOLD IF BP <100 OR HR <55, #60 TAB 08/02/18 Cholecalciferol* (Vitamin D3*) 1,000 Unit Tablet, 1000 UNIT PO DAILY, TAB 08/02/18 Nifedipine* (Nifedipine ER*) 60 Mg Tablet.sa, 60 MG PO DAILY, TAB.SA 08/02/18 Atorvastatin Calcium* (Atorvastatin Calcium*) 20 Mg Tablet, 40 MG PO DAILY, #30 TAB 08/02/18 Acetaminophen (Acetaminophen) 325 Mg Tablet, 650 MG PO Q6 PRN for PAIN, TAB 08/02/18 Discontinued Reported Medications Loperamide Hcl* (Loperamide Hcl*) 2 Mg Cap, 2 MG PO QID PRN for DIARRHEA, CAP 08/02/18 Discontinued Scripts Metoprolol Tartrate* (Lopressor*) 50 Mg Tab, 50 MG PO BID for 10 Days, #20 TAB 1 Refill Prov:ANALISA MOSS MD 08/10/18 Docusate Sodium* (Colace*) 100 Mg Capsule, 100 MG PO TID, #30 CAP Prov:SARWAT CEDILLO 08/02/18 Follow-up Plan appt Dr Zhao 2wks Dr Ade Woody 2wks Dr Dan 2wks Primary Care Provider Care Physician No Primary Time spent on discharge: > 30 minutes ANALISA MOSS MD Aug 26, 2018 14:54
--- NOTE | 2018-08-26 14:55 | PDOCDIS ---
Discharge Instructions CONDITION [id number] Patient Condition: [id number] Stable HOME CARE INSTRUCTIONS: [id number] Diet Instructions: [id number] Low Fat /Cholesterol ACTIVITY: [id number] Activity Restrictions: [id number] Slowly Increase Activity Avoid heavy lifting Do not Drive FOLLOW UP/APPOINTMENTS Follow-up Plan appt Dr Zhao 2wks- Neuro Dr Ade Woody 2wks Dr Dan 2wks ANALISA MOSS MD Aug 26, 2018 14:55
[2018-08-26] MEDS ORDERED: ASPI-1044 PO (14:57)
[2018-08-26] MEDS ORDERED: METO-448 PO (14:57)
== END 2018-08-26 15:29 | DRG 871 ==
LOC: E/R 06:33 → TEL 12:45 → 5EC 08-14 20:44 → UNDODISIN 08-15 20:35
PROVIDERS: ADMIT Internal Medicine; ATTEND Internal Medicine
PROC: 05HY33Z Insertion of Infusion Device into Upper Vein, Percutaneous Approach (ICD-10-PCS; principal; 2018-08-12)
PROC: 30233N1 Transfusion of Nonautologous Red Blood Cells into Peripheral Vein, Percutaneous Approach (ICD-10-PCS; 2018-08-14)
DX: A41.9 Sepsis, unspecified organism (principal); G92 Toxic encephalopathy; E27.40 Unspecified adrenocortical insufficiency; N17.9 Acute kidney failure, unspecified; M60.051 Infective myositis, right thigh; L03.113 Cellulitis of right upper limb; D64.9 Anemia, unspecified; E11.22 Type 2 diabetes mellitus with diabetic chronic kidney disease; E03.9 Hypothyroidism, unspecified; E78.5 Hyperlipidemia, unspecified; F29 Unspecified psychosis not due to a substance or known physiological condition; G40.909 Epilepsy, unspecified, not intractable, without status epilepticus; I12.9 Hypertensive chronic kidney disease with stage 1 through stage 4 chronic kidney disease, or unspecified chronic kidney disease; K21.9 Gastro-esophageal reflux disease without esophagitis; N18.3 Chronic kidney disease, stage 3 (moderate); R62.7 Adult failure to thrive; Z68.21 Body mass index [BMI] 21.0-21.9, adult; S72.012D Unspecified intracapsular fracture of left femur, subsequent encounter for closed fracture with routine healing; S32.592D Other specified fracture of left pubis, subsequent encounter for fracture with routine healing; W01.0XXD Fall on same level from slipping, tripping and stumbling without subsequent striking against object, subsequent encounter; Z86.73 Personal history of transient ischemic attack (TIA), and cerebral infarction without residual deficits; Z91.14 Patient's other noncompliance with medication regimen
CPT/HCPCS: 36430; 36569; 70450; 71045; 72170; 73200; 73590; 73721; 74176; 76937; 78806; 80048; 80053; 80202; 81003; 82270; 82550; 82565; 82962; 83605; 83735; 84100; 84145; 84484; 84520; 85014; 85018; 85025; 85610; 85651; 85730; 86038; 86140; 86850; 86900; 86901; 86920; 87040; 87075; 87081; 87086; 87400; 93005; 93970; 93971; 96372; 96374; 96375; 97110; 97116; 97161; 97530; A9570; J0360; J0692; J1170; J1650; J2060; J2270; J2405; J2997; J3370; J3475; J7030; J7040; P9016; Q9967

== ENCOUNTER 2018-11-26 21:10 | Emergency (ER) | payer MEDICAID, OTHER ==
[~2018-11-26] VITALS: Wt 70.0 kg
[~2018-11-26 21:10] MED LIST changes: +ASPI-1044 PO; -DOCU-144 PO; -HYDR5TAB7 PO; -LEVO500T48 PO; -LOPE-123 PO; +LOSA25TA2 PO; +MAGN400T27 PO; -METO-429 PO; -ONDA4TAB14 PO
[2018-11-26] MEDS ORDERED: ONDANSETRON 4 MG INJ IV STA (21:22)
[2018-11-26] MEDS ORDERED: SOD CHLORIDE 0.9% 500 ML IV STA (21:22)
[2018-11-26] MEDS ORDERED: LORAZEPAM 2 MG INJ IV ONE (23:00)
[2018-11-26] MEDS ORDERED: hydrALAzine 20 MG INJ IV ONE (23:00)
[2018-11-27] MEDS ORDERED: HYDR-3671 PO (00:29)
--- NOTE | 2018-11-27 00:37 | ERD ---
ER Documentation Chief Complaint Chief Complaint bib ra from home for n/v multiple visits for same reason, daughter call 911 HPI This is a very pleasant 53-year-old male comes in with complaints of nausea vomiting and a headache. She notes that her blood pressure severely elevated. Daughter called 911. She denies any fevers chills or focal neurologic complaints. Denies chest pain or shortness of breath. Denies any other current issues. Patient has history of high blood pressure. ROS All systems reviewed and are negative except as per history of present illness. Medications Home Meds Active Scripts Hydralazine Hcl* (Hydralazine Hcl*) 25 Mg Tab, 25 MG PO Q6, #120 TAB Prov:SAWRAT CEDILLO 11/27/18 Aspirin Delayed Release (Aspirin Delayed Release) 81 Mg Tablet.dr, 81 MG PO DAILY for 1 Day Prov:ANALISA MOSS MD 08/26/18 Metoprolol Tartrate* (Lopressor*) 25 Mg Tab, 25 MG PO BID for 1 Day, TAB Prov:ANALISA MOSS MD 08/26/18 Magnesium Oxide* (Mag-Oxide*) 400 Mg Tablet, 400 MG PO BID for 7 Days, TAB Prov:ANALISA MOSS MD 08/24/18 Losartan Potassium* (Cozaar*) 25 Mg Tablet, 50 MG PO DAILY for 10 Days, #10 TAB Prov:ANALISA MOSS MD 08/24/18 Levothyroxine Sodium* (Levothyroxine Sodium*) 50 Mcg Tablet, 50 MCG PO BEFORE BREAKFAST for 30 Days, #30 TAB Prov:ANALISA MOSS MD 08/10/18 Nifedipine (Procardia Xl) 90 Mg Tab.er.24, 90 MG PO DAILY for 10 Days, #10 TAB 1 Refill Prov:ANALISA MOSS MD 08/10/18 Ferrous Sulfate* (Ferrous Sulfate*) 325 Mg Tabec, 325 MG PO TID for 30 Days, #30 TAB 1 Refill Prov:ANALISA MOSS MD 08/10/18 Sennosides/Docusate Sodium (Dok Plus Tablet) 1 Each Tablet, 2 TAB PO HS for 7 Days, TAB Prov:ANALISA MOSS MD 08/09/18 Pantoprazole* (Pantoprazole*) 40 Mg Tablet.dr, 40 MG PO BID@0600,1800 for 10 Days Prov:ANALISA MOSS MD 08/09/18 Lactobacillus Rhamnosus GG (Culturelle) 1 Each Capsule, 1 CAP PO BID for 10 Days, CAP Prov:ANALISA MOSS MD 08/09/18 Risperidone* (Risperdal*) 0.25 Mg Tablet, 0.25 MG PO BID for 10 Days, TAB Prov:ANALISA MOSS MD 08/09/18 Lacosamide (Vimpat) 10 Mg/1 Ml Solution, 100 MG PO BID for 30 Days Prov:ANALISA MOSS MD 08/09/18 Oxcarbazepine* (Oxcarbazepine*) 300 Mg Tablet, 300 MG PO BID for 30 Days, TAB Prov:ANALISA MOSS MD 08/09/18 Reported Medications Sodium Bicarbonate* (Sodium Bicarbonate*) 650 Mg Tablet, 1950 MG PO TID, TAB 08/02/18 Ondansetron Hcl* (Zofran*) 4 Mg Tab, 4 MG PO Q6H PRN for NAUSEA AND OR VOMITING, TAB 08/02/18 Multivitamins* (Theragran*) 1 Tab Tab, 1 TAB PO DAILY, TAB 08/02/18 Lidocaine (Lidoderm) 1 Each Adh..patch, 1 EACH TP DAILY 08/02/18 Enoxaparin Sodium (Enoxaparin Sodium) 40 Mg/0.4 Ml Syringe, 40 MG SQ DAILY, SYR 08/02/18 Diclofenac Sodium* (Voltaren* Gel) 1% -100 Gm Gel, 2 GM TOP QID, #1 TUB 08/02/18 Clonidine Hcl* (Clonidine Hcl*) 0.1 Mg Tab, 0.1 MG PO BID PRN for ELEVATED BLOOD PRESSURE, TAB 08/02/18 Metoprolol Tartrate* (Lopressor*) 25 Mg Tab, 25 MG PO BID for HOLD IF BP <100 OR HR <55, #60 TAB 08/02/18 Cholecalciferol* (Vitamin D3*) 1,000 Unit Tablet, 1000 UNIT PO DAILY, TAB 08/02/18 Nifedipine* (Nifedipine ER*) 60 Mg Tablet.sa, 60 MG PO DAILY, TAB.SA 08/02/18 Atorvastatin Calcium* (Atorvastatin Calcium*) 20 Mg Tablet, 40 MG PO DAILY, #30 TAB 08/02/18 Acetaminophen (Acetaminophen) 325 Mg Tablet, 650 MG PO Q6 PRN for PAIN, TAB 08/02/18 Allergies Allergies: Coded Allergies: No Known Allergy (Unverified , 08/12/18) PMhx/Soc History of Surgery: No Anesthesia Reaction: No Hx Neurological Disorder: No Hx Respiratory Disorders: No Hx Cardiac Disorders: Yes Hx Psychiatric Problems: Yes Hx Miscellaneous Medical Probl: Yes (H,OF CVA, HTN , SEIZURE DISORDER, CKD , SUBACUTE PELVIC FRACTURE , SUBACUTE) Hx Alcohol Use: No Hx Substance Use: No Hx Tobacco Use: No Smoking Status: Never smoker Physical Exam Vitals Vital Signs Date Temp Pulse Resp B/P (MAP) Pulse Ox O2 O2 Flow FiO2 Time Delivery Rate 11/27/18 71 20 104/65 99 Room Air 00:18 (78) 11/26/18 90 18 182/91 99 Room Air 22:58 (121) 11/26/18 98.1 68 19 165/99 96 Room Air 21:37 (121) 11/26/18 98.1 87 19 185/110 96 21:14 (135) Physical Exam Const: No acute distress Head: Atraumatic Eyes: Normal Conjunctiva ENT: Normal External Ears, Nose and Mouth. Neck: Full range of motion. No meningismus. Resp: Clear to auscultation bilaterally Cardio: Regular rate and rhythm, no murmurs Abd: Soft, non tender, non distended. Normal bowel sounds Skin: No petechiae or rashes Back: No midline or flank tenderness Ext: No cyanosis, or edema Neur: Awake and alert Psych: Normal Mood and Affect Result Diagram: 11/26/18213711/26/182137 Results 24 hrs Laboratory Tests Test 11/26/18 21:38 White Blood Count 11.3 10^3/ul Red Blood Count 3.29 10^6/ul Hemoglobin 11.3 g/dl Hematocrit 33.3 % Mean Corpuscular Volume 101.2 fl Mean Corpuscular Hemoglobin 34.3 pg Mean Corpuscular Hemoglobin Concent 33.9 g/dl Red Cell Distribution Width 13.4 % Platelet Count 248 10^3/UL Mean Platelet Volume 10.4 fl Immature Granulocytes % 0.700 % Neutrophils % 70.3 % Lymphocytes % 16.9 % Monocytes % 10.7 % Eosinophils % 0.7 % Basophils % 0.7 % Nucleated Red Blood Cells % 0.0 /100WBC Immature Granulocytes # 0.080 10^3/ul Neutrophils # 8.0 10^3/ul Lymphocytes # 1.9 10^3/ul Monocytes # 1.2 10^3/ul Eosinophils # 0.1 10^3/ul Basophils # 0.1 10^3/ul Nucleated Red Blood Cells # 0.0 10^3/ul Prothrombin Time 12.4 Sec Prothrombin Time Ratio 1.0 INR International Normalized Ratio 0.91 Activated Partial Thromboplast Time 27.8 Sec Sodium Level 139 mmol/L Potassium Level 4.6 mmol/L Chloride Level 105 mmol/L Carbon Dioxide Level 21 mmol/L Anion Gap 13 Blood Urea Nitrogen 29 mg/dl Creatinine 1.49 mg/dl Est Glomerular Filtrat Rate mL/min 36 mL/min Glucose Level 93 mg/dl Calcium Level 8.7 mg/dl Troponin I < 0.012 ng/ml Current Medications Medications Dose Sig/Mery Start Time Status Last (Trade) Ordered Route PRN Stop Time Admin Dose Reason Admin Sodium 500 ml @ Q1H STAT 11/26/18 DC 11/26/18 Chloride 500 mls/hr IV 21:22 21:33 11/26/18 22:21 Ondansetron 4 mg ONCE STAT 11/26/18 DC 11/26/18 HCl (Zofran IV 21:22 21:33 Inj) 11/26/18 21:26 Lorazepam 0.5 mg ONCE ONCE 11/26/18 DC 11/26/18 (Ativan) IV 23:00 22:53 11/26/18 23:01 Hydralazine 10 mg ONCE ONCE 11/26/18 DC 11/26/18 HCl IV 23:00 22:53 (Apresoline) 11/26/18 23:01 Procedures/MDM EKG: Rate/Rhythm: [Normal Sinus Rhythm] QRS, ST, T-waves: [No changes consistent w/ acute ischemia] Impression: [No evidence of ischemia or arrhythmia] Chest X-ray 1V Interpreted by me: Soft Tissue: No acute abnormalities Bones: No acute abnormalities Mediastinum/Cardiac Silhouette/Lungs: [No acute abnormalities] Medical decision making: Patient's neurologic symptoms have stabilized while they have been evaluated in the department and are appropriate for outpatient work up. No e/o meningitis, intracranial bleed, seizure, stroke. Patient's blood pressure was elevated (>120/80) but appears stable without evidence of hypertension emergency or urgency. The patient was counseled about the risks of hypertension and urged to pursue outpatient monitoring and therapy within a week with their primary care physician. Departure Diagnosis: Primary Impression: Nausea and vomiting Vomiting type: unspecified Vomiting Intractability: unspecified Qualified Codes: R11.2 - Nausea with vomiting, unspecified Additional Impression: Malignant hypertension Condition: Stable Patient Instructions: Hypertension, Established, Out Of Control SARWAT CEDILLO November 27, 2018 00:37
[2018-11-27 00:41] VITALS: BP 129/81; PULSE 79; RESP 20
== END 2018-11-27 00:43 | disposition home or self-care (01) ==
LOC: E/R 21:10
DX: R11.2 Nausea with vomiting, unspecified (principal); N18.9 Chronic kidney disease, unspecified; I12.9 Hypertensive chronic kidney disease with stage 1 through stage 4 chronic kidney disease, or unspecified chronic kidney disease; R51 Headache; Z79.82 Long term (current) use of aspirin; Z86.73 Personal history of transient ischemic attack (TIA), and cerebral infarction without residual deficits
CPT/HCPCS: 36415; 70450; 71045; 80048; 84484; 85025; 85610; 85730; 93005; 96374; 96375; J0360; J2060; J2405; J7040; Z7502

== ENCOUNTER 2019-01-17 10:00 | Emergency (ER) | payer MEDICAID, OTHER ==
[~2019-01-17] VITALS: Ht 157.5 cm; Wt 41.1 kg
[~2019-01-17 10:00] MED LIST changes: +HYDR-3671 PO
[2019-01-17 10:08] VITALS: Ht 157.5 cm; Wt 41.1 kg
[2019-01-17] MEDS ORDERED: ONDANSETRON 4 MG INJ IV STA (10:42)
[2019-01-17] MEDS ORDERED: SOD CHLORIDE 0.9% 1,000 ML IV STA (10:42)
[2019-01-17] MEDS ORDERED: AMLO-147 PO (12:03)
[2019-01-17] MEDS ORDERED: ASPI-817 PO (12:04)
[2019-01-17] MEDS ORDERED: ONDA4TAB13 PO (12:06)
[2019-01-17] MEDS ORDERED: MELA3TAB17 PO (12:06)
[2019-01-17] MEDS ORDERED: FAMO20TA18 PO (12:12)
[2019-01-17] MEDS ORDERED: LEVO25TA6 PO (12:13)
[2019-01-17] MEDS ORDERED: CALC-459 PO (12:14)
[2019-01-17] MEDS ORDERED: LACO200T2 PO (12:15)
[2019-01-17] MEDS ORDERED: CALC-72 PO (12:18)
[2019-01-17] MEDS ORDERED: CHOL100062 PO (12:25)
[2019-01-17] MEDS ORDERED: DIV250 PO (12:26)
[2019-01-17] MEDS ORDERED: LABE300T2 PO (12:27)
[2019-01-17] MEDS ORDERED: CITR15SO2 PO (12:28)
[2019-01-17] MEDS ORDERED: ARIP15TA3 PO (12:30)
[2019-01-17] MEDS ORDERED: [UNRECOGNIZED DRUG - OTHER] PO (12:31)
[2019-01-17] MEDS ORDERED: DOCU-144 PO (12:43)
[2019-01-17] MEDS ORDERED: CEPH-443 PO (12:43)
[2019-01-17] MEDS ORDERED: ONDA4TAB14 PO (12:43)
--- NOTE | 2019-01-17 12:47 | ERD ---
ER Documentation Chief Complaint Chief Complaint C/o n/v, epigastric pain and lethargic since Monday on and off. HPI 53-year-old female presents to the emergency room with multiple complaints over at least 1 month timeframe. It appears patient has a subacute process of her recurrent episodes of nausea vomiting abdominal pain worked up with multiple hospitalizations in the past with unclear etiology. Over the last 3 to 4 weeks the patient has had multiple episodes of decreased appetite nonbloody nonbilious emesis and generalized abdominal pain. Family members concerned the patient is more weak and lethargic over the last several days. No fevers or chills chest pain or shortness of breath or headache. Translation services were utilized during this patient's encounter Language: Sinhala Source: In person ROS All systems reviewed and are negative except as per history of present illness. Medications Home Meds Active Scripts Ondansetron (Ondansetron Odt) 4 Mg Tab.rapdis, 4 MG PO Q6H PRN for NAUSEA AND/OR VOMITING, #20 TAB Prov:LEO GUILLEN MD 01/17/19 Cephalexin* (Keflex*) 500 Mg Capsule, 500 MG PO BID for 7 Days, CAP Prov:LEO GUILLEN MD 01/17/19 Docusate Sodium* (Colace*) 100 Mg Capsule, 100 MG PO BID PRN for CONSTIPATION, #30 CAP Prov:LEO GUILLEN MD 01/17/19 Reported Medications [Liquid Active Prot] No Conflict Check, 30 ML PO BID 01/17/19 Aripiprazole* (Abilify*) 15 Mg Tablet, 7.5 MG PO DAILY, #30 TAB 01/17/19 Citric Acid/Sodium Citrate (Oracit Solution 15 Ml) 15 Ml Solution, 15 ML PO BID 01/17/19 Labetalol Hcl* (Labetalol Hcl*) 300 Mg Tablet, 300 MG PO BID, TAB 01/17/19 Divalproex Sodium* (Divalproex Sodium*) 250 Mg Tablet.dr, 250 MG PO BID, #120 TAB 01/17/19 Cholecalciferol* (Vitamin D3*) 1,000 Unit Tablet, 1000 UNIT PO DAILY, TAB 01/17/19 Calcium Carbonate-Vitamin D3 (Calcium 500 + Vit D 200 Caplet) 1 Each Tablet, 1 TAB PO DAILY, TAB 01/17/19 Lacosamide (Vimpat) 200 Mg Tablet, 200 MG PO BID, TAB 01/17/19 Calcium Carbonate (Calcium Carbonate) 500 Mg Tab.chew, 500 MG PO BID, TAB.CHEW 01/17/19 Levothyroxine Sodium* (Levothyroxine Sodium*) 25 Mcg Tablet, 12.5 MCG PO BEFORE BREAKFAST, #30 TAB 01/17/19 Famotidine* (Famotidine*) 20 Mg Tablet, 10 MG PO DAILY, #30 TAB 01/17/19 Ondansetron Hcl* (Zofran*) 4 Mg Tab, 4 MG PO Q6H PRN for NAUSEA AND OR VOMITING, TAB 01/17/19 Melatonin (Melatonin) 3 Mg Tablet.sa, 3 MG PO HS, TAB.SA 01/17/19 Aspirin* (Aspirin* EC) 81 Mg Tablet.dr, 81 MG PO DAILY, TAB 01/17/19 Amlodipine Besylate* (Amlodipine Besylate*) 10 Mg Tablet, 10 MG PO DAILY, #30 TAB 01/17/19 Discontinued Reported Medications Sodium Bicarbonate* (Sodium Bicarbonate*) 650 Mg Tablet, 1950 MG PO TID, TAB 08/02/18 Ondansetron Hcl* (Zofran*) 4 Mg Tab, 4 MG PO Q6H PRN for NAUSEA AND OR VOMITING, TAB 08/02/18 Multivitamins* (Theragran*) 1 Tab Tab, 1 TAB PO DAILY, TAB 08/02/18 Lidocaine (Lidoderm) 1 Each Adh..patch, 1 EACH TP DAILY 08/02/18 Enoxaparin Sodium (Enoxaparin Sodium) 40 Mg/0.4 Ml Syringe, 40 MG SQ DAILY, SYR 08/02/18 Diclofenac Sodium* (Voltaren* Gel) 1% -100 Gm Gel, 2 GM TOP QID, #1 TUB 08/02/18 Clonidine Hcl* (Clonidine Hcl*) 0.1 Mg Tab, 0.1 MG PO BID PRN for ELEVATED BLOOD PRESSURE, TAB 08/02/18 Metoprolol Tartrate* (Lopressor*) 25 Mg Tab, 25 MG PO BID for HOLD IF BP <100 OR HR <55, #60 TAB 08/02/18 Cholecalciferol* (Vitamin D3*) 1,000 Unit Tablet, 1000 UNIT PO DAILY, TAB 08/02/18 Nifedipine* (Nifedipine ER*) 60 Mg Tablet.sa, 60 MG PO DAILY, TAB.SA 08/02/18 Atorvastatin Calcium* (Atorvastatin Calcium*) 20 Mg Tablet, 40 MG PO DAILY, #30 TAB 08/02/18 Acetaminophen (Acetaminophen) 325 Mg Tablet, 650 MG PO Q6 PRN for PAIN, TAB 08/02/18 Discontinued Scripts Hydralazine Hcl* (Hydralazine Hcl*) 25 Mg Tab, 25 MG PO Q6, #120 TAB Prov:SARWAT CEDILLO 11/27/18 Aspirin Delayed Release (Aspirin Delayed Release) 81 Mg Tablet.dr, 81 MG PO DAILY for 1 Day Prov:ANALISA MOSS MD 08/26/18 Metoprolol Tartrate* (Lopressor*) 25 Mg Tab, 25 MG PO BID for 1 Day, TAB Prov:ANALISA MOSS MD 08/26/18 Magnesium Oxide* (Mag-Oxide*) 400 Mg Tablet, 400 MG PO BID for 7 Days, TAB Prov:ANALISA MOSS MD 08/24/18 Losartan Potassium* (Cozaar*) 25 Mg Tablet, 50 MG PO DAILY for 10 Days, #10 TAB Prov:ANALISA MOSS MD 08/24/18 Levothyroxine Sodium* (Levothyroxine Sodium*) 50 Mcg Tablet, 50 MCG PO BEFORE BREAKFAST for 30 Days, #30 TAB Prov:ANALISA MOSS MD 08/10/18 Nifedipine (Procardia Xl) 90 Mg Tab.er.24, 90 MG PO DAILY for 10 Days, #10 TAB 1 Refill Prov:ANALISA MOSS MD 08/10/18 Ferrous Sulfate* (Ferrous Sulfate*) 325 Mg Tabec, 325 MG PO TID for 30 Days, #30 TAB 1 Refill Prov:ANALISA MOSS MD 08/10/18 Sennosides/Docusate Sodium (Dok Plus Tablet) 1 Each Tablet, 2 TAB PO HS for 7 Days, TAB Prov:ANALISA MOSS MD 08/09/18 Pantoprazole* (Pantoprazole*) 40 Mg Tablet.dr, 40 MG PO BID@0600,1800 for 10 Days Prov:ANALISA MOSS MD 08/09/18 Lactobacillus Rhamnosus GG (Culturelle) 1 Each Capsule, 1 CAP PO BID for 10 Days, CAP Prov:ANALISA MOSS MD 08/09/18 Risperidone* (Risperdal*) 0.25 Mg Tablet, 0.25 MG PO BID for 10 Days, TAB Prov:ANALISA MOSS MD 08/09/18 Lacosamide (Vimpat) 10 Mg/1 Ml Solution, 100 MG PO BID for 30 Days Prov:ANALISA MOSS MD 08/09/18 Oxcarbazepine* (Oxcarbazepine*) 300 Mg Tablet, 300 MG PO BID for 30 Days, TAB Prov:ANALISA MOSS MD 08/09/18 Allergies Allergies: Coded Allergies: acetaminophen (Unverified Allergy, Unknown, 01/17/19) hydrocodone (Unverified Allergy, Unknown, 01/17/19) iron (Unverified Allergy, Unknown, 01/17/19) lactose (Unverified Allergy, Unknown, 01/17/19) PMhx/Soc History of Surgery: No Anesthesia Reaction: No Hx Neurological Disorder: Yes (CVA) Hx Respiratory Disorders: No Hx Cardiac Disorders: Yes (HTN, HYPERLIPIDEMIA) Hx Psychiatric Problems: Yes Hx Miscellaneous Medical Probl: Yes (H,OF CVA, HTN , SEIZURE DISORDER, CKD , SUBACUTE PELVIC FRACTURE , GERD) Hx Alcohol Use: No Hx Substance Use: No Hx Tobacco Use: No Smoking Status: Never smoker FmHx Family History: No diabetes Physical Exam Vitals Vital Signs Date Temp Pulse Resp B/P (MAP) Pulse Ox O2 O2 Flow FiO2 Time Delivery Rate 01/17/19 97.7 66 18 106/56 100 Room Air 12:23 (73) 01/17/19 97.4 69 18 141/67 95 10:08 (91) Physical Exam General: Stigmata of dehydration Head: Normocephalic, atraumatic. Eyes: Pupils equally reactive, EOM intact ENT: Moist mucous membranes Neck: Supple, no lymphadenopathy Respiratory: Lungs clear bilaterally, no distress Cardiovascular: RRR, no murmurs, rubs, or gallops Abdominal: Soft, non-tender, non-distended, no peritoneal signs : Deferred MSK: No edema, no unilateral swelling, 5/5 strength Neurologic: Alert and oriented, moving all extremities, normal speech, no focal weakness, no cerebellar signs Skin: No rash Psych: Normal mood Result Diagram: 01/17/19 1110 01/17/19 1109 Results 24 hrs Laboratory Tests Test 01/17/19 11:09 01/17/19 11:10 Sodium Level 141 mmol/L Potassium Level 4.7 mmol/L Chloride Level 111 mmol/L Carbon Dioxide Level 19 mmol/L Anion Gap 11 Blood Urea Nitrogen 23 mg/dl Creatinine 1.53 mg/dl Est Glomerular Filtrat Rate mL/min 35 mL/min Glucose Level 89 mg/dl Calcium Level 8.8 mg/dl Total Bilirubin 0.2 mg/dl Direct Bilirubin 0.00 mg/dl Indirect Bilirubin 0.2 mg/dl Aspartate Amino Transf (AST/SGOT) 33 IU/L Alanine Aminotransferase (ALT/SGPT) 30 IU/L Alkaline Phosphatase 202 IU/L Troponin I < 0.012 ng/ml Total Protein 7.1 g/dl Albumin 3.9 g/dl Globulin 3.20 g/dl Albumin/Globulin Ratio 1.21 Lipase 89 U/L White Blood Count 8.0 10^3/ul Red Blood Count 2.87 10^6/ul Hemoglobin 9.5 g/dl Hematocrit 28.4 % Mean Corpuscular Volume 99.0 fl Mean Corpuscular Hemoglobin 33.1 pg Mean Corpuscular Hemoglobin Concent 33.5 g/dl Red Cell Distribution Width 13.3 % Platelet Count 175 10^3/UL Mean Platelet Volume 11.4 fl Immature Granulocytes % 0.400 % Neutrophils % 58.6 % Lymphocytes % 29.2 % Monocytes % 8.8 % Eosinophils % 1.9 % Basophils % 1.1 % Nucleated Red Blood Cells % 0.0 /100WBC Immature Granulocytes # 0.030 10^3/ul Neutrophils # 4.7 10^3/ul Lymphocytes # 2.3 10^3/ul Monocytes # 0.7 10^3/ul Eosinophils # 0.2 10^3/ul Basophils # 0.1 10^3/ul Nucleated Red Blood Cells # 0.0 10^3/ul Urine Color YELLOW Urine Clarity SLIGHTLY CLOUDY Urine pH 6.0 Urine Specific [place] 1.014 Urine Ketones NEGATIVE mg/dL Urine Nitrite NEGATIVE mg/dL Urine Bilirubin NEGATIVE mg/dL Urine Urobilinogen NEGATIVE mg/dL Urine Leukocyte Esterase 3+ [place]/ul Urine Microscopic RBC 4 /HPF Urine Microscopic WBC 77 /HPF Urine Squamous Epithelial Cells FEW /HPF Urine Hemoglobin NEGATIVE mg/dL Urine Glucose NEGATIVE mg/dL Urine Total Protein NEGATIVE mg/dl Current Medications Medications Dose Sig/Mery Start Time Status Last (Trade) Ordered Route PRN Stop Time Admin Dose Reason Admin Sodium 1,000 ml @ Q1H STAT 01/17/19 DC 01/17/19 Chloride 1,000 mls/hr IV 10:42 11:06 01/17/19 11:41 Ondansetron 4 mg ONCE STAT 01/17/19 DC 01/17/19 HCl (Zofran IV 10:42 11:06 Inj) 01/17/19 10:43 Procedures/MDM EKG, MONITORS, & DIAGNOSTIC IMAGING: EKG: I reviewed and interpreted a 12-lead EKG. Rhythm: Normal sinus rhythm ST Changes: No contiguous ST segment elevations T waves: No contiguous T wave inversions Impression: No evidence of acute cardiac ischemia CT abdomen and pelvis: IMPRESSION: 1. Tiny nonobstructive left renal calculi. No hydronephrosis or urolithiasis. 2. Markedly distended stomach with ingested content. 3. No bowel obstruction. Retained stool throughout the colon and rectum. 4. Healing fracture at the right puboacetabular junction and bilateral inferior pubic rami along with S2. RPTAT: AAEE Chest x-ray: I reviewed and interpreted a 1 view of the chest Mediastinum: No enlargement Cardiac silhouette: No cardiomegaly Airspace: Clear lung craven bilaterally without evidence of pneumothorax Bones: No evidence of fracture LAB INTERPRETATION: I reviewed the laboratory testing and it shows mild renal insufficiency MEDICAL DECISION MAKING: Patient presents with a subacute process. The patient appears to have multiple hospitalizations for similar episodes that have been unrevealing in the past. Patient has had at least 3 weeks of symptoms and has a nonfocal neurologic exam and abdominal exam here. At this point time on sure of the patient's acute illness. I believe this is a subacute process and likely needs to be followed up on an outpatient basis. Outpatient GI follow-up would certainly be necessary. Patient will be evaluated for dehydration or acute interabdominal process but lower pretest probability for this process. ER COURSE: * The patient was given IV fluids. Her symptoms are improved. * Laboratory testing is consistent with mild dehydration with possible urinary tract infection. The patient can be discharged with Keflex. Zofran. Patient also has evidence of possible constipation, Colace would be reasonable. * However at this time, the patient does not have an acute emergent medical condition that warrants hospitalization. She has a subacute process and has been worked up in the past. I believe the patient can be safely discharged home with family member who states that they can care for her. Symptom control medication will be reasonable. CONSULTATION: None DISPOSITION PLAN: The patient does not have an identifiable emergent medical condition that warrants inpatient hospitalization at this time. The patient is deemed safe for discharge with outpatient follow-up. We discussed follow up with the patient's primary care doctor within 24 to 48 hours as needed. We also discussed return to the emergency room for worsening symptoms or worsening condition. Outpatient referral: None required Discharge Medications: Zofran, Keflex, Colace Departure Diagnosis: Primary Impression: Dehydration Additional Impressions: UTI (urinary tract infection) Urinary tract infection type: acute cystitis Hematuria presence: without hematuria Qualified Codes: N30.00 - Acute cystitis without hematuria Constipation Constipation type: unspecified constipation type Qualified Codes: K59.00 - Constipation, unspecified Condition: Stable Patient Instructions: Understanding Urinary Tract Infections (UTIs), Constipation (Adult) Referrals: [facility] Usted se javier hecho un examen mdico de control que le indica que no est en jennifer condicin que requiera tratamiento urgente en el Departamento de Emergencia. Un estudio ms profundo y el tratamiento de mcmillan condicin pueden esperar sin ningn riesgo hasta que usted sea atendida/o en el consultorio de mcmillan mdico o jennifer clnica. Es responsabilidad suya arreglar jennifer gerson para el seguimiento del ruiz. MANEJO DE CONDICIONES NO URGENTES EN EL FUTURO 1) Si usted tiene un mdico de atencin primaria: Usted debera llamar a mcmillan mdico de atencin primaria antes de venir al d epartamento de emergencia. Despus de las horas de consultorio, mcmillan doctor o mcmillan asociado/a est disponible por telfono. El mdico o enfermero de yaya en el servicio telefnico puede asesorarle por shantel medio para atender el problema, o ruiz contrario se puede programar jennifer gerson. 2) Si usted no tiene un mdico de atencin primaria: Llame al mdico o clnica de referencia que aparece abajo aime las horas de consultorio para hacer jennifer gerson para que le vean. CLINICAS: [place] [id number] [phone] [facility] [phone] [facility] [phone] [place] [address] [phone] [place] [id number] [phone] [facility] [phone] [address] [facility]. [facility] () Usted se javier hecho un examen mdico de control que le indica que no est en jennifer condicin que requiera tratamiento urgente en el Departamento de Emergencia. Un estudio ms profundo y el tratamiento de mcmillan condicin pueden esperar sin ningn riesgo hasta que ted sea atendida/o en el consultorio de mcmillan mdico o jennifer clnica. Es responsabilidad suya arreglar jennifer gerson para el seguimiento del ruiz. MANEJO DE CONDICIONES NO URGENTES EN EL FUTURO 1) Si usted tiene un mdico de atencin primaria: Usted debera llamar a mcmillan mdico de atencin primaria antes de venir al departamento de emergencia. Despus de las horas de consultorio, mcmillan doctor o mcmillan asociado/a est disponible por telfono. El mdico o enfermero de yaya en el servicio telefnico puede asesorarle por shantel medio para atender el problema, o ruiz contrario se puede programar jennifer gerson. 2) Si usted no tiene un mdico de atencin primaria: Llame al mdico o condado institucions de referencia que aparece abajo aime las horas de consultorio para hacer jennifer gerson para que le vean. SI USTED NO PUEDE PAGAR PARA JENNY UN MEDICO puede ir a: [facility] [address] [place] [address] [facility] [address] [place] [address] [facility] [address] [place] [address] [address] [facility] [address] [place], [place] [id number] Additional Instructions: Llame al doctor nombrado abajo (Referral Sources) MAANA y jessie jennifer GERSON PARA DENTRO DE JENNIFER SEMANA. Dgale a la secretaria que nosotros le instruimos hacer esta gerson.Avise o llame si mcmillan condicin se empeora antes de la gerson. LEO GUILLEN MD Jan 17, 2019 12:47
[2019-01-17 13:15] VITALS: BP 129/65; PULSE 75; RESP 20
== END 2019-01-17 13:18 | disposition home or self-care (01) ==
LOC: E/R 10:00
DX: E86.0 Dehydration (principal); I12.9 Hypertensive chronic kidney disease with stage 1 through stage 4 chronic kidney disease, or unspecified chronic kidney disease; N18.9 Chronic kidney disease, unspecified; K59.00 Constipation, unspecified; N30.00 Acute cystitis without hematuria; R40.2142 Coma scale, eyes open, spontaneous, at arrival to emergency department; R40.2362 Coma scale, best motor response, obeys commands, at arrival to emergency department; R40.2252 Coma scale, best verbal response, oriented, at arrival to emergency department; Z79.82 Long term (current) use of aspirin; Z86.73 Personal history of transient ischemic attack (TIA), and cerebral infarction without residual deficits
CPT/HCPCS: 36415; 71045; 74176; 80053; 81001; 83690; 84484; 85025; 93005; 96374; J2405; J7030; Z7502